=== PATIENT | male | born 1980 | race Caucasian/White ===

== ENCOUNTER 2016-12-21 06:32 | Emergency (ER) | payer OTHER ==
[~2016-12-21] VITALS: Ht 175.3 cm; Wt 110.0 kg
[2016-12-21 06:37] VITALS: BP 123/90; PULSE 91; RESP 18; TEMP 98.2; O2SAT 97
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
[2016-12-21] MEDS ORDERED: ACETAMINOPHEN/HYDROcodone 325 MG/5 MG TAB PO ONE (07:15)
[2016-12-21] MEDS ORDERED: ULTR50TA5 PO (08:00)
[2016-12-21] MEDS ORDERED: MOBI15TA PO (08:00)
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
[2016-12-21 08:09] VITALS: RESP 18
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
== END 2016-12-21 08:09 | disposition home or self-care (01) ==
LOC: PHED 06:32
DX: S40.011A Contusion of right shoulder, initial encounter (principal); S20.211A Contusion of right front wall of thorax, initial encounter; S70.01XA Contusion of right hip, initial encounter; S90.31XA Contusion of right foot, initial encounter; V18.9XXA Unspecified pedal cyclist injured in noncollision transport accident in traffic accident, initial encounter
CPT/HCPCS: 71101; 72100; 73030; 73502; 73610; 73630; 99284

== ENCOUNTER 2017-01-23 20:15 | Emergency (ER) | payer OTHER ==
[~2017-01-23] VITALS: Ht 175.3 cm; Wt 114.0 kg
[~2017-01-23 20:15] MED LIST: MOBI15TA PO; ULTR50TA5 PO
[2017-01-23 20:20] VITALS: BP 139/100; PULSE 99; RESP 18; TEMP 98.3; O2SAT 96
[2017-01-23] MEDS ORDERED: SODIUM CHLOR 0.9% 1000 ML INJ 1,000 ML IV SCH (20:45)
[2017-01-23] MEDS ORDERED: ONDANSETRON HCL 4 MG/2 ML VIAL IVP ONE (20:45)
[2017-01-23] MEDS ORDERED: SODIUM CHLORIDE 0.9% FLUSH 10 ML FLUSH IV FLUSH PRN (20:45)
[2017-01-23] MEDS ORDERED: MORPHINE SULFATE 4 MG/ML INJ IV PUSH ONE ×2 (20:45→22:00)
--- NOTE | 2017-01-23 20:49 | PD ---
HPI Chief Complaint: Abdominal Pain Time Seen by Provider: 20:40 Travel History International Travel<30 days: No Contact w/Intl Traveler<30days: No Traveled to known affect area: No History of Present Illness HPI 36-year-old male here for evaluation of abdominal pain. Patient reports right lower quadrant abdominal pain that has been going on for the last 2 days, constant, intermittently worse at times. Pain is currently 6 out of 10 and described as a pressure, nonradiating, worse with movement and palpation. Today pain is associated with nausea and vomiting which consists of recently of food. He had a normal bowel movement earlier today. He denies melena or hematochezia. No diarrhea. No history of abdominal surgeries. No urinary symptoms. PFSH Past Medical History Diminished Hearing: No Kidney Stones: Yes Immunizations Current: Yes Social History Alcohol Use: Yes Tobacco Use: No Substance Use: No Allergies-Medications (Allergen,Severity, Reaction): Coded Allergies: No Known Allergies (Unverified , 01/23/17) Reported Meds & Prescriptions Reported Meds & Active Scripts Active Review of Systems Except as stated in HPI: all other systems reviewed are Neg Physical Exam Narrative GENERAL: Well-developed, well-nourished, overweight, comfortable, no acute distress. SKIN: Focused skin assessment warm/dry. No rash. HEAD: Atraumatic. Normocephalic. EYES: Pupils equal and round. No scleral icterus. No injection or drainage. ENT: Mucous membranes pink and moist. NECK: Trachea midline. No JVD. CARDIOVASCULAR: Regular rate and rhythm. RESPIRATORY: No accessory muscle use. Clear to auscultation. Breath sounds equal bilaterally. GASTROINTESTINAL: Abdomen soft, nondistended. Moderate right lower quadrant and left lower quadrant tenderness without peritoneal signs. Mild right upper quadrant tenderness. Normal bowel sounds. No hernias. MUSCULOSKELETAL: No obvious deformities. No clubbing. No cyanosis. No edema. NEUROLOGICAL: Awake and alert. No obvious cranial nerve deficits. Motor grossly within normal limits. Normal speech. PSYCHIATRIC: Appropriate mood and affect; insight and judgment normal. Data Data Last Documented VS Vital Signs Date Time Temp Pulse Resp B/P Pulse Ox O2 Delivery O2 Flow Rate FiO2 01/23/17 20:20 98.3 99 18 139/100 96 Orders Complete Blood Count With Diff (01/23/17 20:45) Comprehensive Metabolic Panel (01/23/17 20:45) Lipase (01/23/17 20:45) Lactic Acid (01/23/17 20:45) Prothrombin Time / Inr (Pt) (01/23/17 20:45) Act Partial Throm Time (Ptt) (01/23/17 20:45) Urinalysis - C+S If Indicated (01/23/17 20:45) Ct Abd/Pel W Iv Contrast(Rout) (01/23/17 20:45) Iv Access Insert/Monitor (01/23/17 20:45) Ecg Monitoring (01/23/17 20:45) Oximetry (01/23/17 20:45) Ondansetron Inj (Zofran Inj) (01/23/17 20:45) Sodium Chlor 0.9% 1000 Ml Inj (Ns 1000 M (01/23/17 20:45) Sodium Chloride 0.9% Flush (Ns Flush) (01/23/17 20:45) Morphine Inj (Morphine Inj) (01/23/17 21:30) Iohexol 350 Inj (Omnipaque 350 Inj) (01/23/17 21:35) Morphine Inj (Morphine Inj) (01/23/17 22:00) Labs Laboratory Tests Test 01/23/17 01/23/17 20:55 21:00 Urine Color YELLOW Urine Turbidity CLEAR Urine pH 6.0 Urine Specific Burt 1.022 Urine Protein NEG mg/dL Urine Glucose (UA) NEG mg/dL Urine Ketones NEG mg/dL Urine Occult Blood NEG Urine Nitrite NEG Urine Bilirubin NEG Urine Leukocyte Esterase NEG Urine RBC 0-3 /hpf Urine WBC 0-2 /hpf Urine Transitional Epithelial 0-5 /hpf Cells Urine Mucus RARE /lpf Microscopic Urinalysis Comment CULT NOT INDICATED White Blood Count 12.4 TH/MM3 Red Blood Count 5.10 MIL/MM3 Hemoglobin 14.6 GM/DL Hematocrit 43.6 % Mean Corpuscular Volume 85.5 FL Mean Corpuscular Hemoglobin 28.6 PG Mean Corpuscular Hemoglobin 33.5 % Concent Red Cell Distribution Width 12.7 % Platelet Count 317 TH/MM3 Mean Platelet Volume 8.0 FL Neutrophils (%) (Auto) 59.9 % Lymphocytes (%) (Auto) 26.0 % Monocytes (%) (Auto) 7.7 % Eosinophils (%) (Auto) 3.3 % Basophils (%) (Auto) 3.1 % Neutrophils # (Auto) 7.4 TH/MM3 Lymphocytes # (Auto) 3.2 TH/MM3 Monocytes # (Auto) 1.0 TH/MM3 Eosinophils # (Auto) 0.4 TH/MM3 Basophils # (Auto) 0.4 TH/MM3 CBC Comment DIFF FINAL Differential Comment Prothrombin Time 10.7 SEC Prothromb Time International 1.0 RATIO Ratio Activated Partial 29.6 SEC Thromboplast Time Sodium Level 140 MEQ/L Potassium Level 3.4 MEQ/L Chloride Level 104 MEQ/L Carbon Dioxide Level 25.4 MEQ/L Anion Gap 11 MEQ/L Blood Urea Nitrogen 11 MG/DL Creatinine 0.83 MG/DL Estimat Glomerular Filtration 104 ML/MIN Rate Random Glucose 123 MG/DL Lactic Acid Level 1.9 mmol/L Calcium Level 9.2 MG/DL Total Bilirubin 0.2 MG/DL Aspartate Amino Transf 15 U/L (AST/SGOT) Alanine Aminotransferase 38 U/L (ALT/SGPT) Alkaline Phosphatase 90 U/L Total Protein 7.8 GM/DL Albumin 3.9 GM/DL Lipase 139 U/L [facility] Medical Decision Making Medical Screen Exam Complete: Yes Emergency Medical Condition: Yes Differential Diagnosis Appendicitis, colitis, cystitis, diverticulitis, UTI, nephrolithiasis, ureterolithiasis Narrative Course Vital signs reviewed. CBC shows WBC 12.4, hemoglobin 14.6, hematocrit 43.6, platelets 317. CMP is remarkable for potassium 3.4 otherwise unremarkable. UA is not suggestive of UTI. CT abdomen/pelvis: CONCLUSION: 1. Unremarkable bowel gas pattern and normal appendix. 2. 3 mm nonobstructing left renal calculus. 3. Mild hepatic steatosis. 4. Unremarkable gallbladder. Patient and the patient's significant other were made aware of all findings. Morphine helped with his pain, however he is requesting another dose. There are no peritoneal signs on exam. At this point patient is stable for discharge home with outpatient follow-up this week. He states he has an appointment with a primary care physician on Monday. I will also given the name of the price analyst supervisor display fabrication with whom to follow-up with this week. He was informed on when to return to the emergency department. He verbalizes understanding and agreement with plan. Diagnosis Primary Impression: Abdominal pain Qualified Code: R10.30 - Lower abdominal pain Referrals: Marcus Ocampo MD 3 days [facility] Primary Care Physician 3 days Additional Instructions: Follow-up with a primary care physician this week. Follow-up with price analyst Dr. Ocampo or a price analyst of your choice this week. Return to the emergency department for worsening symptoms or any other concerns. Scripts Dicyclomine (Bentyl)10 Mg Cap10 Mg PO TID PRN (Bowel Management) #15 CAP Ref 0 Prov:Jorge Clements MD 01/23/17 Oxycodone-Acetaminophen (Percocet)5-325 mg Tab1 Tab PO Q6H PRN (PAIN) #15 TAB Ref 0 Prov:Jorge Clements MD 01/23/17 Disposition: 01 DISCHARGE HOME Condition: Stable Jorge Clements MD Jan 23, 2017 20:49
[2017-01-23 21:08] LABS: BLOOD, URINE NEG (NEG); GLUCOSE,URINE NEG (NEG); KETONE, URINE NEG (NEG); NITRITE,URINE NEG (NEG)
[2017-01-23 21:09] LABS: AUTOMATED NEUTROPHIL # 7.4 TH/MM3 (1.8-7.7); BASOPHIL # 0.4 TH/MM3 (0-0.2); BASOPHIL % 3.1 % (0.0-2.0); EOSINOPHIL # 0.4 TH/MM3 (0-0.4); EOSINOPHIL % 3.3 % (0.0-4.0); HEMATOCRIT 43.6 % (39.0-51.0); LYMPHOCYTE # 3.2 TH/MM3 (1.0-4.8); MEAN CELL VOLUME 85.5 FL (80.0-100.0); MEAN CORPUSCULAR HEMOGLOBIN 28.6 PG (27.0-34.0); MEAN CORPUSCULAR HGB CONC 33.5 % (32.0-36.0); MONO % 7.7 % (0.0-8.0); NEUT % 59.9 % (16.0-70.0); PLATELET COUNT 317 TH/MM3 (150-450); RED CELL DISTRIBUTION WIDTH 12.7 % (11.6-17.2); WHITE BLOOD COUNT 12.4 TH/MM3 (4.0-11.0)
[2017-01-23 21:13] LABS: URINE COLOR YELLOW (YELLW/STRAW)
[2017-01-23 21:14] LABS: COMMENT (UR) CULT NOT INDICATED; CULTURE IF INDICATED CULT NOT INDICATED; MUCUS URINE RARE /lpf (OCC); RBC, URINE 0-3 /hpf (0-3); TRANSITIONAL EPI CELLS, URINE 0-5 /hpf; WBC, URINE 0-2 /hpf (0-5)
[2017-01-23 21:16] LABS: CHLORIDE 104 MEQ/L (98-107); POTASSIUM 3.4 MEQ/L (3.5-5.1); SODIUM (NA) 140 MEQ/L (136-145)
[2017-01-23 21:20] LABS: ANION GAP 11 MEQ/L (5-15); BICARBONATE 25.4 MEQ/L (21.0-32.0)
[2017-01-23 21:21] LABS: BLOOD UREA NITROGEN 11 MG/DL (7-18)
[2017-01-23 21:23] LABS: ALT (GPT) 38 U/L (12-78); APTT (PATIENT) 29.6 SEC (24.3-30.1); AST (GOT) 15 U/L (15-37); GLOMERULAR FILTRATION RATE 104 ML/MIN (>89); PROTHROMBIN TIME - PATIENT 10.7 SEC (9.8-11.6)
[2017-01-23 21:25] LABS: TOTAL BILIRUBIN ADULT 0.2 MG/DL (0.2-1.0)
[2017-01-23 21:26] LABS: ALKALINE PHOSPHATASE 90 U/L (45-117)
[2017-01-23] MEDS ORDERED: MORPHINE SULFATE 8 MG/ML INJ IV PUSH ONE (21:30)
[2017-01-23] MEDS ORDERED: IOHEXOL 350 MG/ML 10 ML VIAL (for RAD DIAG) IV ONE (21:35)
--- NOTE | 2017-01-23 21:47 | RADRPT ---
EXAM DATE/TIME: 01/23/2017 21:23 [facility] COMPARISON: No previous studies available for comparison. INDICATIONS : Right lower quadrant pain x 2 days. Nausea and vomiting. IV CONTRAST: 85 cc Omnipaque 350 (iohexol) IV ORAL CONTRAST: No oral contrast ingested. RADIATION DOSE: 21.02 CTDIvol (mGy) MEDICAL HISTORY : Renal calculi. SURGICAL HISTORY : None. ENCOUNTER: Initial ACUITY: 2 days PAIN SCALE: 6/10 LOCATION: Right lower quadrant TECHNIQUE: Volumetric scanning of the abdomen and pelvis was performed. Using automated exposure control and ad justment of the mA and/or kV according to patient size, radiation dose was kept as low as reasonably achievable to obtain optimal diagnostic quality images. DICOM format image data is available electro nically for review and comparison. FINDINGS: LOWER LUNGS: The visualized lower lungs are clear. LIVER: Homogeneous density without lesion. There is no dilation of the biliary tree. No calcified gallston es. There is mild hepatic steatosis. SPLEEN: Normal size without lesion. PANCREAS: Within normal limits. KIDNEYS: Normal in size and shape. There is no solid mass, stone or hydronephrosis. There is a 3 mm nonobstru cting left renal calculus. There are simple cysts in the central left kidney and right upper pole. ADRENAL GLANDS: Within normal limits. VASCULAR: There is no aortic aneurysm. BOWEL/MESENTERY: The stomach, small bowel, and colon demonstrate no acute abnormality. There is no free intraperitone al air or fluid. ABDOMINAL WALL: Within normal limits. RETROPERITONEUM: There is no lymphadenopathy. BLADDER: No wall thickening or mass. REPRODUCTIVE: Within normal limits. INGUINAL: There is no lymphadenopathy or hernia. MUSCULOSKELETAL: Within normal limits for patient age. CONCLUSION: 1. Unremarkable bowel gas pattern and normal appendix. 2. 3 mm nonobstructing left renal calculus. 3. Mild hepatic steatosis. 4. Unremarkable gallbladder. Jose Manuel Sanchez MD on January 23, 2017 at 21:42 Board Certified Radiologist. This report was verified electronically.
[2017-01-23 21:50] LABS: HEMO FLAGS DIFF FINAL
[2017-01-23] MEDS ORDERED: DICYCLOMINE HCL 10 MG CAP PO ONE (22:00)
[2017-01-23] MEDS ORDERED: DICY10 PO (22:03)
[2017-01-23] MEDS ORDERED: PERC5TAB12 PO (22:03)
[2017-01-23] MEDS ORDERED: MORPHINE SULFATE 8 MG/ML INJ IV PUSH SCH (22:30)
[2017-01-23 23:00] VITALS: RESP 18
[2017-01-23 23:13] VITALS: BP 138/98
== END 2017-01-23 23:15 | disposition home or self-care (01) ==
LOC: PHED 20:15
DX: R10.30 Lower abdominal pain, unspecified (principal)
CPT/HCPCS: 74177; 80053; 81001; 83605; 83690; 85025; 85610; 85730; 96361; 96374; 96375; 96376; 99285; J2270; J2405; J7030; Q9967

== ENCOUNTER 2017-01-25 07:27 | Observation (INO) | payer OTHER ==
[~2017-01-25] VITALS: Ht 175.3 cm; Wt 113.7 kg
[~2017-01-25 07:27] MED LIST changes: +DICY10 PO; -MOBI15TA PO; +PERC5TAB12 PO; -ULTR50TA5 PO
[2017-01-25 07:40] VITALS: BP 122/89; PULSE 91; RESP 16; TEMP 98.4; O2SAT 94
[2017-01-25 07:45] LABS: BLOOD, URINE NEG (NEG); GLUCOSE,URINE NEG (NEG); KETONE, URINE NEG (NEG); NITRITE,URINE NEG (NEG)
[2017-01-25 07:53] LABS: METHOD OF COLLECTION CLEAN CATCH; URINE COLOR YELLOW (YELLW/STRAW)
[2017-01-25 07:54] LABS: COMMENT (UR) CULT NOT INDICATED; CULTURE IF INDICATED CULT NOT INDICATED; RBC, URINE 0-3 /hpf (0-3); SQUAMOUS EPITHELIAL CELL URINE 0-5 /hpf (0-5)
[2017-01-25] MEDS ORDERED: MORPHINE SULFATE 4 MG/ML INJ IV PUSH ONE (08:00)
[2017-01-25] MEDS ORDERED: ONDANSETRON HCL 4 MG/2 ML VIAL IV PUSH ONE (08:00)
--- NOTE | 2017-01-25 08:07 | PD ---
HPI Chief Complaint: Abdominal Pain Time Seen by Provider: 07:34 Travel History International Travel<30 days: No Contact w/Intl Traveler<30days: No Traveled to known affect area: No History of Present Illness HPI This is a 36-year-old male patient who presents with a complaint of persistent abdominal pain. Patient states symptoms started approximately 1 week ago. Patient was seen in the ER on January 23 of this year when the abdomen was done and was read as negative. Patient RECURRENT episodes of vomiting. Patient notes increased pain this morning rated 10/10. Patient denies fever chills but notes a decrease in appetite and oral intake. Patient denies urinary symptoms. Patient states he had a history of kidney stones in the past but states the pain feels different this time . PFSH Past Medical History Medical History: Denies Significant Hx Diminished Hearing: No Kidney Stones: Yes Immunizations Current: Yes Past Surgical History Surgical History: No Previous Surgery Social History Alcohol Use: Yes Tobacco Use: No Substance Use: No Allergies-Medications (Allergen,Severity, Reaction): Coded Allergies: No Known Allergies (Unverified , 01/25/17) Reported Meds & Prescriptions Reported Meds & Active Scripts Active Bentyl (Dicyclomine HCl) 10 Mg Cap 10 Mg PO TID PRN Percocet (Oxycodone-Acetaminophen) 5-325 mg Tab 1 Tab PO Q6H PRN Review of Systems ROS Limitations: Clinical Condition General / Constitutional: No: Fever, Chills, Weight Gain, Weight Loss, Other Eyes: No: Diploplia, Blurred Vision, Photophobia, Drainage, Redness, Foreign Body Sensation, Pain, Tearing, Blind Spots, Visual changes, Blindness, Other HENT: No: Headaches, Vertigo, Lightheadedness, Sore Throat, Rhinitis, Rhinorrhea, Congestion, Nosebleed, Neck Stiffness, Neck Pain, Masses, Gingival Bleeding, Dental Difficulties, Ear Discharge, Earache, Other Cardiovascular: No: Chest Pain or Discomfort, Palpitations, Irregular Rhythm, Tachycardia, Diaphoresis, Syncope, Dyspnea on exertion, Varicosities, Edema, Cyanosis, Varicosities, Phlebitis, Claudication, Other Respiratory: No: Cough, Shortness of Breath, Wheezing, Sneezing, Orthopnea, Hemoptysis, Stridor, Night Sweats, Pleuritic Pain, Other Gastrointestinal: Positive: Nausea, Vomiting, Diarrhea, Abdominal Pain, Loss of Appetite, No: Hematemesis, Hematochezia, Constipation, Changes in Bowel Habits, Indigestion, Dysphagia, Other Genitourinary: No: Urgency, Frequency, Dysuria, Nocturia, Hematuria, Decreased Urinary Output, Oliguria, Hesitancy, Dribbling, Incontinence, Pelvic Pain, Flank Pain, Dyspareunia, Discharge, Dysmenorrhea, Menorrhagia, Metorrhagia, Vaginal Bleeding, Other Musculoskeletal: No: Myalgias, Arthralgias, Limited ROM, Weakness, Cramping, Edema, Pain, Atrophy, Other Skin: No Rash, No Itching, No Dryness, No Lumps, No Hives, No Change in Pigmentation, No Change in nails, No Alopecia, No Lesions, No Breast Lumps, No Breast Tenderness, No Breast Swelling, No Other Neurologic: No: Weakness, Dizziness, Syncope, Focal Abnormalities, Coordination Problem, Tremor, Ataxia, Headache, Change in Mentation, Slurred Speech, Paresthesia, Incontinence, Seizures, Sensory Disturbance, Other Psychiatric: No: Anxiety, Depression, Suicidal Ideations, Disorder of Thought, Mood Disorder, Substance Abuse, Homicidal Ideation, Other Endocrine: No: Heat Intolerance, Cold Intolerance, Polyuria, Polydipsia, Other Hematologic/Lymphatic: No: Easy Bruising, Lymph Node Enlargement, Other Physical Exam Exam Limitations: Clinical Condition Narrative GENERAL: [-]O male in moderate distress secondary to pain SKIN: Focused skin assessment warm/dry.no lesions no cyanosis no erythema HEAD: Atraumatic. Normocephalic. EYES: Pupils equal and round and reactive . No scleral icterus. No injection or drainage. ENT: No nasal bleeding or discharge. Oral mucosa appears dry NECK: Trachea midline. No JVD. CARDIOVASCULAR: S1-S2 appreciated. Regular rate and rhythm. No murmur appreciated. Pulses normal throughout. RESPIRATORY: No accessory muscle use. Clear to auscultation. Breath sounds equal bilaterally. GASTROINTESTINAL: Abdomen obese soft no peritoneal signs positive tenderness in the LLQ mild failure exquisite tenderness in the right lower quadrant no masses felt no organomegaly rectal exam deferred patient denies bloody stools or rectal pain MUSCULOSKELETAL: No obvious deformities. No clubbing. No cyanosis. No edema. NEUROLOGICAL: Awake and alert and oriented 3.. No obvious cranial nerve deficits. Motor and sensory exam grossly within normal limits. Normal speech. No meningeal signs. PSYCHIATRIC: Appropriate mood and affect; insight and judgment normal. No suicidal or homicidal ideation. Data Data Last Documented VS Vital Signs Date Time Temp Pulse Resp B/P Pulse Ox O2 Delivery O2 Flow Rate FiO2 01/25/17 08:56 87 16 154/74 94 Room Air 01/25/17 07:40 98.4 Orders Urinalysis - C+S If Indicated (01/25/17 07:30) Complete Blood Count With Diff (01/25/17 07:57) Lipase (01/25/17 07:57) Comprehensive Metabolic Panel (01/25/17 07:57) Direct Bilirubin (01/25/17 07:57) Sodium Chlor 0.9% 1000 Ml Inj (Ns 1000 M (01/25/17 08:00) Ondansetron Inj (Zofran Inj) (01/25/17 08:00) Morphine Inj (Morphine Inj) (01/25/17 08:15) Ct Abd/Pel W Iv Contrast(Rout) (01/25/17 ) Diatrizoate Liq ( Gastroview Liq) (01/25/17 08:43) Fentanyl Inj (Fentanyl Inj) (01/25/17 08:45) Diatrizoate Liq ( Gastroview Liq) (01/25/17 08:48) Oral Contrast - Adult (01/25/17 09:00) Iohexol 350 Inj (Omnipaque 350 Inj) (01/25/17 10:09) Morphine Inj (Morphine Inj) (01/25/17 10:45) Prochlorperazine Inj (Compazine Inj) (01/25/17 10:45) Place In Observation (01/25/17 ) Vital Signs (Adult) Q4H (01/25/17 11:13) Activity Oob Ad Kiana (01/25/17 11:13) Diet Clear Liquid (01/25/17 Lunch) Sodium Chlor 0.9% 1000 Ml Inj (Ns 1000 M (01/25/17 11:13) Sodium Chloride 0.9% Flush (Ns Flush) (01/25/17 11:15) Sodium Chloride 0.9% Flush (Ns Flush) (01/25/17 21:00) Acetaminophen (Tylenol) (01/25/17 12:00) Ondansetron Inj (Zofran Inj) (01/25/17 14:00) Basic Metabolic Panel (Bmp) (01/26/17 06:00) Complete Blood Count With Diff (01/26/17 06:00) Scd Bilateral/Knee High BLAIR.BID (01/25/17 11:13) Naloxone Inj (Narcan Inj) (01/25/17 11:15) Docusate Sodium-Senna (Marielena-Colace) (01/25/17 21:00) Magnesium Hydroxide Liq (Milk Of Magnesi (01/25/17 12:00) Sennosides (Senokot) (01/25/17 12:00) Bisacodyl Supp (Dulcolax Supp) (01/25/17 12:00) Lactulose Liq (Lactulose Liq) (01/25/17 12:00) Labs Laboratory Tests Test 01/25/17 01/25/17 07:30 08:00 Urine Collection Type CLEAN CATCH Urine Color YELLOW Urine Turbidity CLEAR Urine pH 6.0 Urine Specific [place] 1.018 Urine Protein NEG mg/dL Urine Glucose (UA) NEG mg/dL Urine Ketones NEG mg/dL Urine Occult Blood NEG Urine Nitrite NEG Urine Bilirubin NEG Urine Leukocyte Esterase NEG Urine RBC 0-3 /hpf Urine Squamous Epithelial 0-5 /hpf Cells Microscopic Urinalysis Comment CULT NOT INDICATED Urine Collection Time 07:30 White Blood Count 8.2 TH/MM3 Red Blood Count 5.09 MIL/MM3 Hemoglobin 14.5 GM/DL Hematocrit 43.7 % Mean Corpuscular Volume 85.7 FL Mean Corpuscular Hemoglobin 28.4 PG Mean Corpuscular Hemoglobin 33.1 % Concent Red Cell Distribution Width 12.6 % Platelet Count 295 TH/MM3 Mean Platelet Volume 8.0 FL Neutrophils (%) (Auto) 63.4 % Lymphocytes (%) (Auto) 22.3 % Monocytes (%) (Auto) 6.2 % Eosinophils (%) (Auto) 4.2 % Basophils (%) (Auto) 3.9 % Neutrophils # (Auto) 5.3 TH/MM3 Lymphocytes # (Auto) 1.8 TH/MM3 Monocytes # (Auto) 0.5 TH/MM3 Eosinophils # (Auto) 0.3 TH/MM3 Basophils # (Auto) 0.3 TH/MM3 CBC Comment DIFF FINAL Differential Comment Sodium Level 141 MEQ/L Potassium Level 4.0 MEQ/L Chloride Level 104 MEQ/L Carbon Dioxide Level 26.1 MEQ/L Anion Gap 11 MEQ/L Blood Urea Nitrogen 10 MG/DL Creatinine 0.80 MG/DL Estimat Glomerular Filtration 108 ML/MIN Rate Random Glucose 101 MG/DL Calcium Level 8.5 MG/DL Total Bilirubin 0.4 MG/DL Direct Bilirubin 0.1 MG/DL Aspartate Amino Transf 19 U/L (AST/SGOT) Alanine Aminotransferase 41 U/L (ALT/SGPT) Alkaline Phosphatase 77 U/L Total Protein 7.6 GM/DL Albumin 3.8 GM/DL Lipase 100 U/L [facility] Medical Decision Making Medical Screen Exam Complete: Yes Emergency Medical Condition: Yes Medical Record Reviewed: Yes Interpretation(s) ct scan shows a left sided non obstructing calculus - patient presents with right sided abd pain also scattered diverticulosis wbc normal ua normal Differential Diagnosis differential diagnosis: appendicitis right sided diverticulosis constipation obstruction colitis gallbladder disease with referred pain Narrative Course This is a 36-year-old male who presents to the emergency department for the second visit with a complaint of persistent pain in the right lower quadrant CT scan examination is only positive for left-sided 3 mm nonobstructing stone and scattered diverticulosis white cell count is improved despite taking Percocet and Reglan patient complains of persistent pain vomiting and loose stools. Patient denies fever and chills. Patient medicated for pain 3 doses 2 doses of morphine and 1 dose of fentanyl with associated doses of Zofran and Compazine respectively. Case discussed with admitting hospitalist Dr. Lafleur. Pain is not able to be controlled with IV narcotic medication and patient has presented to the ER twice within 1 week for the same problem. So patient will be admitted for observation ultrasound and further management. Physician Communication Physician Communication Stoney lafleur Diagnosis Primary Impression: Intractable abdominal pain Admitting Information Admitting Physician Requests: Observation Condition: Stable Emili Gay MD Jan 25, 2017 08:06
[2017-01-25 08:08] LABS: AUTOMATED NEUTROPHIL # 5.3 TH/MM3 (1.8-7.7); BASOPHIL # 0.3 TH/MM3 (0-0.2); BASOPHIL % 3.9 % (0.0-2.0); EOSINOPHIL # 0.3 TH/MM3 (0-0.4); EOSINOPHIL % 4.2 % (0.0-4.0); HEMATOCRIT 43.7 % (39.0-51.0); HEMO FLAGS DIFF FINAL; LYMPH % 22.3 % (9.0-44.0); LYMPHOCYTE # 1.8 TH/MM3 (1.0-4.8); MEAN CELL VOLUME 85.7 FL (80.0-100.0); MEAN CORPUSCULAR HEMOGLOBIN 28.4 PG (27.0-34.0); MEAN CORPUSCULAR HGB CONC 33.1 % (32.0-36.0); MONO % 6.2 % (0.0-8.0); NEUT % 63.4 % (16.0-70.0); PLATELET COUNT 295 TH/MM3 (150-450); RED BLOOD COUNT 5.09 MIL/MM3 (4.50-5.90); RED CELL DISTRIBUTION WIDTH 12.6 % (11.6-17.2); WHITE BLOOD COUNT 8.2 TH/MM3 (4.0-11.0)
[2017-01-25] MEDS ORDERED: MORPHINE SULFATE 8 MG/ML INJ IV PUSH ONE ×2 (08:15→10:45)
[2017-01-25] MEDS: SODIUM CHLOR 0.9% 1000 ML INJ 1,000 ML IV SCH ×4 (08:20→18:00)
[2017-01-25 08:29] LABS: CHLORIDE 104 MEQ/L (98-107); SODIUM (NA) 141 MEQ/L (136-145)
[2017-01-25 08:33] LABS: ANION GAP 11 MEQ/L (5-15); BICARBONATE 26.1 MEQ/L (21.0-32.0); BLOOD UREA NITROGEN 10 MG/DL (7-18)
[2017-01-25 08:36] LABS: ALT (GPT) 41 U/L (12-78); AST (GOT) 19 U/L (15-37); GLOMERULAR FILTRATION RATE 108 ML/MIN (>89)
[2017-01-25 08:37] LABS: TOTAL BILIRUBIN ADULT 0.4 MG/DL (0.2-1.0)
[2017-01-25 08:39] LABS: ALKALINE PHOSPHATASE 77 U/L (45-117)
[2017-01-25] MEDS ORDERED: DIATRIZOATE MEGLUM/DIATRIZOATE SOD 9 ML CUP ONE ×2 (08:43→08:48)
[2017-01-25 08:56] VITALS: BP 154/74; PULSE 87; RESP 16; O2SAT 94
[2017-01-25] MEDS ORDERED: IOHEXOL 350 MG/ML 10 ML VIAL (for RAD DIAG) IV ONE (10:09)
--- NOTE | 2017-01-25 10:31 | RADRPT ---
EXAM DATE/TIME: 01/25/2017 10:00 [facility] COMPARISON: CT ABDOMEN & PELVIS W CONTRAST, January 23, 2017, 21:23. INDICATIONS : Right lower quadrant pain for 1 week. Persistent vomiting. IV CONTRAST: 94 cc Omnipaque 350 (iohexol) IV ORAL CONTRAST: Prescribed oral contrast ingested. RADIATION DOSE: 21.76 CTDIvol (mGy) MEDICAL HISTORY : Renal calculi. SURGICAL HISTORY : None. ENCOUNTER: Subsequent ACUITY: 1 week PAIN SCALE: 7/10 LOCATION: Right lower quadrant abdomen TECHNIQUE: Volumetric scanning of the abdomen and pelvis was performed. Using automated exposure control and ad justment of the mA and/or kV according to patient size, radiation dose was kept as low as reasonably achievable to obtain optimal diagnostic quality images. DICOM format image data is available electro nically for review and comparison. FINDINGS: LOWER LUNGS: The visualized lower lungs are clear. LIVER: The liver demonstrates mild diffuse fatty infiltration. No focal mass is noted. There is no dilation of the biliary tree. No calcified gallstones. SPLEEN: Normal size without lesion. PANCREAS: Within normal limits. KIDNEYS: Normal in size and shape. There is no solid mass or hydronephrosis. There is a 3 mm calcified nonobs tructing lower pole left renal calculus. Scattered simple renal cysts are noted and are stable. ADRENAL GLANDS: Within normal limits. VASCULAR: There is no aortic aneurysm. BOWEL/MESENTERY: The appendix is normal. Few uncomplicated colonic diverticula are noted. The stomach, small bowel, an d colon demonstrate no acute abnormality. There is no free intraperitoneal air or fluid. ABDOMINAL WALL: Within normal limits. RETROPERITONEUM: There is no lymphadenopathy. BLADDER: No wall thickening or mass. REPRODUCTIVE: Within normal limits. INGUINAL: There is no lymphadenopathy or hernia. MUSCULOSKELETAL: Within normal limits for patient age. CONCLUSION: 1. 3 mm calcified nonobstructing lower pole left renal calculus. 2. Fatty liver. 3. Scattered uncomplicated colonic diverticulosis. 4. Multiple stable renal cysts. 5. No CT evidence of acute appendicitis. Wes Dick MD on January 25, 2017 at 10:21 Board Certified Radiologist. This report was verified electronically.
[2017-01-25] MEDS ORDERED: PROCHLORPERAZINE INJ 10 MG/2 ML VIAL IV ONE (10:45)
[2017-01-25] MEDS ORDERED: NALOXONE HCL 0.4 MG/ML AMP IV PRN (11:15)
[2017-01-25] MEDS ORDERED: SODIUM CHLORIDE 0.9% FLUSH 10 ML FLUSH IV FLUSH PRN (11:15)
[2017-01-25] MEDS ORDERED: MAGNESIUM HYDROXIDE SUSP 30 ML CUP PO PRN (12:00)
[2017-01-25] MEDS ORDERED: ACETAMINOPHEN 325 MG TAB PO PRN (12:00)
[2017-01-25] MEDS ORDERED: BISACODYL 10 MG SUPP RECTAL PRN (12:00)
[2017-01-25] MEDS ORDERED: LACTULOSE SYRUP 20 GM/30 ML CUP PO PRN (12:00)
[2017-01-25] MEDS ORDERED: SENNOSIDES 8.6 MG TAB PO PRN (12:00)
--- NOTE | 2017-01-25 12:43 | RADRPT ---
EXAM DATE/TIME: 01/25/2017 12:16 [facility] COMPARISON: CT ABDOMEN & PELVIS W CONTRAST, January 25, 2017, 10:00. INDICATIONS : Right upper quadrant pain. MEDICAL HISTORY : Renal calculi. Right upper quadrant pain. ETOH use. SURGICAL HISTORY : None. ENCOUNTER: Initial ACUITY: 1 week PAIN SCORE: 4/10 LOCATION: Right upper quadrant MEASUREMENTS: LIVER: 17.7 cm length COMMON DUCT: 7 mm RIGHT KIDNEY: 11.2 x 4.8 x 5.8 cm FINDINGS: LIVER: Normal echotexture without focal lesion or ductal dilatation. COMMON DUCT: No intraluminal mass or stone visualized. GALLBLADDER: Contains no stones, demonstrates no wall thickening or pericholecystic fluid. PANCREAS: Obscured RIGHT KIDNEY: No evidence of hydronephrosis, stone, or mass. CONCLUSION: Normal examination. Denilson Galindo MD on January 25, 2017 at 12:39 Board Certified Radiologist. This report was verified electronically.
[2017-01-25 12:50] VITALS: BP 134/93; PULSE 80; RESP 20; TEMP 97; O2SAT 95
--- NOTE | 2017-01-25 13:01 | HHI.HP ---
[facility] No Primary Care Physician Admission Diagnosis Intractable pain Diagnoses: Chief Complaint: Abdominal pain Travel History International Travel<30 Days: No Contact w/Intl Traveler <30 Da: No Traveled to Known Affected Are: No History of Present Illness Mr. Hdez is a 36-year-old male with no significant medical history who presents to the emergency department today due to persistent right lower quadrant abdominal pain. His pain started about 1 week ago but has been progressively getting worse. He reports sharp pain with radiation to the lower abdomen. Denies any fever or chills. He denies any constipation. Reports regular bowel movement, somewhat like diarrhea. Denies any hematochezia or melena. Denies any changes in bladder habits. No chest pain, shortness of breath. Review of Systems Except as stated in HPI: all other systems reviewed are Neg Past Family Social History Past Medical History Kidney stones. Past Surgical History No significant surgical history Reported Medications Patient was recently discharged from ED with the following medications. Bentyl (Dicyclomine HCl) 10 Mg Cap 10 Mg PO TID PRN Percocet (Oxycodone-Acetaminophen) 5-325 mg Tab 1 Tab PO Q6H PRN Allergies: Coded Allergies: No Known Allergies (Unverified , 01/25/17) Family History Patient does not know much about his family history. As far as he knows no family history of heart disease are diabetes. Social History Denies using tobacco or illicit substance. He drinks alcohol rarely. Physical Exam Vital Signs Vital Signs Date Time Temp Pulse Resp B/P Pulse Ox O2 Delivery O2 Flow Rate FiO2 01/25/17 12:50 97.0 80 20 134/93 95 01/25/17 12:02 84 16 95 01/25/17 08:56 87 16 154/74 94 Room Air 01/25/17 07:40 98.4 91 16 122/89 94 Physical Exam GENERAL: This is a well-nourished, well-developed patient, in no apparent distress. SKIN: No rashes, ecchymoses or lesions. Warm and dry. HEAD: Atraumatic. Normocephalic. No temporal or scalp tenderness. EYES: Pupils equal round and reactive. No injection or drainage. ENT: Nose without bleeding, purulent drainage or septal hematoma. Airway patent. NECK: Trachea midline. No lymphadenopathy. Supple, nontender, no meningeal signs. CARDIOVASCULAR: Regular rate and rhythm without murmurs, gallops, or rubs. No JVD. RESPIRATORY: Clear to auscultation. Breath sounds equal bilaterally. No wheezes , rales, or rhonchi. GASTROINTESTINAL: Abdomen soft, nondistended. No guarding. Right lower Quadrant is tender to palpation. MUSCULOSKELETAL: Extremities without clubbing, cyanosis, or edema. NEUROLOGICAL: Awake and alert. Cranial nerves II through XII intact. No focal neurological deficits. Normal speech. Laboratory Laboratory Tests Test 01/25/17 01/25/17 07:30 08:00 Urine Collection Type CLEAN CATCH Urine Color YELLOW Urine Turbidity CLEAR Urine pH 6.0 Urine Specific [place] 1.018 Urine Protein NEG Urine Glucose (UA) NEG Urine Ketones NEG Urine Occult Blood NEG Urine Nitrite NEG Urine Bilirubin NEG Urine Leukocyte Esterase NEG Urine RBC 0-3 Urine Squamous Epithelial 0-5 Cells Microscopic Urinalysis Comment CULT NOT INDICATED Urine Collection Time 07:30 White Blood Count 8.2 Red Blood Count 5.09 Hemoglobin 14.5 Hematocrit 43.7 Mean Corpuscular Volume 85.7 Mean Corpuscular Hemoglobin 28.4 Mean Corpuscular Hemoglobin 33.1 Concent Red Cell Distribution Width 12.6 Platelet Count 295 Mean Platelet Volume 8.0 Neutrophils (%) (Auto) 63.4 Lymphocytes (%) (Auto) 22.3 Monocytes (%) (Auto) 6.2 Eosinophils (%) (Auto) 4.2 Basophils (%) (Auto) 3.9 Neutrophils # (Auto) 5.3 Lymphocytes # (Auto) 1.8 Monocytes # (Auto) 0.5 Eosinophils # (Auto) 0.3 Basophils # (Auto) 0.3 CBC Comment DIFF FINAL Differential Comment Sodium Level 141 Potassium Level 4.0 Chloride Level 104 Carbon Dioxide Level 26.1 Anion Gap 11 Blood Urea Nitrogen 10 Creatinine 0.80 Estimat Glomerular Filtration 108 Rate Random Glucose 101 Calcium Level 8.5 Total Bilirubin 0.4 Direct Bilirubin 0.1 Aspartate Amino Transf 19 (AST/SGOT) Alanine Aminotransferase 41 (ALT/SGPT) Alkaline Phosphatase 77 Total Protein 7.6 Albumin 3.8 Lipase 100 Result Diagram: 01/25/17 0800 01/25/17 0800 Imaging Last Impressions Abdomen/Pelvis CT 01/25/17 0000 Signed Impressions: Service Date/Time: Wednesday, January 25, 2017 10:00 - CONCLUSION: 1. 3 mm calcified nonobstructing lower pole left renal calculus. 2. Fatty liver. 3. Scattered uncomplicated colonic diverticulosis. 4. Multiple stable renal cysts. 5. No CT evidence of acute appendicitis. Wes Dick MD Assessment and Plan Problem List: (1) Abdominal pain ICD Code: R10.9 Status: Acute Assessment and Plan Mr. Hdez is a 36 year old male with no significant medical history presents to the ED due to right lower quadrant abdominal pain. He denies any constipation. He has regular bowel movements, somewhat loose. No dysuria, hematuria. CT abdomen/pelvis shows non-obstructive renal stones. No appendicitis. Also shows colonic diverticulosis. - Right lower quadrant abdominal pain - continue IV fluid. - GB US negative. - Continue Percocet and Morphine PRN for pain. - This maybe a functional abdominal pain. Outpatient GI follow up maybe appropriate. Full code. SCDs. Discharge plan: Probable discharge in the AM. Dung Lafleur DO Jan 25, 2017 13:01
[2017-01-25] MEDS: MORPHINE SULFATE 4 MG/ML INJ IV PUSH PRN ×2 (13:42→20:49)
[2017-01-25 16:00] VITALS: BP 138/88; PULSE 88; RESP 20; TEMP 97.7; O2SAT 96
[2017-01-25] MEDS: oxyCODONE/ACETAMINOPHEN 7.5 MG/325 MG TAB PO PRN ×2 (16:38→22:24)
[2017-01-25] MEDS: ONDANSETRON HCL 4 MG/2 ML VIAL IVP PRN (16:39)
[2017-01-25 20:00] VITALS: BP 141/78; PULSE 74; RESP 16; TEMP 98.3; O2SAT 95
[2017-01-25] MEDS: DOCUSATE SODIUM 50 MG/SENNA 8.6 MG TAB PO SCH (20:50)
[2017-01-25] MEDS: SODIUM CHLORIDE 0.9% FLUSH 10 ML FLUSH IV FLUSH SCH (20:53)
[2017-01-26] VITALS: BP 133/84; PULSE 63; RESP 16; TEMP 98.4; O2SAT 98
[2017-01-26] MEDS: SODIUM CHLOR 0.9% 1000 ML INJ 1,000 ML IV SCH ×2 (02:52→09:11)
[2017-01-26 04:00] VITALS: TEMP 97.6
[2017-01-26 06:17] LABS: AUTOMATED NEUTROPHIL # 4.2 TH/MM3 (1.8-7.7); BASOPHIL # 0.1 TH/MM3 (0-0.2); BASOPHIL % 0.9 % (0.0-2.0); EOSINOPHIL # 0.3 TH/MM3 (0-0.4); EOSINOPHIL % 4.1 % (0.0-4.0); HEMATOCRIT 38.8 % (39.0-51.0); LYMPH % 27.6 % (9.0-44.0); LYMPHOCYTE # 1.9 TH/MM3 (1.0-4.8); MEAN CELL VOLUME 84.2 FL (80.0-100.0); MEAN CORPUSCULAR HEMOGLOBIN 29.6 PG (27.0-34.0); MEAN CORPUSCULAR HGB CONC 35.2 % (32.0-36.0); MONO % 6.1 % (0.0-8.0); NEUT % 61.3 % (16.0-70.0); PLATELET COUNT 271 TH/MM3 (150-450); RED BLOOD COUNT 4.61 MIL/MM3 (4.50-5.90); RED CELL DISTRIBUTION WIDTH 12.4 % (11.6-17.2); WHITE BLOOD COUNT 6.9 TH/MM3 (4.0-11.0)
[2017-01-26 06:19] LABS: HEMO FLAGS DIFF FINAL
[2017-01-26 06:25] LABS: POTASSIUM 3.9 MEQ/L (3.5-5.1)
[2017-01-26 06:31] LABS: BICARBONATE 27.4 MEQ/L (21.0-32.0)
[2017-01-26 08:00] VITALS: BP 108/68; PULSE 71; RESP 20; TEMP 98.2; O2SAT 97
[2017-01-26] MEDS: SODIUM CHLORIDE 0.9% FLUSH 10 ML FLUSH IV FLUSH SCH (09:00)
[2017-01-26] MEDS: ONDANSETRON HCL 4 MG/2 ML VIAL IVP PRN (09:14)
[2017-01-26] MEDS: oxyCODONE/ACETAMINOPHEN 7.5 MG/325 MG TAB PO PRN (09:14)
[2017-01-26] MEDS: DOCUSATE SODIUM 50 MG/SENNA 8.6 MG TAB PO SCH (09:15)
[2017-01-26] MEDS ORDERED: PNEUMOCOCCAL POLYVALENT INJ 25 MCG/0.5 ML SYR IM ONE (10:00)
[2017-01-26] MEDS: MORPHINE SULFATE 4 MG/ML INJ IV PUSH PRN (10:12)
[2017-01-26] MEDS ORDERED: DOCU100C PO (11:25)
[2017-01-26] MEDS ORDERED: OXYC1TAB35 PO (11:25)
--- NOTE | 2017-01-26 11:27 | HHI.PR ---
Subjective Remarks Follow-up for right lower quadrant abdominal pain. Patient is doing well. He reports mild pain over right lower quadrant. No fever or chills. Objective Vitals Vital Signs Date Time Temp Pulse Resp B/P Pulse Ox O2 Delivery O2 Flow Rate FiO2 01/26/17 08:00 98.2 71 20 108/68 97 01/26/17 04:00 97.6 01/26/17 00:00 98.4 63 16 133/84 98 01/25/17 20:00 98.3 74 16 141/78 95 01/25/17 16:00 97.7 88 20 138/88 96 01/25/17 12:50 97.0 80 20 134/93 95 01/25/17 12:02 84 16 95 I/O 01/25/17 01/25/17 01/25/17 01/26/17 01/26/17 01/26/17 07:00 15:00 23:00 07:00 15:00 23:00 Intake Total 660 ml 1080 ml Balance 660 ml 1080 ml Intake Oral 660 ml 1080 ml # Voids 4 4 # Bowel Movements 1 Result Diagram: 01/26/17 0510 01/26/17 0510 Imaging Last Impressions Gall Bladder Ultrasound 01/25/17 0000 Signed Impressions: Service Date/Time: Wednesday, January 25, 2017 12:16 - CONCLUSION: Normal examination. Denilson Galindo MD Abdomen/Pelvis CT 01/25/17 0000 Signed Impressions: Service Date/Time: Wednesday, January 25, 2017 10:00 - CONCLUSION: 1. 3 mm calcified nonobstructing lower pole left renal calculus. 2. Fatty liver. 3. Scattered uncomplicated colonic diverticulosis. 4. Multiple stable renal cysts. 5. No CT evidence of acute appendicitis. Wes Dick MD Objective Remarks GENERAL: Alert, oriented 3, NAD. SKIN: Warm and dry. HEAD: Normocephalic. EYES: No scleral icterus. No injection or drainage. NECK: Supple, trachea midline. No JVD or lymphadenopathy. CARDIOVASCULAR: Regular rate and rhythm without murmurs, gallops, or rubs. RESPIRATORY: Breath sounds equal bilaterally. No accessory muscle use. GASTROINTESTINAL: Abdomen soft, non-tender except mild tenderness over right lower quadrant, nondistended. MUSCULOSKELETAL: No cyanosis, or edema. BACK: Nontender without obvious deformity. No CVA tenderness. Procedures None A/P Problem List: (1) Abdominal pain ICD Code: R10.9 Status: Acute Assessment and Plan Mr. Hdez is a 36 year old male with no significant medical history presents to the ED due to right lower quadrant abdominal pain. He denies any constipation. He has regular bowel movements, somewhat loose. No dysuria, hematuria. CT abdomen/pelvis shows non-obstructive renal stones. No appendicitis. Also shows colonic diverticulosis. - Right lower quadrant abdominal pain - continued IV fluid. - GB US negative. - Continue Percocet and Morphine PRN for pain. - This maybe a functional abdominal pain. Outpatient GI follow up maybe appropriate. Full code. SCDs. Discharge patient to home Condition on discharge: Improved Regular Diet as tolerated Ad Kiana activity Rx written: - Percocet 7.5/325mg Q6hrs PRN #20 - Colace 100mg BID PRN. Follow-up with primary care physician within one week and GI within 7-10 days. Gave patient [facility] phone number. Dung Lafleur DO Jan 26, 2017 11:27 am
== END 2017-01-26 12:13 | disposition home or self-care (01) ==
LOC: PHED 07:27 → PHEDA 11:15 → PH3A 12:11
PROVIDERS: ADMIT Hospitalist; ATTEND Hospitalist
DX: R10.31 Right lower quadrant pain (principal); R10.11 Right upper quadrant pain; R11.10 Vomiting, unspecified; N20.0 Calculus of kidney; K76.0 Fatty (change of) liver, not elsewhere classified; K57.30 Diverticulosis of large intestine without perforation or abscess without bleeding; N28.1 Cyst of kidney, acquired; Z23 Encounter for immunization
CPT/HCPCS: 74177; 76705; 80048; 80053; 81001; 82248; 83690; 85025; 90732; 96361; 96374; 96375; 96376; 99285; G0378; J0780; J2270; J2405; J3010; J7030; Q9963; Q9967

== ENCOUNTER 2017-09-14 20:33 | Inpatient (IN) | payer MEDICAID, OTHER ==
[~2017-09-14] VITALS: Ht 177.8 cm; Wt 119.0 kg
[~2017-09-14 20:33] MED LIST changes: -DICY10 PO; +DOCU100C15 PO; +OXYC1TAB35 PO; -PERC5TAB12 PO
[2017-09-14] MEDS ORDERED: IOHEXOL 350 MG/ML 10 ML VIAL (for RAD DIAG) IVCONTRAST ONE (20:34)
[2017-09-14 20:37] VITALS: BP 159/99; PULSE 101; RESP 18; TEMP 98.3; O2SAT 97
[2017-09-14] MEDS ORDERED: SODIUM CHLOR 0.9% 1000 ML INJ 1,000 ML IV SCH (20:57)
[2017-09-14] MEDS ORDERED: ONDANSETRON HCL 4 MG/2 ML VIAL IVP ONE (21:00)
[2017-09-14] MEDS ORDERED: KETOROLAC TROMETHAMINE 30 MG/ML (IVP) VIAL IVP ONE (21:00)
[2017-09-14] MEDS ORDERED: MORPHINE SULFATE 4 MG/ML INJ IV PUSH ONE ×2 (21:00→23:30)
[2017-09-14] MEDS ORDERED: SODIUM CHLORIDE 0.9% FLUSH 10 ML FLUSH IV FLUSH PRN ×2 (21:00→23:45)
[2017-09-14 21:17] VITALS: PULSE 92; RESP 16; O2SAT 95
[2017-09-14 21:17] LABS: AUTOMATED NEUTROPHIL # 6.6 TH/MM3 (1.8-7.7); BASOPHIL # 0.1 TH/MM3 (0-0.2); BASOPHIL % 1.1 % (0.0-2.0); EOSINOPHIL # 0.3 TH/MM3 (0-0.4); EOSINOPHIL % 2.8 % (0.0-4.0); HEMATOCRIT 41.6 % (39.0-51.0); HEMOGLOBIN 13.8 GM/DL (13.0-17.0); LYMPH % 24.9 % (9.0-44.0); LYMPHOCYTE # 2.5 TH/MM3 (1.0-4.8); MEAN CELL VOLUME 85.5 FL (80.0-100.0); MEAN CORPUSCULAR HEMOGLOBIN 28.3 PG (27.0-34.0); MEAN CORPUSCULAR HGB CONC 33.1 % (32.0-36.0); MEAN PLATELET VOLUME 8.1 FL (7.0-11.0); MONO % 4.2 % (0.0-8.0); MONOCYTE # 0.4 TH/MM3 (0-0.9); PLATELET COUNT 295 TH/MM3 (150-450); RED BLOOD COUNT 4.86 MIL/MM3 (4.50-5.90); RED CELL DISTRIBUTION WIDTH 12.4 % (11.6-17.2); WHITE BLOOD COUNT 9.9 TH/MM3 (4.0-11.0)
[2017-09-14 21:26] LABS: BILIRUBIN, URINE NEG (NEG); BLOOD, URINE LARGE (NEG); GLUCOSE,URINE NEG (NEG); KETONE, URINE NEG (NEG); NITRITE,URINE NEG (NEG); URINE LEUKOCYTE ESTERASE NEG (NEG)
[2017-09-14 21:29] LABS: PROTHROMBIN TIME - PATIENT 10.4 SEC (9.8-11.6)
[2017-09-14 21:47] LABS: URINE COLOR BROWN (YELLW/STRAW)
[2017-09-14 21:49] LABS: CALCIUM OXALATE CRYSTALS,URINE FEW /hpf; SQUAMOUS EPITHELIAL CELL URINE 0-5 /hpf (0-5)
[2017-09-14 22:02] LABS: CHLORIDE 106 MEQ/L (98-107); SODIUM (NA) 138 MEQ/L (136-145)
[2017-09-14 22:05] LABS: CALCIUM 8.4 MG/DL (8.5-10.1)
[2017-09-14 22:06] LABS: ALBUMIN 3.5 GM/DL (3.4-5.0); BICARBONATE 27.6 MEQ/L (21.0-32.0); BLOOD UREA NITROGEN 12 MG/DL (7-18); GLUCOSE,RANDOM 119 MG/DL (74-106)
--- NOTE | 2017-09-14 22:07 | RADRPT ---
EXAM DATE/TIME: 09/14/2017 21:45 [facility] COMPARISON: No previous studies available for comparison. INDICATIONS : Low abdomen pain. IV CONTRAST: 95 cc Omnipaque 350 (iohexol) IV ORAL CONTRAST: No oral contrast ingested. RADIATION DOSE: 22.03 CTDIvol (mGy) MEDICAL HISTORY : Diverticulitis. Renal calculi. SURGICAL HISTORY : None. ENCOUNTER: Initial ACUITY: 1 day PAIN SCALE: 6/10 LOCATION: Bilateral ;low abdomen TECHNIQUE: Volumetric scanning of the abdomen and pelvis was performed. Using automated exposure control and ad justment of the mA and/or kV according to patient size, radiation dose was kept as low as reasonably achievable to obtain optimal diagnostic quality images. DICOM format image data is available electro nically for review and comparison. FINDINGS: Lung bases are clear. Mild fatty liver. Spleen, adrenals, right kidney and pancreas unremarkable. 9 m m x 5 mm calculus in the proximal left ureter with mild left hydronephrosis and obstructive uropathy. No bowel obstruction. No free air or free fluid. No adenopathy. CONCLUSION: There is a left-sided obstructive uropathy with a 9 mm x 5 mm calculus in the proximal left ureter an d mild left hydronephrosis. Oj Grace MD on September 14, 2017 at 22:00 Board Certified Radiologist. This report was verified electronically.
[2017-09-14 22:09] LABS: ALT (GPT) 30 U/L (12-78); AST (GOT) 14 U/L (15-37); CREATININE 0.76 MG/DL (0.60-1.30); GLOMERULAR FILTRATION RATE 115 ML/MIN (>89)
[2017-09-14 22:10] LABS: TOTAL BILIRUBIN ADULT 0.4 MG/DL (0.2-1.0); TOTAL PROTEIN 6.9 GM/DL (6.4-8.2)
[2017-09-14 22:13] LABS: ALKALINE PHOSPHATASE 72 U/L (45-117)
[2017-09-14 22:28] VITALS: BP 155/89; PULSE 89; RESP 16; O2SAT 96
[2017-09-14] MEDS ORDERED: ONDANSETRON HCL 4 MG/2 ML VIAL IV PUSH ONE (22:45)
[2017-09-14] MEDS ORDERED: oxyCODONE/ACETAMINOPHEN 5 MG/325 MG TAB PO ONE (22:45)
[2017-09-14] MEDS ORDERED: KETOROLAC TROMETHAMINE 30 MG/ML (IVP) VIAL IV PUSH ONE (22:45)
[2017-09-14] MEDS ORDERED: NALOXONE HCL 0.4 MG/ML AMP IV PUSH PRN (23:45)
--- NOTE | 2017-09-14 23:46 | PD ---
HPI Chief Complaint: GI Complaint Time Seen by Provider: 20:52 Travel History International Travel<30 days: No Contact w/Intl Traveler<30days: No Traveled to known affect area: No History of Present Illness HPI Patient is a 36 year old male who comes in complaining of severe lower abdominal pain and flank pain. He says it started this morning and has been getting worse. He did not take anything for the pain. He says it feels like when he was here last year for pain and was told he had diverticulosis. He says he has had some nausea, but no vomiting. He denies fever or chills. He says he feels like he has had decreased urinary output. Severity is moderate. PFSH Past Medical History Autoimmune Disease: No Depression: Yes (SITUATIONAL) Cancer: No Cardiovascular Problems: No Diminished Hearing: No Diverticulitis: Yes Endocrine: No Genitourinary: Yes Immune Disorder: No Kidney Stones: Yes Musculoskeletal: Yes Neurologic: No Psychiatric: No Reproductive: No Respiratory: Yes Immunizations Current: Yes Influenza Vaccination: Yes Past Surgical History Genitourinary Surgery: Yes (LITHOTRIPSY: RIGHT KIDNEY) Other Surgery: No Social History Alcohol Use: Yes ("RARELY") Tobacco Use: No (QUIT AGE 25) Substance Use: No Allergies-Medications (Allergen,Severity, Reaction): Coded Allergies: No Known Allergies (Unverified Allergy, Unknown, 09/14/17) Reported Meds & Prescriptions Reported Meds & Active Scripts Active No Active Prescriptions or Reported Medications Review of Systems Except as stated in HPI: all other systems reviewed are Neg General / Constitutional: No: Fever, Chills HENT: No: Headaches, Lightheadedness Cardiovascular: No: Chest Pain or Discomfort Respiratory: No: Shortness of Breath Gastrointestinal: Positive: Nausea, Abdominal Pain Genitourinary: Positive: Flank Pain Skin: No Rash, No Change in Pigmentation Neurologic: No: Weakness, Dizziness Physical Exam Narrative GENERAL: Awake and alert, no acute distress. SKIN: Focused skin assessment warm/dry. No wounds or signs of infection. HEAD: Atraumatic. Normocephalic. EYES: Pupils equal and round. No scleral icterus. ENT: Mucous membranes pink and moist. NECK: Trachea midline. No JVD. CARDIOVASCULAR: Regular rate and rhythm. No murmur appreciated. RESPIRATORY: No accessory muscle use. Clear to auscultation. Breath sounds equal bilaterally. GASTROINTESTINAL: Abdomen soft, nondistended. Mild tenderness to palpation across the lower abdomen. No rebound or guarding. MUSCULOSKELETAL: No obvious deformities. No clubbing. No cyanosis. No edema. NEUROLOGICAL: Awake and alert. No obvious cranial nerve deficits. Motor grossly within normal limits. Normal speech. PSYCHIATRIC: Appropriate mood and affect; insight and judgment normal. Data Data Last Documented VS Vital Signs Date Time Temp Pulse Resp B/P (MAP) Pulse Ox O2 Delivery O2 Flow Rate FiO2 09/14/17 22:28 89 16 155/89 (111) 96 Room Air 09/14/17 20:37 98.3 Orders Orders Complete Blood Count With Diff (09/14/17 20:57) Comprehensive Metabolic Panel (09/14/17 20:57) Lipase (09/14/17 20:57) Prothrombin Time / Inr (Pt) (09/14/17 20:57) Act Partial Throm Time (Ptt) (09/14/17 20:57) Urinalysis - C+S If Indicated (09/14/17 20:57) Ct Abd/Pel W Iv Contrast(Rout) (09/14/17 20:57) Iv Access Insert/Monitor (09/14/17 20:57) Ecg Monitoring (09/14/17 20:57) Oximetry (09/14/17 20:57) Morphine Inj (Morphine Inj) (09/14/17 21:00) Ondansetron Inj (Zofran Inj) (09/14/17 21:00) Sodium Chlor 0.9% 1000 Ml Inj (Ns 1000 M (09/14/17 20:57) Sodium Chloride 0.9% Flush (Ns Flush) (09/14/17 21:00) Ketorolac Inj (Toradol Inj) (09/14/17 21:00) Iohexol 350 Inj (Omnipaque 350 Inj) (09/14/17 20:34) Ketorolac Inj (Toradol Inj) (09/14/17 22:45) Ondansetron Inj (Zofran Inj) (09/14/17 22:45) Oxycodone-Acetamin 5-325 Mg (Percocet (09/14/17 22:45) Morphine Inj (Morphine Inj) (09/14/17 23:30) Admit To Inpatient (09/14/17 ) Vital Signs (Adult) Q4H (09/14/17 23:33) Activity Oob With Assistance (09/14/17 23:33) Manager Of Software Development / Telemetry .CONTINUOUS (09/14/17 23:33) Diet Npo (09/15/17 Breakfast) Sodium Chlor 0.9% 1000 Ml Inj (Ns 1000 M (09/14/17 23:33) Sodium Chloride 0.9% Flush (Ns Flush) (09/14/17 23:45) Sodium Chloride 0.9% Flush (Ns Flush) (09/15/17 09:00) Ondansetron Inj (Zofran Inj) (09/14/17 23:45) Basic Metabolic Panel (Bmp) (09/15/17 06:00) Complete Blood Count With Diff (09/15/17 06:00) Case Management Consult (09/14/17 23:33) Naloxone Inj (Narcan Inj) (09/14/17 23:45) Inpatient Certification (09/14/17 ) Morphine Inj (Morphine Inj) (09/14/17 23:45) Consult Urology (09/14/17 ) Admit Order (Ed Use Only) (09/14/17 ) Labs Laboratory Tests Test 09/14/17 21:00 09/14/17 21:15 09/14/17 21:43 White Blood Count 9.9 TH/MM3 Red Blood Count 4.86 MIL/MM3 Hemoglobin 13.8 GM/DL Hematocrit 41.6 % Mean Corpuscular Volume 85.5 FL Mean Corpuscular Hemoglobin 28.3 PG Mean Corpuscular Hemoglobin Concent 33.1 % Red Cell Distribution Width 12.4 % Platelet Count 295 TH/MM3 Mean Platelet Volume 8.1 FL Neutrophils (%) (Auto) 67.0 % Lymphocytes (%) (Auto) 24.9 % Monocytes (%) (Auto) 4.2 % Eosinophils (%) (Auto) 2.8 % Basophils (%) (Auto) 1.1 % Neutrophils # (Auto) 6.6 TH/MM3 Lymphocytes # (Auto) 2.5 TH/MM3 Monocytes # (Auto) 0.4 TH/MM3 Eosinophils # (Auto) 0.3 TH/MM3 Basophils # (Auto) 0.1 TH/MM3 CBC Comment DIFF FINAL Differential Comment Prothrombin Time 10.4 SEC Prothromb Time International Ratio 1.0 RATIO Activated Partial Thromboplast Time 28.1 SEC Urine Color BROWN Urine Turbidity CLOUDY Urine pH 6.0 Urine Specific [place] 1.032 Urine Protein TRACE mg/dL Urine Glucose (UA) NEG mg/dL Urine Ketones NEG mg/dL Urine Occult Blood LARGE Urine Nitrite NEG Urine Bilirubin NEG Urine Leukocyte Esterase NEG Urine RBC 50-99 /hpf Urine WBC 3-5 /hpf Urine Squamous Epithelial Cells 0-5 /hpf Urine Calcium Oxalate Crystals FEW /hpf Microscopic Urinalysis Comment CULT NOT INDICATED Blood Urea Nitrogen 12 MG/DL Creatinine 0.76 MG/DL Random Glucose 119 MG/DL Total Protein 6.9 GM/DL Albumin 3.5 GM/DL Calcium Level 8.4 MG/DL Alkaline Phosphatase 72 U/L Aspartate Amino Transf (AST/SGOT) 14 U/L Alanine Aminotransferase (ALT/SGPT) 30 U/L Total Bilirubin 0.4 MG/DL Sodium Level 138 MEQ/L Potassium Level 3.7 MEQ/L Chloride Level 106 MEQ/L Carbon Dioxide Level 27.6 MEQ/L Anion Gap 4 MEQ/L Estimat Glomerular Filtration Rate 115 ML/MIN Lipase 120 U/L [facility] Medical Decision Making Medical Screen Exam Complete: Yes Emergency Medical Condition: Yes Medical Record Reviewed: Yes Differential Diagnosis Renal stone versus UTI versus diverticulitis versus colitis Narrative Course Patient is a 36-year-old male comes in complaining of severe abdominal pain. Exam shows mild tenderness across the lower abdomen. IV established, labs sent. Labs show creatinine is within normal limits. Urinalysis is positive for blood, no signs of infection. Patient given IV fluids, Toradol, morphine, Zofran. CT abdomen pelvis shows a 9 x 5 mm obstructing renal stone on the left. Last 24 hours Impressions Abdomen/Pelvis CT 09/14/172056 Signed Impressions: Service Date/Time: August 21:45 - CONCLUSION: There is a left-sided obstructive uropathy with a 9 mm x 5 mm calculus in the proximal left ureter and mild left hydronephrosis. Oj Grace MD Patient continues to have pain despite 2 doses of morphine and Percocet as well as Toradol. I spoke with Dr. Fishman who would like the patient transferred to the main hospital for likely procedure. Patient admitted to medicine for further management. Diagnosis Primary Impression: Hydronephrosis with renal calculous obstruction Admitting Information Admitting Physician Requests: Admit Scripts No Active Prescriptions or Reported Meds Shayy Chang MD Sep 14, 2017 23:46
[2017-09-15] MEDS: SODIUM CHLOR 0.9% 1000 ML INJ 1,000 ML IV SCH ×4 (00:23→19:27)
[2017-09-15 02:56] VITALS: BP 118/80; PULSE 83; RESP 16; TEMP 97.7; O2SAT 97
[2017-09-15] MEDS: MORPHINE SULFATE 2 MG/ML INJ IV PUSH PRN ×2 (03:35→07:44)
[2017-09-15 05:45] LABS: AUTOMATED NEUTROPHIL # 4.3 TH/MM3 (1.8-7.7); BASOPHIL # 0.1 TH/MM3 (0-0.2); BASOPHIL % 1.8 % (0.0-2.0); EOSINOPHIL # 0.3 TH/MM3 (0-0.4); EOSINOPHIL % 3.7 % (0.0-4.0); HEMATOCRIT 38.1 % (39.0-51.0); HEMOGLOBIN 13.1 GM/DL (13.0-17.0); LYMPH % 30.3 % (9.0-44.0); LYMPHOCYTE # 2.2 TH/MM3 (1.0-4.8); MEAN CELL VOLUME 84.7 FL (80.0-100.0); MEAN CORPUSCULAR HEMOGLOBIN 29.1 PG (27.0-34.0); MEAN CORPUSCULAR HGB CONC 34.4 % (32.0-36.0); MEAN PLATELET VOLUME 8.1 FL (7.0-11.0); MONO % 5.7 % (0.0-8.0); MONOCYTE # 0.4 TH/MM3 (0-0.9); NEUT % 58.5 % (16.0-70.0); PLATELET COUNT 261 TH/MM3 (150-450); RED CELL DISTRIBUTION WIDTH 12.4 % (11.6-17.2); WHITE BLOOD COUNT 7.3 TH/MM3 (4.0-11.0)
[2017-09-15 05:56] LABS: BICARBONATE 25.6 MEQ/L (21.0-32.0); CALCIUM 8.2 MG/DL (8.5-10.1)
[2017-09-15 06:00] LABS: CREATININE 0.71 MG/DL (0.60-1.30)
[2017-09-15] MEDS: SODIUM CHLORIDE 0.9% FLUSH 10 ML FLUSH IV FLUSH SCH ×2 (07:44→19:27)
[2017-09-15] MEDS: ONDANSETRON HCL 4 MG/2 ML VIAL IVP PRN ×2 (07:52→20:24)
[2017-09-15 08:32] VITALS: BP 136/85; PULSE 77; RESP 20; TEMP 98.3; O2SAT 96
--- NOTE | 2017-09-15 09:20 | HHI.HP ---
[facility] Service [facility] Primary [facility]ician No Primary Care Physician Admission Diagnosis Obstructing ureteral stone Diagnoses: Chief Complaint: Severe lower abdominal pain, flank pain. Travel History International Travel<30 Days: No Contact w/Intl Traveler <30 Da: No Traveled to Known Affected Are: No History of Present Illness Mr. Hdez is a 36-year-old male with previous history of kidney stone who presented to the emergency department on 09/14/2017 due to lower abdominal pain, flank pain. Patient is started on the day of admission in the morning and continued to get worse. He initially thought that his pain was related to diverticulosis. He reported nausea but no vomiting. No fever or chills. On arrival CT abdomen pelvis shows obstructive uropathy with a 9 mm x 5 mm calculus in the proximal left ureter and also mild left hydronephrosis. Review of Systems Except as stated in HPI: all other systems reviewed are Neg Past Family Social History Past Medical History Kidney stone Depression Diverticulosis Past Surgical History Lithotripsy right kidney Reported Medications Does not take any medication on a regular basis Allergies: Coded Allergies: No Known Allergies (Unverified Allergy, Unknown, 09/14/17) Family History No Family history of Alzheimer's or Parkinson's. No family history of coronary artery disease. Social History He drinks rarely, quit smoking at the age of 25. Denies any illicit drug use. Physical Exam Vital Signs Vital Signs Date Time Temp Pulse Resp B/P (MAP) Pulse Ox O2 Delivery O2 Flow Rate FiO2 09/15/17 08:32 98.3 77 20 136/85 (102) 96 09/15/17 06:23 09/15/17 02:56 97.7 83 16 118/80 (93) 97 Room Air 09/14/17 22:28 89 16 155/89 (111) 96 Room Air 09/14/17 21:17 92 16 95 Room Air 09/14/17 20:37 98.3 101 18 159/99 (119) 97 Physical Exam GENERAL: This is a well-nourished, well-developed patient, in no apparent distress. SKIN: No rashes, ecchymoses or lesions. Warm and dry. HEAD: Atraumatic. Normocephalic. No temporal or scalp tenderness. EYES: Pupils equal round and reactive. No injection or drainage. ENT: Nose without bleeding, purulent drainage or septal hematoma. Airway patent. NECK: Trachea midline. No lymphadenopathy. Supple, nontender, no meningeal signs. CARDIOVASCULAR: Regular rate and rhythm without murmurs, gallops, or rubs. No JVD. RESPIRATORY: Clear to auscultation. Breath sounds equal bilaterally. No wheezes , rales, or rhonchi. GASTROINTESTINAL: Abdomen soft, non-tender, nondistended. No guarding. No CVA tenderness. MUSCULOSKELETAL: Extremities without clubbing, cyanosis, or edema. NEUROLOGICAL: Awake and alert. Cranial nerves II through XII intact. No focal neurological deficits. Normal speech. Laboratory Laboratory Tests Test 09/14/17 21:00 09/14/17 21:15 09/14/17 21:43 09/15/17 05:35 White Blood Count 9.9 7.3 Red Blood Count 4.86 4.50 Hemoglobin 13.8 13.1 Hematocrit 41.6 38.1 Mean Corpuscular Volume 85.5 84.7 Mean Corpuscular Hemoglobin 28.3 29.1 Mean Corpuscular Hemoglobin Concent 33.1 34.4 Red Cell Distribution Width 12.4 12.4 Platelet Count 295 261 Mean Platelet Volume 8.1 8.1 Neutrophils (%) (Auto) 67.0 58.5 Lymphocytes (%) (Auto) 24.9 30.3 Monocytes (%) (Auto) 4.2 5.7 Eosinophils (%) (Auto) 2.8 3.7 Basophils (%) (Auto) 1.1 1.8 Neutrophils # (Auto) 6.6 4.3 Lymphocytes # (Auto) 2.5 2.2 Monocytes # (Auto) 0.4 0.4 Eosinophils # (Auto) 0.3 0.3 Basophils # (Auto) 0.1 0.1 CBC Comment DIFF FINAL DIFF FINAL Differential Comment Prothrombin Time 10.4 Prothromb Time International Ratio 1.0 Activated Partial Thromboplast Time 28.1 Urine Color BROWN Urine Turbidity CLOUDY Urine pH 6.0 Urine Specific [place] 1.032 Urine Protein TRACE Urine Glucose (UA) NEG Urine Ketones NEG Urine Occult Blood LARGE Urine Nitrite NEG Urine Bilirubin NEG Urine Leukocyte Esterase NEG Urine RBC 50-99 Urine WBC 3-5 Urine Squamous Epithelial Cells 0-5 Urine Calcium Oxalate Crystals FEW Microscopic Urinalysis Comment CULT NOT INDICATED Blood Urea Nitrogen 12 11 Creatinine 0.76 0.71 Random Glucose 119 104 Total Protein 6.9 Albumin 3.5 Calcium Level 8.4 8.2 Alkaline Phosphatase 72 Aspartate Amino Transf (AST/SGOT) 14 Alanine Aminotransferase (ALT/SGPT) 30 Total Bilirubin 0.4 Sodium Level 138 138 Potassium Level 3.7 4.1 Chloride Level 106 106 Carbon Dioxide Level 27.6 25.6 Anion Gap 4 6 Estimat Glomerular Filtration Rate 115 124 Lipase 120 Result Diagram: 09/15/17 0535 09/15/17534 Imaging Last Impressions Abdomen/Pelvis CT 09/14/172056 Signed Impressions: Service Date/Time: August 21:45 - CONCLUSION: There is a left-sided obstructive uropathy with a 9 mm x 5 mm calculus in the proximal left ureter and mild left hydronephrosis. Oj Grace MD Caprini VTE Risk Assessment Caprini VTE Risk Assessment: No/Low Risk (score <= 1) Caprini Risk Assessment Model Point Value = 1 Point Value = 2 Point Value = 3 Point Value = 5 Age 41-60 Minor surgery BMI > 25 kg/m2 Swollen legs Varicose veins or History of unexplained or recurrent spontaneous Oral contraceptives or hormone replacement Sepsis (< 1 month) Serious lung disease, including pneumonia (< 1 month) Abnormal pulmonary function Acute myocardial infarction Congestive heart failure (< 1 month) History of inflammatory bowel disease Medical patient at bed rest Age 61-74 Arthroscopic surgery Major open surgery (> 45 min) Laparoscopic surgery (> 45 min) Malignancy Confined to bed (> 72 hours) Immobilizing plaster cast Central venous access Age >= 75 History of VTE Family history of VTE Factor V Leiden Prothrombin [id number] Lupus anticoagulant Anticardiolipin antibodies Elevated serum homocysteine Heparin-induced thrombocytopenia Other congenital or acquired thrombophilia Stroke (< 1 month) Elective arthroplasty Hip, pelvis, or leg fracture Acute spinal cord injury (< 1 month) Prophylaxis Regimen Total Risk Factor Score Risk Level Prophylaxis Regimen 0-1 Low Early ambulation 2 Moderate Order ONE of the following: *Sequential Compression Device (SCD) *Heparin 5000 units SQ BID 3-4 Higher Order ONE of the following medications: *Heparin 5000 units SQ TID *Enoxaparin/Lovenox 40 mg SQ daily (WT < 150 kg, CrCl > 30 mL/min) *Enoxaparin/Lovenox 30 mg SQ daily (WT < 150 kg, CrCl > 10-29 mL/min) *Enoxaparin/Lovenox 30 mg SQ BID (WT < 150 kg, CrCl > 30 mL/min) AND/OR *Sequential Compression Device (SCD) 5 or more Highest Order ONE of the following medications: *Heparin 5000 units SQ TID (Preferred with Epidurals) *Enoxaparin/Lovenox 40 mg SQ daily (WT < 150 kg, CrCl > 30 mL/min) *Enoxaparin/Lovenox 30 mg SQ daily (WT < 150 kg, CrCl > 10-29 mL/min) *Enoxaparin/Lovenox 30 mg SQ BID (WT < 150 kg, CrCl > 30 mL/min) AND *Sequential Compression Device (SCD) Assessment and Plan Problem List: (1) Left ureteral calculus ICD Code: N20.1 - Calculus of ureter (2) Hydronephrosis with renal calculous obstruction ICD Code: N13.2 - Hydronephrosis with renal and ureteral calculous obstruction Status: Acute Assessment and Plan Mr. Hdez is a 36 year old male with previous history of right kidney stone who presented to the emergency department on 09/14/2017 due to worsening abdominal pain, flank pain. Emergency department workup indicated left ureter stone with mild left hydronephrosis. Urology was consulted. - Left ureteral calculus - Left-sided hydronephrosis - Urology consulted. Patient will likely undergo urological intervention today. - Continue acetaminophen for headache, fever, pain 1-4 and Percocet 5/325 Q6hrs PRN for pain 5-10. - Morphine 4 mg every 3 hours when necessary for breakthrough. - Continue IV fluid with normal saline at 100 cc per hour. Full code. Ambulation. Discharge plan: Discharge upon Urology clearance. Physician Certification 2 Midnight Certification Type: Admission for Inpatient Services Order for Inpatient Services The services are ordered in accordance with Medicare regulations or non- Medicare payer requirements, as applicable. In the case of services not specified as inpatient-only, they are appropriately provided as inpatient services in accordance with the 2-midnight benchmark. Estimated LOS (days): 2 days is the estimated time the patient will need to remain in the hospital, assuming treatment plan goals are met and no additional complications. Post-Hospital Plan: Dung Stephens DO Sep 15, 2017 9:20 am
[2017-09-15] MEDS ORDERED: ACETAMINOPHEN 325 MG TAB PO PRN (10:45)
[2017-09-15] MEDS: MORPHINE SULFATE 4 MG/ML INJ IV PUSH PRN ×4 (11:13→21:17)
[2017-09-15] MEDS ORDERED: LIDOCAINE HCL 1% PF 5 ML SYRINGE OTHER ONE (12:00)
[2017-09-15] MEDS ORDERED: KETOROLAC TROMETHAMINE 30 MG/ML (IVP) VIAL IV PUSH ONE (12:00)
[2017-09-15] MEDS ORDERED: DEXAMETHASONE SOD PHOS 4 MG/ML VIAL IV ONE (12:00)
[2017-09-15] MEDS ORDERED: ONDANSETRON HCL 4 MG/2 ML VIAL IV ONE (12:00)
[2017-09-15] MEDS ORDERED: ceFAZolin INJ 1,000 MG VIAL IV ONE ×2 (12:00→13:30)
[2017-09-15] MEDS ORDERED: PROPOFOL 200 MG/20 ML AMP IV ONE (12:00)
--- NOTE | 2017-09-15 13:18 | PD.CONS ---
HPI Service Urology Consult Requested By Dr. Mendiola Reason for Consult Obstructing left ureteral calculus Primary Care Physician No Primary Care Physician Diagnosis: (1) Left ureteral calculus ICD Code: N20.1 - Calculus of ureter (2) Hydronephrosis with renal calculous obstruction ICD Code: N13.2 - Hydronephrosis with renal and ureteral calculous obstruction History of Present Illness 36-year-old gentleman with history nephrolithiasis who presented to emergency room with acute onset left flank and abdominal pain. Workup included a CT scan stone protocol that demonstrated a 9 mm left proximal ureteral calculus causing mild left hydronephrosis. Patient was admitted for pain management and a urology consult placed. Review of Systems Constitutional: DENIES: Fever, Night Sweats Cardiovascular: DENIES: Chest pain Gastrointestinal: COMPLAINS OF: Abdominal pain (Left abdomen), Nausea Genitourinary: DENIES: Hematuria Musculoskeletal: COMPLAINS OF: Back pain (Left flank) Except as stated in HPI: all other systems reviewed are Neg Past Family Social History Past Medical History Nephrolithiasis Depression Diverticulosis Past Surgical History Status post right renal extracorporeal shockwave lithotripsy Reported Medications Refer to EMR Allergies: Coded Allergies: No Known Allergies (Unverified Allergy, Unknown, 09/14/17) Active Ordered Medications Refer to EMR Family History Reviewed and noncontributory Social History Former smoker who quit at the age of 25 Drinks alcoholic beverages on occasion Denies history of illicit drug use Physical Exam Vital Signs Date Time Temp Pulse Resp B/P (MAP) Pulse Ox O2 Delivery O2 Flow Rate FiO2 09/15/17 08:32 98.3 77 20 136/85 (102) 96 09/15/17 06:23 09/15/17 02:56 97.7 83 16 118/80 (93) 97 Room Air 09/14/17 22:28 89 16 155/89 (111) 96 Room Air 09/14/17 21:17 92 16 95 Room Air 09/14/17 20:37 98.3 101 18 159/99 (119) 97 Physical Exam GENERAL: This is a well-nourished, well-developed patient, in no apparent distress. SKIN: No rashes, ecchymoses or lesions. Cool and dry. HEAD: Atraumatic. Normocephalic. No temporal or scalp tenderness. EYES: Pupils equal round and reactive. Extraocular motions intact. No scleral icterus. No injection or drainage. ENT: Nose without bleeding, purulent drainage or septal hematoma. Throat without erythema, tonsillar hypertrophy or exudate. Uvula midline. Airway patent. NECK: Trachea midline. No JVD or lymphadenopathy. Supple, nontender, no meningeal signs. CARDIOVASCULAR: Regular rate and rhythm without murmurs, gallops, or rubs. RESPIRATORY: Clear to auscultation. Breath sounds equal bilaterally. No wheezes , rales, or rhonchi. GASTROINTESTINAL: Abdomen soft, non-tender, nondistended. No hepato-splenomegaly , or palpable masses. No guarding. GENITOURINARY: No CVA tenderness MUSCULOSKELETAL: Extremities without clubbing, cyanosis, or edema. No joint tenderness, effusion, or edema noted. No calf tenderness. Negative Homans sign bilaterally. NEUROLOGICAL: Awake and alert. Cranial nerves II through XII intact. Motor and sensory grossly within normal limits. Five out of 5 muscle strength in all muscle groups. Normal speech. Lab results reviewed: Yes Laboratory Tests Test 09/14/17 21:00 09/14/17 21:15 09/14/17 21:43 09/15/17 05:35 White Blood Count 9.9 7.3 Red Blood Count 4.86 4.50 Hemoglobin 13.8 13.1 Hematocrit 41.6 38.1 Mean Corpuscular Volume 85.5 84.7 Mean Corpuscular Hemoglobin 28.3 29.1 Mean Corpuscular Hemoglobin Concent 33.1 34.4 Red Cell Distribution Width 12.4 12.4 Platelet Count 295 261 Mean Platelet Volume 8.1 8.1 Neutrophils (%) (Auto) 67.0 58.5 Lymphocytes (%) (Auto) 24.9 30.3 Monocytes (%) (Auto) 4.2 5.7 Eosinophils (%) (Auto) 2.8 3.7 Basophils (%) (Auto) 1.1 1.8 Neutrophils # (Auto) 6.6 4.3 Lymphocytes # (Auto) 2.5 2.2 Monocytes # (Auto) 0.4 0.4 Eosinophils # (Auto) 0.3 0.3 Basophils # (Auto) 0.1 0.1 CBC Comment DIFF FINAL DIFF FINAL Differential Comment Prothrombin Time 10.4 Prothromb Time International Ratio 1.0 Activated Partial Thromboplast Time 28.1 Urine Color BROWN Urine Turbidity CLOUDY Urine pH 6.0 Urine Specific [place] 1.032 Urine Protein TRACE Urine Glucose (UA) NEG Urine Ketones NEG Urine Occult Blood LARGE Urine Nitrite NEG Urine Bilirubin NEG Urine Leukocyte Esterase NEG Urine RBC 50-99 Urine WBC 3-5 Urine Squamous Epithelial Cells 0-5 Urine Calcium Oxalate Crystals FEW Microscopic Urinalysis Comment CULT NOT INDICATED Blood Urea Nitrogen 12 11 Creatinine 0.76 0.71 Random Glucose 119 104 Total Protein 6.9 Albumin 3.5 Calcium Level 8.4 8.2 Alkaline Phosphatase 72 Aspartate Amino Transf (AST/SGOT) 14 Alanine Aminotransferase (ALT/SGPT) 30 Total Bilirubin 0.4 Sodium Level 138 138 Potassium Level 3.7 4.1 Chloride Level 106 106 Carbon Dioxide Level 27.6 25.6 Anion Gap 4 6 Estimat Glomerular Filtration Rate 115 124 Lipase 120 Result Diagram: 09/15/17 0535 09/15/17 0535 Personally reviewed images: Yes Imaging Last Impressions Abdomen/Pelvis CT 09/14/172056 Signed Impressions: Service Date/Time: August 21:45 - CONCLUSION: There is a left-sided obstructive uropathy with a 9 mm x 5 mm calculus in the proximal left ureter and mild left hydronephrosis. Oj Grace MD Assessment and Plan Assessment and Plan Urologic impression: Obstructing 9 mm left proximal ureteral calculus. Plan: 1. Keep patient n.p.o. 2. Proceed with cystoscopy, left retrograde pyelogram a left ureteral stent placement today 3. Eventual outpatient shockwave lithotripsy of the calculus Jose Alberto Fishman MD Sep 15, 2017 13:18
--- NOTE | 2017-09-15 14:03 | PD.OP ---
Operative Report Date of Surgery: Sep 15, 2017 Preoperative Diagnosis: (1) Left ureteral calculus Postoperative Diagnosis: (1) Left ureteral calculus Procedure: Cystoscopy, left retrograde pyelogram, left ureteral stone manipulation and left ureteral stent placement Surgeon: Jose Alberto Fishman Clerical Specialist(s): General Operation and Findings: Indication for procedures: Case of a pleasant 36-year-old gentleman with an obstructing 9 mm left proximal ureteral stone who presents for cystoscopy and left stent placement. Operative procedure in detail: Patient was brought to the operating room suite placed supine on the OR table. He was then placed under general anesthesia. He was then repositioned in the dorsal lithotomy position and prepped and draped in normal sterile fashion. After appropriate timeout was undertaken to proceed with cystoscopic evaluation utilizing the rigid cystoscope with the 20 [place] sheath and 30 lens. The urethra was patent without stricture formation and the prostatic urethra was nonobstructing. For the past of the cystoscope within urinary bladder revealed both right and left ureteral orifices to be in correct anatomic position. There was clear drainage from the right side and no drainage noted on the left. I then proceeded with performing a left retrograde pyelogram study utilizing a 5 [place] open-ended catheter. Once the system was highlighted a sensor 0.035 wire was utilized and advanced up the left ureter. The wire was utilized to gently manipulate the stone in a cephalad direction. The open-ended catheter was then exchanged for a long-term 6 [place] 26 cm [place] stent. The stent was placed under both cystoscopic and fluoroscopic guidance without difficulty. Once the stent was in proper position the trailing string was removed. The bladder was drained of all irrigant fluid and the cystoscope withdrawn. The patient tolerated the procedures without complications and was transferred to the PACU in satisfactory condition. It is anticipated that the patient will be discharged home later today and arrangements made for outpatient shockwave lithotripsy. Jose Alberto Fismhan MD Sep 15, 2017 14:03
[2017-09-15] MEDS ORDERED: CEPH-459 PO (14:04)
[2017-09-15] MEDS ORDERED: PERC5TAB12 PO (14:04)
[2017-09-15] MEDS ORDERED: DO NOT ADM ANY ANTICOAGULANT DRUGS PRN (14:11)
[2017-09-15] MEDS ORDERED: BELLADONNA ALKALOIDS/OPIUM 60 MG SUPP RECTAL ONE (14:34)
[2017-09-15] MEDS ORDERED: CHLORHEXIDINE GLUCONATE 2 % 1 PACK (2 CLOTHS) TOPICAL PRN (15:00)
[2017-09-15] MEDS ORDERED: POVIDONE IODINE 5% (ANTISEPSIS KIT) 4 APPLICATIONS EACH NARE PRN (15:00)
[2017-09-15] MEDS ORDERED: METOPROLOL TARTRATE 25 MG TAB PO PRN (15:00)
[2017-09-15] MEDS ORDERED: SODIUM CHLORID 0.9% 500 ML IV PRN (15:00)
[2017-09-15] MEDS ORDERED: LACTATED RINGER'S 1000 ML IV PRN (15:00)
[2017-09-15] MEDS: oxyCODONE/ACETAMINOPHEN 5 MG/325 MG TAB PO PRN ×2 (15:46→20:24)
[2017-09-15 16:00] VITALS: BP 130/84; PULSE 92; RESP 18; TEMP 96.8; O2SAT 94
[2017-09-15 20:00] VITALS: BP 143/83; PULSE 104; RESP 18; TEMP 97.7; O2SAT 94
[2017-09-16] VITALS: BP 107/58; PULSE 108; RESP 20; TEMP 96.7; O2SAT 95
[2017-09-16] MEDS: MORPHINE SULFATE 4 MG/ML INJ IV PUSH PRN (01:53)
[2017-09-16] MEDS: oxyCODONE/ACETAMINOPHEN 5 MG/325 MG TAB PO PRN ×2 (04:11→09:17)
[2017-09-16 08:00] VITALS: BP 126/67; PULSE 84; RESP 18; TEMP 97.4; O2SAT 96
[2017-09-16] MEDS: SODIUM CHLORIDE 0.9% FLUSH 10 ML FLUSH IV FLUSH SCH (09:00)
--- NOTE | 2017-09-16 10:24 | HHI.PR ---
Subjective Remarks Patient reports is feeling well except for mild discomfort on his left flank upon urination. No hematuria. Objective Vitals Vital Signs Date Time Temp Pulse Resp B/P (MAP) Pulse Ox O2 Delivery O2 Flow Rate FiO2 09/16/17 08:00 97.4 84 18 126/67 (86) 96 09/16/17 00:00 96.7 108 20 107/58 (74) 95 09/15/17 20:00 97.7 104 18 143/83 (103) 94 09/15/17 16:00 96.8 92 18 130/84 (99) 94 09/15/17 15:03 91 19 137/73 (94) 94 Room Air 09/15/17 14:45 96 19 127/69 (88) 93 Room Air 09/15/17 14:30 96 19 129/61 (83) 92 Nasal Cannula 2 09/15/17 14:15 94 19 133/60 (84) 94 Nasal Cannula 2 09/15/17 14:11 97.9 96 19 131/56 (81) 92 Nasal Cannula 2 I/O 09/15/17 09/15/17 09/15/17 09/16/17 09/16/17 09/16/17 07:00 15:00 23:00 07:00 15:00 23:00 Intake Total 400 ml 580 ml 480 ml Output Total 0 ml Balance 400 ml 580 ml 480 ml Intake Oral 580 ml 480 ml Other 400 ml Estimated Blood Loss 0 ml # Voids 2 2 3 # Bowel Movements 0 0 Result Diagram: 09/15/17 0535 09/15/17 0535 Imaging Last Impressions Abdomen/Pelvis CT 09/14/172056 Signed Impressions: Service Date/Time: August 21:45 - CONCLUSION: There is a left-sided obstructive uropathy with a 9 mm x 5 mm calculus in the proximal left ureter and mild left hydronephrosis. Oj Grace MD Objective Remarks GENERAL: This is a well-nourished, well-developed patient, in no apparent distress. CARDIOVASCULAR: Normal rate and regular rhythm without murmurs, gallops, or rubs. RESPIRATORY: Good respiratory efforts. Breath sounds equal and clear to auscultation bilaterally. GASTROINTESTINAL: Abdomen soft, non-tender, non-distended. Normal active bowel sounds MUSCULOSKELETAL: Extremities without cyanosis, or edema. NEURO: Alert & Oriented x4 to person, place, time, situation. Moves all ext x4 PSYCH: Appropriate mood and affect. A/P Problem List: (1) Left ureteral calculus ICD Code: N20.1 - Calculus of ureter (2) Hydronephrosis with renal calculous obstruction ICD Code: N13.2 - Hydronephrosis with renal and ureteral calculous obstruction Status: Acute Assessment and Plan 36 year old male with previous history of right kidney stone who presented to the emergency department on 09/14/2017 due to worsening abdominal pain, flank pain. Emergency department workup indicated left ureter stone with mild left hydronephrosis. Urology was consulted. Patient underwent Cystoscopy, left retrograde pyelogram, left ureteral stone manipulation and left ureteral stent placement. He is discharged home in good condition to follow up outpatient with urology for possible lithotripsy. Discharge home in good condition Activity: Regular as tolerated Diet: Regular Meds: Per med rec Follow-up: With urology as instructed. Beth Sagastume MD Sep 16, 2017 10:23
--- NOTE | 2017-09-16 10:25 | HHI.DCPOC ---
Discharge Care Plan Diagnosis: (1) Left ureteral calculus (2) Hydronephrosis with renal calculous obstruction (3) Abdominal pain Goals to Promote Your Health * To prevent worsening of your condition and complications * To maintain your health at the optimal level Directions to Meet Your Goals Take your medications as prescribed Follow your dietary instruction Follow activity as directed Keep your appointments as scheduled Take your immunizations and boosters as scheduled If your symptoms worsen call your PCP, if no PCP go to Urgent Care Center or Emergency Room Smoking is Dangerous to Your Health. Avoid second hand smoke Call the 24-hour hour crisis hotline for domestic abuse at Beth Sagastume MD Sep 16, 2017 10:25
== END 2017-09-16 12:11 | disposition home or self-care (01) | DRG 694 ==
LOC: PHED 20:33 → PHEDA 23:39 → HSDI 09-15 12:40 → N06B 09-15 14:59
PROVIDERS: ADMIT Family Medicine; ATTEND Family Medicine
PROC: 0T778DZ Dilation of Left Ureter with Intraluminal Device, Via Natural or Artificial Opening Endoscopic (ICD-10-PCS; 2017-09-15)
PROC: BT1F1ZZ Fluoroscopy of Left Kidney, Ureter and Bladder using Low Osmolar Contrast (ICD-10-PCS; principal; 2017-09-15 13:17)
DX: N13.2 Hydronephrosis with renal and ureteral calculous obstruction (principal); Z87.442 Personal history of urinary calculi; Z87.891 Personal history of nicotine dependence
CPT/HCPCS: 74177; 80048; 80053; 81001; 83690; 85025; 85610; 85730; 96361; 96374; 96375; 96376; C1769; J0690; J1100; J1885; J2270; J2405; J3010; J7030; Q9967

== ENCOUNTER 2017-09-18 15:12 | Emergency (ER) | payer MEDICAID ==
[~2017-09-18 15:12] MED LIST changes: +CEPH-459 PO; -DOCU100C15 PO; -OXYC1TAB35 PO; +PERC5TAB12 PO
[2017-09-18 15:15] VITALS: BP 160/92; PULSE 106; RESP 16; TEMP 98.5; O2SAT 98
[2017-09-18] MEDS ORDERED: KETOROLAC TROMETHAMINE 30 MG/ML (IVP) VIAL IVP ONE (16:00)
[2017-09-18] MEDS ORDERED: ONDANSETRON HCL 4 MG/2 ML VIAL IVP ONE (16:00)
[2017-09-18] MEDS ORDERED: SODIUM CHLOR 0.9% 1000 ML INJ 1,000 ML IV ONE (16:00)
[2017-09-18] MEDS ORDERED: SODIUM CHLORIDE 0.9% FLUSH 10 ML FLUSH IVF PRN (16:00)
--- NOTE | 2017-09-18 16:02 | PD ---
HPI Chief Complaint: Complaint Time Seen by Provider: 15:50 Travel History International Travel<30 days: No Contact w/Intl Traveler<30days: No Traveled to known affect area: No History of Present Illness HPI 36-year-old male patient presents emergency department with worsening right flank pain. Patient was seen last Monday and underwent kidney stenting for a [address] Harding. Patient was discharged home, with Percocet 5/325 1- 2 pills every 6 hours with increasing pain, he is also noticed increased hematuria and clots in his urine. Patient denies specific fever, chills, mild nausea but no vomiting. Pain is currently 7 out of 10. Patient attempted to call Dr. Harding's office but that was not answered as its Presidents' Day. He has no known drug allergies. PFSH Past Medical History Autoimmune Disease: No Depression: Yes (SITUATIONAL) Cancer: No Cardiovascular Problems: No Diminished Hearing: No Diverticulitis: Yes Endocrine: No Gastrointestinal Disorders: No Genitourinary: Yes Immune Disorder: No Implanted Vascular Access Dvce: No Kidney Stones: Yes Musculoskeletal: Yes Neurologic: No Psychiatric: No Reproductive: No Respiratory: Yes Immunizations Current: Yes Past Surgical History Genitourinary Surgery: Yes (LITHOTRIPSY: RIGHT KIDNEY) Other Surgery: No Social History Alcohol Use: Yes ("RARELY") Tobacco Use: No (QUIT AGE 25) Substance Use: No Allergies-Medications (Allergen,Severity, Reaction): Coded Allergies: No Known Allergies (Unverified Allergy, Unknown, 09/14/17) Reported Meds & Prescriptions Reported Meds & Active Scripts Active Percocet (Oxycodone-Acetaminophen) 5-325 mg Tab 1-2 Tab PO Q6H PRN Keflex (Cephalexin) 250 Mg Cap 250 Mg PO TID Review of Systems Except as stated in HPI: all other systems reviewed are Neg General / Constitutional: No: Fever, Chills Eyes: No: Visual changes HENT: No: Headaches Cardiovascular: No: Chest Pain or Discomfort Respiratory: No: Shortness of Breath Gastrointestinal: Positive: Nausea, No: Vomiting, Diarrhea, Abdominal Pain Genitourinary: Positive: Hematuria, Flank Pain, No: Urgency, Frequency, Dysuria Musculoskeletal: No: Pain Skin: No Rash Neurologic: No: Weakness Psychiatric: No: Depression Endocrine: No: Polydipsia Hematologic/Lymphatic: No: Easy Bruising Physical Exam Narrative GENERAL: Patient appears in mild distress SKIN: Warm and dry. Normal color. Normal turgor. HEAD: Atraumatic. Normocephalic. EYES: Pupils equal and round. No scleral icterus. No injection or drainage. ENT: No nasal bleeding or discharge. Mucous membranes pink and moist. Lungs clear. Airway patent NECK: Trachea midline. Supple and nontender. CARDIOVASCULAR: Regular rate and rhythm. RESPIRATORY: No accessory muscle use. Clear to auscultation. Breath sounds equal bilaterally. GASTROINTESTINAL: Abdomen soft, non-tender, nondistended. Hepatic and splenic margins not palpable. Patient is mild to moderate left sided flank pain. MUSCULOSKELETAL: Extremities without clubbing, cyanosis, or edema. No obvious deformities. NEUROLOGICAL: Awake and alert. No obvious cranial nerve deficits. Motor grossly within normal limits. Five out of 5 muscle strength in the arms and legs. Normal speech. PSYCHIATRIC: Appropriate mood and affect; insight and judgment normal. Data Data Last Documented VS Vital Signs Date Time Temp Pulse Resp B/P (MAP) Pulse Ox O2 Delivery O2 Flow Rate FiO2 09/18/17 15:15 98.5 106 16 160/92 (114) 98 Orders Orders Complete Blood Count With Diff (09/18/17 15:19) Basic Metabolic Panel (Bmp) (09/18/17 15:19) Urinalysis - C+S If Indicated (09/18/17 15:19) Ct Abd/Pel W/O Iv Contrast (09/18/17 15:53) Iv Access Insert/Monitor (09/18/17 15:53) Ketorolac Inj (Toradol Inj) (09/18/17 16:00) Ondansetron Inj (Zofran Inj) (09/18/17 16:00) Sodium Chloride 0.9% Flush (Ns Flush) (09/18/17 16:00) Sodium Chlor 0.9% 1000 Ml Inj (Ns 1000 M (09/18/17 16:00) Morphine Inj (Morphine Inj) (09/18/17 17:00) Oxycodone-Acetamin 10-325 Mg (Percocet 1 (09/18/17 19:00) Labs Laboratory Tests Test 09/18/17 13:25 White Blood Count 11.7 TH/MM3 Red Blood Count 4.73 MIL/MM3 Hemoglobin 14.0 GM/DL Hematocrit 40.5 % Mean Corpuscular Volume 85.7 FL Mean Corpuscular Hemoglobin 29.6 PG Mean Corpuscular Hemoglobin Concent 34.5 % Red Cell Distribution Width 13.3 % Platelet Count 308 TH/MM3 Mean Platelet Volume 8.0 FL Neutrophils (%) (Auto) 60.6 % Lymphocytes (%) (Auto) 29.2 % Monocytes (%) (Auto) 8.0 % Eosinophils (%) (Auto) 1.6 % Basophils (%) (Auto) 0.6 % Neutrophils # (Auto) 7.1 TH/MM3 Lymphocytes # (Auto) 3.4 TH/MM3 Monocytes # (Auto) 0.9 TH/MM3 Eosinophils # (Auto) 0.2 TH/MM3 Basophils # (Auto) 0.1 TH/MM3 CBC Comment DIFF FINAL Differential Comment Urine Color LIGHT-RED Urine Turbidity HAZY Urine pH 6.0 Urine Specific [place] 1.023 Urine Protein 30 mg/dL Urine Glucose (UA) NEG mg/dL Urine Ketones NEG mg/dL Urine Occult Blood LARGE Urine Nitrite NEG Urine Bilirubin NEG Urine Urobilinogen LESS THAN 2.0 MG/DL Urine Leukocyte Esterase TRACE Urine RBC /hpf Urine WBC 3 /hpf Urine Squamous Epithelial Cells <1 /hpf Urine Amorphous Sediment RARE Urine Mucus FEW /lpf Microscopic Urinalysis Comment CULT NOT INDICATED Blood Urea Nitrogen 12 MG/DL Creatinine 0.91 MG/DL Random Glucose 125 MG/DL Calcium Level 9.2 MG/DL Sodium Level 138 MEQ/L Potassium Level 3.7 MEQ/L Chloride Level 102 MEQ/L Carbon Dioxide Level 26.4 MEQ/L Anion Gap 10 MEQ/L Estimat Glomerular Filtration Rate 93 ML/MIN [facility] Medical Decision Making Medical Screen Exam Complete: Yes Emergency Medical Condition: Yes Medical Record Reviewed: Yes Differential Diagnosis Urinary tract infection. Hydronephrosis. Obstructing kidney stone. Narrative Course Patient is medically stable at time of exam. Labs ordered including CBC, BMP, and urinalysis IV access is obtained and the patient is given 4 mg Zofran IV as well as 30 mg Toradol IV. Patient is also given 1000 mL of normal saline bolus. CT the abdomen and pelvis without contrast is ordered. Patient is given 2 mg morphine IV for pain. CBC is unremarkable. CMP is unremarkable Urinalysis shows blood but no signs of infection CT shows: CONCLUSION: 1. No evidence of hydronephrosis on either side. Left double-J stent in place. 2. Nonspecific mildly prominent left para-aortic lymph nodes stable from prior. I called auto adjudication specialist for Dr. Harding and the patient was discussed. Patient is felt stable for discharge, with close follow-up tomorrow with Dr. Harding's office if symptoms continue. Patient is to continue Percocet 10/325 every 6 hours as needed. #8 prescribed Patient given Zofran 4 mg every 6 hours as well. #12 Diagnosis Primary Impression: Left ureteral calculus Additional Impression: Renal colic Referrals: Jose Alberto Fishman MD 1 day Patient Instructions: General Instructions, Narcotic given in the ED Additional Instructions: CBC is unremarkable. CMP is unremarkable Urinalysis shows blood but no signs of infection CT shows: CONCLUSION: 1. No evidence of hydronephrosis on either side. Left double-J stent in place. 2. Nonspecific mildly prominent left para-aortic lymph nodes stable from prior. I called auto adjudication specialist for Dr. Harding and the patient was discussed. Patient is felt stable for discharge, with close follow-up tomorrow with Dr. Harding's office if symptoms continue. Patient is to continue Percocet 10/325 every 6 hours as needed. #8 prescribed Patient given Zofran 4 mg every 6 hours as well. #12 Disposition: 01 DISCHARGE HOME Condition: Stable Antonio Montesinos Sep 18, 2017 16:02
[2017-09-18 16:03] LABS: AMORPHOUS SEDIMENT, URINE RARE; BILIRUBIN, URINE NEG (NEG); BLOOD, URINE LARGE (NEG); GLUCOSE,URINE NEG (NEG); KETONE, URINE NEG (NEG); MUCUS URINE FEW /lpf (OCC); NITRITE,URINE NEG (NEG); SQUAMOUS EPITHELIAL CELL URINE <1 /hpf (0-5); URINE LEUKOCYTE ESTERASE TRACE (NEG)
[2017-09-18 16:04] LABS: URINE COLOR LIGHT-RED (YELLW/STRAW)
[2017-09-18 16:07] LABS: AUTOMATED NEUTROPHIL # 7.1 TH/MM3 (1.8-7.7); BASOPHIL # 0.1 TH/MM3 (0-0.2); BASOPHIL % 0.6 % (0.0-2.0); EOSINOPHIL # 0.2 TH/MM3 (0-0.4); EOSINOPHIL % 1.6 % (0.0-4.0); HEMATOCRIT 40.5 % (39.0-51.0); LYMPH % 29.2 % (9.0-44.0); LYMPHOCYTE # 3.4 TH/MM3 (1.0-4.8); MEAN CELL VOLUME 85.7 FL (80.0-100.0); MEAN CORPUSCULAR HEMOGLOBIN 29.6 PG (27.0-34.0); MEAN CORPUSCULAR HGB CONC 34.5 % (32.0-36.0); MONOCYTE # 0.9 TH/MM3 (0-0.9); NEUT % 60.6 % (16.0-70.0); PLATELET COUNT 308 TH/MM3 (150-450); RED BLOOD COUNT 4.73 MIL/MM3 (4.50-5.90); RED CELL DISTRIBUTION WIDTH 13.3 % (11.6-17.2); WHITE BLOOD COUNT 11.7 TH/MM3 (4.0-11.0)
[2017-09-18 16:20] LABS: BICARBONATE 26.4 MEQ/L (21.0-32.0); CALCIUM 9.2 MG/DL (8.5-10.1); CREATININE 0.91 MG/DL (0.60-1.30)
[2017-09-18] MEDS ORDERED: MORPHINE SULFATE 2 MG/ML INJ IV PUSH ONE (17:00)
--- NOTE | 2017-09-18 17:00 | RADRPT ---
EXAM DATE/TIME: 09/18/2017 16:35 [facility] COMPARISON: CT ABDOMEN & PELVIS W CONTRAST, January 25, 2017, 10:00. INDICATIONS : Left flank pain and hematuria for two days. ORAL CONTRAST: No oral contrast ingested. RADIATION DOSE: 11.95 CTDIvol (mGy) MEDICAL HISTORY : Diverticulitis. Renal calculi. SURGICAL HISTORY : Lithotripsy, ureter stent ENCOUNTER: Initial ACUITY: 2 days PAIN SCALE: 7/10 LOCATION: Left flank TECHNIQUE: Renal colic protocol. Volumetric scanning of the abdomen and pelvis was performed. Using automated exposure control and adjustment of the mA and/or kV according to patient size, radiation dose was kep t as low as reasonably achievable to obtain optimal diagnostic quality images. DICOM format image da ta is available electronically for review and comparison. FINDINGS: Right side: No evidence of hydronephrosis or calcified stones. Normal dimension right ureter. Left side: Double-J stent extends from the left renal pelvis into the urinary bladder. No evidence hydronephros is. No calcifications seen along the course of the ureter or the collecting system. Bladder: No calcifications within the lumen. Smooth margins. Other: No calcified gallstones. No dilated loops of small or large bowel. Minimal amount of stool in the r ight and transverse colon. Several mildly prominent nonspecific periaortic lymph nodes measuring up to 1.4 cm. Visualized lower lungs are clear. CONCLUSION: 1. No evidence of hydronephrosis on either side. Left double-J stent in place. 2. Nonspecific mildly prominent left para-aortic lymph nodes stable from prior. Saturnino Asencio MD on September 18, 2017 at 16:53 Board Certified Radiologist. This report was verified electronically.
[2017-09-18] MEDS ORDERED: ZOFR4TAB PO (18:54)
[2017-09-18] MEDS ORDERED: OXYC1TAB36 PO (18:54)
[2017-09-18] MEDS ORDERED: oxyCODONE/ACETAMINOPHEN 10 MG/325 MG TAB PO ONE (19:00)
== END 2017-09-18 21:00 | disposition home or self-care (01) ==
LOC: NEPD 15:12
DX: N20.1 Calculus of ureter (principal); N23 Unspecified renal colic; Z87.442 Personal history of urinary calculi
CPT/HCPCS: 74176; 80048; 81001; 85025; 96361; 96374; 96375; 99284; J1885; J2270; J2405; J7030

== ENCOUNTER 2017-09-22 11:02 | Emergency (ER) | payer MEDICAID ==
[~2017-09-22] VITALS: Ht 175.3 cm; Wt 118.0 kg
[~2017-09-22 11:02] MED LIST changes: +OXYC1TAB36 PO; +ZOFR4TAB PO
[2017-09-22 11:07] VITALS: BP 148/90; PULSE 110; RESP 18; TEMP 98; O2SAT 96
[2017-09-22] MEDS ORDERED: SODIUM CHLOR 0.9% 1000 ML INJ 1,000 ML IV SCH (11:21)
--- NOTE | 2017-09-22 11:24 | PD ---
HPI Chief Complaint: Flank/Kidney Pain Time Seen by Provider: 11:21 Travel History International Travel<30 days: No Contact w/Intl Traveler<30days: No Traveled to known affect area: No History of Present Illness HPI 36-year-old male patient with history of 9 mm kidney stone on the left side status post stenting a week ago by Dr. Fishman, here because he states that he is having increase in bilateral flank pains, worsening hematuria as of today. His pain is currently a 6 out of 10 but he states it goes up with urinating. He states that he is starting to have some urinary frequency, feels like he has to go every hour. He denies any fevers, vomiting, or other issues. Modifying Factors: None Associated Signs & Symptoms: Hematuria, worsening flank pain Risk Factors: large kidney stone status post stenting a week ago PFSH Past Medical History Autoimmune Disease: No Depression: Yes (SITUATIONAL) Cancer: No Cardiovascular Problems: No Diminished Hearing: No Diverticulitis: Yes Endocrine: No Gastrointestinal Disorders: No Genitourinary: Yes Immune Disorder: No Implanted Vascular Access Dvce: No Kidney Stones: Yes Musculoskeletal: Yes Neurologic: No Psychiatric: No Reproductive: No Respiratory: Yes Immunizations Current: Yes Past Surgical History Genitourinary Surgery: Yes (LITHOTRIPSY: RIGHT KIDNEY) Other Surgery: No Social History Alcohol Use: Yes ("RARELY") Tobacco Use: No (QUIT AGE 25) Substance Use: No Allergies-Medications (Allergen,Severity, Reaction): Coded Allergies: No Known Allergies (Unverified Allergy, Unknown, 09/22/17) Reported Meds & Prescriptions Reported Meds & Active Scripts Active Zofran (Ondansetron HCl) 4 Mg Tab 4 Mg PO Q6HR PRN Oxycodone-Acetaminophen 10-325 mg Tab 1 Tab PO Q6H PRN Percocet (Oxycodone-Acetaminophen) 5-325 mg Tab 1-2 Tab PO Q6H PRN Keflex (Cephalexin) 250 Mg Cap 250 Mg PO TID Review of Systems Except as stated in HPI: all other systems reviewed are Neg Physical Exam Narrative GENERAL: Well-developed middle-age male patient currently and mild distress. Awake and oriented 3. SKIN: Focused skin assessment warm/dry. HEAD: Atraumatic. Normocephalic. EYES: Pupils equal and round. No scleral icterus. No injection or drainage. ENT: No nasal bleeding or discharge. Mucous membranes pink and moist. NECK: Trachea midline. No JVD. Supple. CARDIOVASCULAR: Regular rate and rhythm. No murmur appreciated. RESPIRATORY: No accessory muscle use. Clear to auscultation. Breath sounds equal bilaterally. GASTROINTESTINAL: Abdomen soft, non-tender, nondistended. Hepatic and splenic margins not palpable. BACK: No CVA tenderness. No rash. No point tenderness on palpation of the spine. MUSCULOSKELETAL: No obvious deformities. No clubbing. No cyanosis. No edema. NEUROLOGICAL: Awake and alert. No obvious cranial nerve deficits. Motor grossly within normal limits. Normal speech. PSYCHIATRIC: Appropriate mood and affect; insight and judgment normal. Data Data Last Documented VS Vital Signs Date Time Temp Pulse Resp B/P (MAP) Pulse Ox O2 Delivery O2 Flow Rate FiO2 09/22/17 12:33 16 09/22/17 12:00 97 Room Air 09/22/17 11:57 88 09/22/17 11:07 98.0 148/90 (109) Orders Orders Complete Blood Count With Diff (09/22/17 11:21) Comprehensive Metabolic Panel (09/22/17 11:21) Prothrombin Time / Inr (Pt) (09/22/17 11:21) Act Partial Throm Time (Ptt) (09/22/17 11:21) Urinalysis - C+S If Indicated (09/22/17 11:21) Iv Access Insert/Monitor (09/22/17 11:21) Ecg Monitoring (09/22/17 11:21) Oximetry (09/22/17 11:21) Morphine Inj (Morphine Inj) (09/22/17 11:30) Ondansetron Inj (Zofran Inj) (09/22/17 11:30) Sodium Chlor 0.9% 1000 Ml Inj (Ns 1000 M (09/22/17 11:21) Sodium Chloride 0.9% Flush (Ns Flush) (09/22/17 11:30) Urine Culture (09/22/17 11:42) Abdomen, Kub Only (09/22/17 12:17) Ed Discharge Order (09/22/17 12:59) Labs Laboratory Tests Test 09/22/17 11:42 White Blood Count 7.7 TH/MM3 Red Blood Count 4.80 MIL/MM3 Hemoglobin 13.9 GM/DL Hematocrit 40.7 % Mean Corpuscular Volume 84.8 FL Mean Corpuscular Hemoglobin 29.0 PG Mean Corpuscular Hemoglobin Concent 34.2 % Red Cell Distribution Width 12.6 % Platelet Count 315 TH/MM3 Mean Platelet Volume 7.5 FL Neutrophils (%) (Auto) 55.8 % Lymphocytes (%) (Auto) 28.2 % Monocytes (%) (Auto) 9.0 % Eosinophils (%) (Auto) 4.4 % Basophils (%) (Auto) 2.6 % Neutrophils # (Auto) 4.3 TH/MM3 Lymphocytes # (Auto) 2.2 TH/MM3 Monocytes # (Auto) 0.7 TH/MM3 Eosinophils # (Auto) 0.3 TH/MM3 Basophils # (Auto) 0.2 TH/MM3 CBC Comment DIFF FINAL Differential Comment Prothrombin Time 10.2 SEC Prothromb Time International Ratio 1.0 RATIO Activated Partial Thromboplast Time 28.2 SEC Urine Collection Type CLEAN CATCH Urine Color RED Urine Turbidity MARKED Urine pH 6.5 Urine Specific [place] 1.020 Urine Protein 100 mg/dL Urine Glucose (UA) NEG mg/dL Urine Ketones NEG mg/dL Urine Occult Blood LARGE Urine Nitrite NEG Urine Bilirubin NEG Urine Leukocyte Esterase TRACE Urine RBC INNUM /hpf Urine WBC 20-24 /hpf Urine Squamous Epithelial Cells 0-5 /hpf Microscopic Urinalysis Comment CULTURE INDICATED Urine Collection Time 11:42 Blood Urea Nitrogen 11 MG/DL Creatinine 0.79 MG/DL Random Glucose 100 MG/DL Total Protein 7.7 GM/DL Albumin 3.8 GM/DL Calcium Level 8.8 MG/DL Alkaline Phosphatase 73 U/L Aspartate Amino Transf (AST/SGOT) 23 U/L Alanine Aminotransferase (ALT/SGPT) 42 U/L Total Bilirubin 0.3 MG/DL Sodium Level 136 MEQ/L Potassium Level 3.7 MEQ/L Chloride Level 101 MEQ/L Carbon Dioxide Level 26.0 MEQ/L Anion Gap 9 MEQ/L Estimat Glomerular Filtration Rate 110 ML/MIN [facility] Medical Decision Making Medical Screen Exam Complete: Yes Emergency Medical Condition: Yes Medical Record Reviewed: Yes Interpretation(s) Laboratory Tests Test 09/22/17 11:42 Monocytes (%) (Auto) 9.0 % (0.0-8.0) Eosinophils (%) (Auto) 4.4 % (0.0-4.0) Basophils (%) (Auto) 2.6 % (0.0-2.0) Urine Color RED (YELLW/STRAW) Urine Turbidity MARKED (CLEAR) Urine Protein 100 mg/dL (NEG-TRACE) Urine Occult Blood LARGE (NEG) Urine Leukocyte Esterase TRACE (NEG) Urine RBC INNUM /hpf (0-3) Urine WBC 20-24 /hpf (0-5) Last 24 hours Impressions Abdomen X-Ray 09/22/17 1217 Signed Impressions: Service Date/Time: Friday, September 22, 2017 12:25 - CONCLUSION: Left ureteral stent in place. Left ureteral stone is unchanged in position Denilson Galindo MD Differential Diagnosis Renal colic versus pyelonephritis versus musculoskeletal Narrative Course Lab work did not indicate any significant anemia, UA shows lots of blood and some WBCs which is to be expected with a stent in. Renal function is unremarkable. Case was discussed with Dr. Raza who had recommended x-ray which shows that the stent is in place. He would like the patient to follow up for lithotripsy, drink plenty of fluids, continue pain medications. Hematuria is clearing in the ER. The plan was discussed with the patient extensively and he states understanding. Diagnosis Primary Impression: Left ureteral calculus Additional Impression: Hematuria Med/Other Pt SpecificInfo: Prescription(s) given Scripts Oxycodone-Acetaminophen (Oxycodone-Acetaminophen) 10-325 mg Tab 1 TAB PO Q6H Y for PAIN, #10 TAB 0 Refills Prov: Adonay Carlos MD 09/22/17 Disposition: 01 DISCHARGE HOME Condition: Stable Adonay Carlos MD Sep 22, 2017 11:24
[2017-09-22] MEDS ORDERED: ONDANSETRON HCL 4 MG/2 ML VIAL IVP ONE (11:30)
[2017-09-22] MEDS ORDERED: MORPHINE SULFATE 4 MG/ML INJ IV PUSH ONE (11:30)
[2017-09-22] MEDS ORDERED: SODIUM CHLORIDE 0.9% FLUSH 10 ML FLUSH IV FLUSH PRN (11:30)
[2017-09-22 11:47] LABS: AUTOMATED NEUTROPHIL # 4.3 TH/MM3 (1.8-7.7); BASOPHIL # 0.2 TH/MM3 (0-0.2); BASOPHIL % 2.6 % (0.0-2.0); EOSINOPHIL # 0.3 TH/MM3 (0-0.4); EOSINOPHIL % 4.4 % (0.0-4.0); HEMATOCRIT 40.7 % (39.0-51.0); HEMOGLOBIN 13.9 GM/DL (13.0-17.0); LYMPH % 28.2 % (9.0-44.0); LYMPHOCYTE # 2.2 TH/MM3 (1.0-4.8); MEAN CELL VOLUME 84.8 FL (80.0-100.0); MEAN CORPUSCULAR HGB CONC 34.2 % (32.0-36.0); MEAN PLATELET VOLUME 7.5 FL (7.0-11.0); MONOCYTE # 0.7 TH/MM3 (0-0.9); NEUT % 55.8 % (16.0-70.0); PLATELET COUNT 315 TH/MM3 (150-450); RED CELL DISTRIBUTION WIDTH 12.6 % (11.6-17.2); WHITE BLOOD COUNT 7.7 TH/MM3 (4.0-11.0)
[2017-09-22 11:53] LABS: BILIRUBIN, URINE NEG (NEG); BLOOD, URINE LARGE (NEG); GLUCOSE,URINE NEG (NEG); KETONE, URINE NEG (NEG); NITRITE,URINE NEG (NEG); PH, URINE 6.5 (5.0-8.5); URINE LEUKOCYTE ESTERASE TRACE (NEG)
[2017-09-22 11:54] LABS: CHLORIDE 101 MEQ/L (98-107); SODIUM (NA) 136 MEQ/L (136-145)
[2017-09-22 11:57] LABS: CALCIUM 8.8 MG/DL (8.5-10.1)
[2017-09-22 11:58] LABS: ALBUMIN 3.8 GM/DL (3.4-5.0); BLOOD UREA NITROGEN 11 MG/DL (7-18); GLUCOSE,RANDOM 100 MG/DL (74-106)
[2017-09-22 12:00] VITALS: RESP 16; O2SAT 97
[2017-09-22 12:00] LABS: PROTHROMBIN TIME - PATIENT 10.2 SEC (9.8-11.6)
[2017-09-22 12:01] LABS: ALT (GPT) 42 U/L (12-78); AST (GOT) 23 U/L (15-37); CREATININE 0.79 MG/DL (0.60-1.30); GLOMERULAR FILTRATION RATE 110 ML/MIN (>89)
[2017-09-22 12:02] LABS: TOTAL BILIRUBIN ADULT 0.3 MG/DL (0.2-1.0); TOTAL PROTEIN 7.7 GM/DL (6.4-8.2)
[2017-09-22 12:03] LABS: ALKALINE PHOSPHATASE 73 U/L (45-117)
[2017-09-22 12:09] LABS: URINE COLOR RED (YELLW/STRAW)
[2017-09-22 12:10] LABS: RBC, URINE INNUM /hpf (0-3); SQUAMOUS EPITHELIAL CELL URINE 0-5 /hpf (0-5)
[2017-09-22 12:33] VITALS: RESP 16
--- NOTE | 2017-09-22 12:58 | RADRPT ---
EXAM DATE/TIME: 09/22/2017 12:25 [facility] COMPARISON: CT ABDOMEN & PELVIS W CONTRAST, September 14, 2017, 21:45. CT ABDOMEN & PELVIS W/O CONTRAST, September 18, 2017, 16:35. INDICATIONS : Left ureteral stent placed 6 days ago. Hematuria & left flank pain (worse during urination) since kameron nt placement. MEDICAL HISTORY : Renal calculi. Diverticulitis. SURGICAL HISTORY : Left ureteral stent. Lithotripsy. ENCOUNTER: Initial ACUITY: 4 - 6 days PAIN SCORE: 9/10 LOCATION: Left flank abdomen FINDINGS: A double-J ureteral stent is present on the left. The stent appears to be in good position. An 8-9 mm calcific focus overlies the proximal left ureter adjacent to the stent at the level of the left hernandez sverse process of L3 which is grossly unchanged in position. No other suspicious calcifications are i dentified. The regional skeleton is intact. The intestinal gas pattern is nonspecific and benign. CONCLUSION: Left ureteral stent in place. Left ureteral stone is unchanged in position Denilson Galindo MD on September 22, 2017 at 12:54 Board Certified Radiologist. This report was verified electronically.
[2017-09-22] MEDS ORDERED: OXYC1TAB36 PO (13:11)
[2017-09-22 13:16] VITALS: BP 143/81
== END 2017-09-22 13:29 | disposition home or self-care (01) ==
LOC: PHED 11:02
DX: N20.1 Calculus of ureter (principal); R31.9 Hematuria, unspecified; F32.9 Major depressive disorder, single episode, unspecified; Z96.0 Presence of urogenital implants; Z87.891 Personal history of nicotine dependence
CPT/HCPCS: 74018; 80053; 81001; 85025; 85610; 85730; 87086; 96361; 96374; 96375; 99284; J2270; J2405; J7030

== ENCOUNTER 2017-10-02 14:41 | Emergency (ER) | payer MEDICAID, OTHER ==
[~2017-10-02] VITALS: Ht 175.3 cm; Wt 118.0 kg
[~2017-10-02 14:41] MED LIST changes: +MULT-65 PO
[2017-10-02 14:52] VITALS: BP 139/85; PULSE 100; RESP 18; TEMP 98.4; O2SAT 95
[2017-10-02 15:24] LABS: BILIRUBIN, URINE NEG (NEG); BLOOD, URINE LARGE (NEG); GLUCOSE,URINE NEG (NEG); KETONE, URINE NEG (NEG); NITRITE,URINE NEG (NEG); PH, URINE 5.5 (5.0-8.5); URINE LEUKOCYTE ESTERASE TRACE (NEG)
[2017-10-02 15:29] LABS: URINE COLOR RED (YELLW/STRAW)
[2017-10-02 15:35] LABS: BACTERIA, URINE MOD /hpf; RBC, URINE INNUM /hpf (0-3)
[2017-10-02] MEDS ORDERED: ONDANSETRON HCL 4 MG/2 ML VIAL IVP ONE (16:15)
[2017-10-02] MEDS ORDERED: ONDANSETRON HCL 4 MG/2 ML VIAL IM ONE (16:15)
[2017-10-02] MEDS ORDERED: HYDROmorphone HCL PF 2 MG/ML VIAL IM ONE (16:15)
--- NOTE | 2017-10-02 16:15 | PD ---
HPI Chief Complaint: Complaint Time Seen by Provider: 16:01 Travel History International Travel<30 days: No Contact w/Intl Traveler<30days: No Traveled to known affect area: No History of Present Illness HPI This patient complains of left flank pain. It radiates toward his left groin. He has known kidney stone and has left-sided stent in place. He is scheduled for lithotripsy in 2 days. He says the pain got significantly worse and he was passing blood and decided to come to the emergency room. He denies fever or presyncopal symptoms. Duration 2 days. Severity is moderate to severe at times. No alleviating factors. No exacerbating factors. PFSH Past Medical History Autoimmune Disease: No Depression: Yes (SITUATIONAL) Cancer: No Cardiovascular Problems: No Diabetes: No Diminished Hearing: No Diverticulitis: Yes Endocrine: No Gastrointestinal Disorders: Yes (DIVERTICULITIS) Genitourinary: No Hepatitis: No Hiatal Hernia: No Immune Disorder: No Implanted Vascular Access Dvce: No Kidney Stones: Yes Musculoskeletal: No Neurologic: No Psychiatric: No Reproductive: No Respiratory: No Immunizations Current: Yes Thyroid Disease: No Influenza Vaccination: Yes ?: Not Past Surgical History Abdominal Surgery: No AICD: No Body Medical Devices: LEFT URETERAL STENT Cardiac Surgery: No Ear Surgery: No Endocrine Surgery: No Eye Surgery: No Genitourinary Surgery: Yes (LITHOTRIPSY: RIGHT KIDNEY, LEFT URETERAL STENT) Joint Replacement: No Oral Surgery: No Pacemaker: No Thoracic Surgery: No Other Surgery: Yes Social History Alcohol Use: Yes ("RARELY") Tobacco Use: No (QUIT AGE 25, 1/2 ppd) Substance Use: No Allergies-Medications (Allergen,Severity, Reaction): Coded Allergies: No Known Allergies (Unverified Allergy, Unknown, 10/02/17) Reported Meds & Prescriptions Reported Meds & Active Scripts Active Oxycodone-Acetaminophen 10-325 mg Tab 1 Tab PO Q6H PRN Zofran (Ondansetron HCl) 4 Mg Tab 4 Mg PO Q6HR PRN Reported Multi-Vitamin Daily (Multiple Vitamin) 1 Tab Tab 1 Tab PO DAILY Review of Systems General / Constitutional: No: Fever Eyes: No: Visual changes HENT: No: Headaches Cardiovascular: No: Chest Pain or Discomfort Respiratory: No: Shortness of Breath Gastrointestinal: Positive: Nausea, No: Abdominal Pain Genitourinary: Positive: Hematuria, Flank Pain, No: Dysuria Musculoskeletal: No: Pain Skin: No Rash Neurologic: No: Weakness Psychiatric: No: Depression Endocrine: No: Polydipsia Hematologic/Lymphatic: No: Easy Bruising Physical Exam Narrative GENERAL: Well-nourished, well-developed patient with left flank pain . SKIN: Focused skin assessment reveals no rash and nodules. Skin is Warm and dry. HEAD: Atraumatic. Normocephalic. EYES: Pupils equal and round. No scleral icterus. No injection or drainage. ENT: No nasal bleeding or discharge. Mucous membranes pink and moist. NECK: Trachea midline. No JVD. CARDIOVASCULAR: Regular rate and rhythm. No murmur appreciated. RESPIRATORY: No accessory muscle use. Clear to auscultation. Breath sounds equal bilaterally. GASTROINTESTINAL: Abdomen soft, non-tender, nondistended. Hepatic and splenic margins not palpable. MUSCULOSKELETAL: No obvious deformities. No clubbing. No cyanosis. No edema. NEUROLOGICAL: Awake and alert. No obvious cranial nerve deficits. Motor grossly within normal limits. Normal speech. PSYCHIATRIC: Appropriate mood and affect; insight and judgment normal. Data Data Last Documented VS Vital Signs Date Time Temp Pulse Resp B/P (MAP) Pulse Ox O2 Delivery O2 Flow Rate FiO2 10/02/17 17:46 97 18 140/97 (111) 97 Room Air 10/02/17 14:52 98.4 Orders Orders Urinalysis - C+S If Indicated (10/02/17 14:55) Urine Culture (10/02/17 14:55) Abdomen, Kub Only (10/02/17 ) Ondansetron Inj (Zofran Inj) (10/02/17 16:15) Hydromorphone Pf Inj (Dilaudid Pf Inj) (10/02/17 16:15) Ondansetron Inj (Zofran Inj) (10/02/17 16:15) Complete Blood Count With Diff (10/02/17 16:10) Basic Metabolic Panel (Bmp) (10/02/17 16:10) Hydromorphone Pf Inj (Dilaudid Pf Inj) (10/02/17 17:00) Labs Laboratory Tests Test 10/02/17 14:55 10/02/17 16:30 Urine Collection Type CLEAN CATCH Urine Color RED Urine Turbidity TURBID Urine pH 5.5 Urine Specific [place] GREATER/EQUAL 1.030 Urine Protein 100 mg/dL Urine Glucose (UA) NEG mg/dL Urine Ketones NEG mg/dL Urine Occult Blood LARGE Urine Nitrite NEG Urine Bilirubin NEG Urine Urobilinogen 0.2 MG/DL Urine Leukocyte Esterase TRACE Urine RBC INNUM /hpf Urine WBC 3-5 /hpf Urine Bacteria MOD /hpf Microscopic Urinalysis Comment CULTURE INDICATED White Blood Count 8.6 TH/MM3 Red Blood Count 4.73 MIL/MM3 Hemoglobin 13.6 GM/DL Hematocrit 40.4 % Mean Corpuscular Volume 85.4 FL Mean Corpuscular Hemoglobin 28.8 PG Mean Corpuscular Hemoglobin Concent 33.8 % Red Cell Distribution Width 12.8 % Platelet Count 368 TH/MM3 Mean Platelet Volume 7.5 FL Neutrophils (%) (Auto) 53.8 % Lymphocytes (%) (Auto) 31.5 % Monocytes (%) (Auto) 7.3 % Eosinophils (%) (Auto) 4.0 % Basophils (%) (Auto) 3.4 % Neutrophils # (Auto) 4.7 TH/MM3 Lymphocytes # (Auto) 2.7 TH/MM3 Monocytes # (Auto) 0.6 TH/MM3 Eosinophils # (Auto) 0.3 TH/MM3 Basophils # (Auto) 0.3 TH/MM3 CBC Comment DIFF FINAL Differential Comment Blood Urea Nitrogen 8 MG/DL Creatinine 0.79 MG/DL Random Glucose 98 MG/DL Calcium Level 8.3 MG/DL Sodium Level 136 MEQ/L Potassium Level 3.7 MEQ/L Chloride Level 102 MEQ/L Carbon Dioxide Level 26.0 MEQ/L Anion Gap 8 MEQ/L Estimat Glomerular Filtration Rate 110 ML/MIN [facility] Medical Decision Making Medical Screen Exam Complete: Yes Emergency Medical Condition: Yes Medical Record Reviewed: Yes Differential Diagnosis Kidney stone, stent migration, UTI Narrative Course I have reviewed the patient's electronic medical record. Reviewed his ER visit from a week ago. By CT scan shows a 9 mm left-sided stone IV placed and labs sent Gave him a dose of pain and nausea medication KUB ordered to check stent placement CBC metabolic studies are normal Urine shows hematuria without infection KUB shows good stent placement On recheck he is feeling improved Stable for outpatient follow-up with his lithotripsy appointment in 2 days Diagnosis Primary Impression: Left ureteral calculus Additional Impression: Acute left flank pain Additional Instructions: The patient was advised to follow up with their physician and return if they worsen. Med/Other Pt SpecificInfo: Other Disposition: 01 DISCHARGE HOME Condition: Stable Azar Mcdaniel MD Oct 02, 2017 16:15
[2017-10-02 16:35] LABS: AUTOMATED NEUTROPHIL # 4.7 TH/MM3 (1.8-7.7); BASOPHIL # 0.3 TH/MM3 (0-0.2); BASOPHIL % 3.4 % (0.0-2.0); EOSINOPHIL # 0.3 TH/MM3 (0-0.4); HEMATOCRIT 40.4 % (39.0-51.0); HEMOGLOBIN 13.6 GM/DL (13.0-17.0); LYMPH % 31.5 % (9.0-44.0); LYMPHOCYTE # 2.7 TH/MM3 (1.0-4.8); MEAN CELL VOLUME 85.4 FL (80.0-100.0); MEAN CORPUSCULAR HEMOGLOBIN 28.8 PG (27.0-34.0); MEAN CORPUSCULAR HGB CONC 33.8 % (32.0-36.0); MEAN PLATELET VOLUME 7.5 FL (7.0-11.0); MONO % 7.3 % (0.0-8.0); MONOCYTE # 0.6 TH/MM3 (0-0.9); NEUT % 53.8 % (16.0-70.0); PLATELET COUNT 368 TH/MM3 (150-450); RED BLOOD COUNT 4.73 MIL/MM3 (4.50-5.90); RED CELL DISTRIBUTION WIDTH 12.8 % (11.6-17.2); WHITE BLOOD COUNT 8.6 TH/MM3 (4.0-11.0)
[2017-10-02] MEDS ORDERED: HYDROmorphone HCL PF 1 MG/ML VIAL IVS ONE (16:45)
[2017-10-02 16:50] LABS: CALCIUM 8.3 MG/DL (8.5-10.1)
[2017-10-02 16:54] LABS: CREATININE 0.79 MG/DL (0.60-1.30)
[2017-10-02] MEDS ORDERED: HYDROmorphone HCL PF 2 MG/ML VIAL IV PUSH ONE (17:00)
--- NOTE | 2017-10-02 17:43 | RADRPT ---
EXAM DATE/TIME: 10/02/2017 17:21 [facility] COMPARISON: ABDOMEN KUB ONLY, September 22, 2017, 12:25. INDICATIONS : Left flank pain, check stent placement. MEDICAL HISTORY : Renal calculi. Diverticulitis SURGICAL HISTORY : Left ureteral stent. Lithotripsy ENCOUNTER: Initial ACUITY: 1 day PAIN SCORE: 5/10 LOCATION: Left flank. FINDINGS: Supine view of the abdomen was performed. The abdominal bowel gas pattern is normal. No abnormal ma sses or organomegaly is seen. There is a double-J stent on the left in good position. A 7 mm stone is directly adjacent to the proximal portion of the stent projecting at the L3-L4 disc space level. Thi s is unchanged in position from the prior study. The osseous structures are unremarkable. CONCLUSION: 1. Left double J stent with left proximal ureteral stone. Appearance is stable. Saturnino Lovelace Jr., MD on October 02, 2017 at 17:40 Board Certified Radiologist. This report was verified electronically.
[2017-10-02 17:46] VITALS: BP 140/97; PULSE 97; RESP 18; O2SAT 97
== END 2017-10-02 17:54 | disposition home or self-care (01) ==
LOC: PHEFT 14:41
DX: N20.1 Calculus of ureter (principal); R10.9 Unspecified abdominal pain; R31.9 Hematuria, unspecified; Z79.899 Other long term (current) drug therapy; Z87.891 Personal history of nicotine dependence; Z87.19 Personal history of other diseases of the digestive system; Z87.442 Personal history of urinary calculi
CPT/HCPCS: 74018; 80048; 81001; 85025; 87086; 96374; 96375; 99284; J1170; J2405

== ENCOUNTER → 2017-10-04 | Day surgery (SDC) | payer MEDICAID ==
[~2017-10-04] VITALS: Ht 172.7 cm; Wt 116.8 kg
[~2017-10-04] MED LIST changes: +*morphine SULFATE 10 MG/ML PERIprocedure ONLY ONE; -CEPH-459 PO; +CHLORHEXIDINE GLUCONATE 2 % 1 PACK (2 CLOTHS) TOPICAL PRN; +DEXAMETHASONE SOD PHOS 4 MG/ML VIAL IV ONE; +DO NOT ADM ANY ANTICOAGULANT DRUGS PRN; +LACTATED RINGER'S 1000 ML IV PRN; +LIDOCAINE HCL 1% PF 5 ML SYRINGE OTHER ONE; +METOPROLOL TARTRATE 25 MG TAB PO PRN; +MIDAZOLAM HCL 2 MG/2 ML VIAL ONE; +MORPHINE SULFATE 2 MG/ML INJ IV PRN; +ONDANSETRON HCL 4 MG/2 ML VIAL IV ONE; +ONDANSETRON HCL 4 MG/2 ML VIAL IV PRN; -PERC5TAB12 PO; +POVIDONE IODINE 5% (ANTISEPSIS KIT) 4 APPLICATIONS EACH NARE PRN; +PROPOFOL 200 MG/20 ML AMP IV ONE; +SODIUM CHLORID 0.9% 500 ML IV PRN; +ceFAZolin 1,000 MG/NS 100 ML IV SCH; +oxyCODONE/ACETAMINOPHEN 5 MG/325 MG TAB PO PRN
[2017-10-04 07:25] LABS: AUTOMATED NEUTROPHIL # 4.6 TH/MM3 (1.8-7.7); BASOPHIL % 0.5 % (0.0-2.0); EOSINOPHIL # 0.4 TH/MM3 (0-0.4); EOSINOPHIL % 5.5 % (0.0-4.0); HEMATOCRIT 39.7 % (39.0-51.0); HEMOGLOBIN 13.8 GM/DL (13.0-17.0); LYMPH % 29.9 % (9.0-44.0); LYMPHOCYTE # 2.4 TH/MM3 (1.0-4.8); MEAN CELL VOLUME 85.7 FL (80.0-100.0); MEAN CORPUSCULAR HEMOGLOBIN 29.8 PG (27.0-34.0); MEAN CORPUSCULAR HGB CONC 34.7 % (32.0-36.0); MEAN PLATELET VOLUME 7.4 FL (7.0-11.0); MONO % 6.3 % (0.0-8.0); MONOCYTE # 0.5 TH/MM3 (0-0.9); NEUT % 57.8 % (16.0-70.0); PLATELET COUNT 331 TH/MM3 (150-450); RED BLOOD COUNT 4.63 MIL/MM3 (4.50-5.90); WHITE BLOOD COUNT 7.9 TH/MM3 (4.0-11.0)
--- NOTE | 2017-10-04 07:26 | RADRPT ---
EXAM DATE/TIME: 10/04/2017 07:05 [facility] COMPARISON: No previous studies available for comparison. INDICATIONS : Pre op left side eswl. Left side kidney stone. MEDICAL HISTORY : Diverticulitis. Renal calculi. SURGICAL HISTORY : Lithotripsy, Left ureter stent ENCOUNTER: Initial ACUITY: 1 day PAIN SCORE: 7/10 LOCATION: Left Abdomen FINDINGS: Supine view of the abdomen was performed. Left-sided double-J ureteral catheter in excellent position . I do not clearly see the calcification seen on the 10/02/17 exam overlying the left ureter. The abdom inal bowel gas pattern is normal. No abnormal masses, calcifications, or organomegaly is seen. The osseous structures are unremarkable. CONCLUSION: Normal examination with a double-J ureteral catheter in good position. Tommy Lawson MD on October 04, 2017 at 7:24 Board Certified Radiologist. This report was verified electronically.
--- NOTE | 2017-10-04 09:19 | PD.OP ---
Operative Report Date of Surgery: Oct 04, 2017 Preoperative Diagnosis: Left ureteral calculus Postoperative Diagnosis: Same Procedure: Left extracorporeal shockwave lithotripsy Anesthesia: Gen.LMA Surgeon: Butch Matamoros History Department Chair(s): None Resident Surgeon: None Operation and Findings: 36-year-old male with left proximal ureteral calculus status post cystoscopy with left double-J stent insertion in the past elected to undergo left extracorporeal shockwave lithotripsy. Risk and benefits were discussed preoperatively and he was willing to proceed. Patient was brought to the operating room and identified by myself as Kristan Hdez. He received preprocedure antibiotics and general LMA anesthesia was administered. He was placed on the operating table in the supine position. Under fluoroscopic imaging guidance the stone was visualized in the left proximal ureter along the stent. ESWL therapy commenced. Patient received a total of 3000 shocks up to a power level of 6. Some fragmentation the stone was visualized under fluoroscopy. He tolerated the procedure well and was awoken and transferred her restabilization. He'll follow-up in the office in a few weeks and obtain a KUB x-ray prior. Butch Matamoros DO Oct 04, 2017 09:19
[2017-10-04 10:50] VITALS: BP 143/92; PULSE 89; RESP 16; TEMP 98; O2SAT 96
== END | disposition home or self-care (01) ==
LOC: HSDC 06:28
PROVIDERS: ATTEND Urology
DX: N20.1 Calculus of ureter (principal)
CPT/HCPCS: 00873; 50590; 74018; 85025; J0690; J1100; J2250; J2270; J2405; J3010

== ENCOUNTER 2017-10-23 13:01 | Emergency (ER) | payer SELFPAY ==
[~2017-10-23] VITALS: Ht 172.7 cm; Wt 120.0 kg
[~2017-10-23 13:01] MED LIST changes: -*morphine SULFATE 10 MG/ML PERIprocedure ONLY ONE; -CHLORHEXIDINE GLUCONATE 2 % 1 PACK (2 CLOTHS) TOPICAL PRN; -DEXAMETHASONE SOD PHOS 4 MG/ML VIAL IV ONE; -DO NOT ADM ANY ANTICOAGULANT DRUGS PRN; -LACTATED RINGER'S 1000 ML IV PRN; -LIDOCAINE HCL 1% PF 5 ML SYRINGE OTHER ONE; -METOPROLOL TARTRATE 25 MG TAB PO PRN; -MIDAZOLAM HCL 2 MG/2 ML VIAL ONE; -MORPHINE SULFATE 2 MG/ML INJ IV PRN; -ONDANSETRON HCL 4 MG/2 ML VIAL IV ONE; -ONDANSETRON HCL 4 MG/2 ML VIAL IV PRN; -POVIDONE IODINE 5% (ANTISEPSIS KIT) 4 APPLICATIONS EACH NARE PRN; -PROPOFOL 200 MG/20 ML AMP IV ONE; -SODIUM CHLORID 0.9% 500 ML IV PRN; -ceFAZolin 1,000 MG/NS 100 ML IV SCH; -oxyCODONE/ACETAMINOPHEN 5 MG/325 MG TAB PO PRN
[2017-10-23 13:05] VITALS: BP 164/95; PULSE 100; RESP 18; TEMP 99; O2SAT 96
--- NOTE | 2017-10-23 14:20 | PD ---
HPI Chief Complaint: Flank/Kidney Pain Time Seen by Provider: 14:15 Travel History International Travel<30 days: No Contact w/Intl Traveler<30days: No Traveled to known affect area: No History of Present Illness HPI 36-year-old male came to the emergency room with history of significant left flank pain. Patient was diagnosed with the kidney stone about one month ago. He had a stent put in with lithotripsy done couple weeks ago. Patient says that he has had waxing and waning pain in his flank area since then. However the pain that he is coming in for today started yesterday and has been unbearable. He also has been having on and off hematuria. Today gross blood in his urine. His procedure was done by Dr. Fishman at the [facility]. Patient still has the ureteral stenting. No history of fever or chills. He has been nauseous. Vital signs were within acceptable limits. PFSH Past Medical History Narrative Medical List of his past medical, surgical, social and family history is reviewed from the nursing note. Autoimmune Disease: No Depression: Yes (SITUATIONAL) Cancer: No Cardiovascular Problems: No Diabetes: No Diminished Hearing: No Diverticulitis: Yes Endocrine: No Gastrointestinal Disorders: Yes (DIVERTICULITIS) Genitourinary: No Hepatitis: No Hiatal Hernia: No Immune Disorder: No Implanted Vascular Access Dvce: No Kidney Stones: Yes Musculoskeletal: No Neurologic: No Psychiatric: No Reproductive: No Respiratory: No Immunizations Current: Yes Thyroid Disease: No ?: Not Past Surgical History Abdominal Surgery: No AICD: No Body Medical Devices: LEFT URETERAL STENT Cardiac Surgery: No Ear Surgery: No Endocrine Surgery: No Eye Surgery: No Genitourinary Surgery: Yes (LITHOTRIPSY: RIGHT KIDNEY, LEFT URETERAL STENT) Joint Replacement: No Oral Surgery: No Pacemaker: No Thoracic Surgery: No Other Surgery: Yes Social History Alcohol Use: Yes ("RARELY") Tobacco Use: No (QUIT AGE 25, 1/2 ppd) Substance Use: No Allergies-Medications (Allergen,Severity, Reaction): Coded Allergies: No Known Allergies (Verified Allergy, Unknown, 10/23/17) Comments No known drug allergies. Reported Meds & Prescriptions Reported Meds & Active Scripts Active Flomax (Tamsulosin HCl) 0.4 Mg Cap 0.4 Mg PO HS Hydrocodone-Acetaminophen 7.5 Mg-325 Mg Tab 1 Tab PO Q6H PRN Oxycodone-Acetaminophen 10-325 mg Tab 1 Tab PO Q6H PRN Zofran (Ondansetron HCl) 4 Mg Tab 4 Mg PO Q6HR PRN Reported Multi-Vitamin Daily (Multiple Vitamin) 1 Tab Tab 1 Tab PO DAILY Narrative Medication List of his home medications reviewed from the nursing note. Review of Systems Except as stated in HPI: all other systems reviewed are Neg Genitourinary: Positive: Hematuria, Flank Pain Physical Exam Narrative GENERAL: Awake, alert, moderate distress SKIN: Focused skin assessment warm/dry. HEAD: Atraumatic. Normocephalic. EYES: Pupils equal and round. No scleral icterus. No injection or drainage. ENT: No nasal bleeding or discharge. Mucous membranes pink and moist. NECK: Trachea midline. No JVD. CARDIOVASCULAR: Regular rate and rhythm. No murmur appreciated. RESPIRATORY: No accessory muscle use. Clear to auscultation. Breath sounds equal bilaterally. GASTROINTESTINAL: Abdomen soft, non-tender, nondistended. Hepatic and splenic margins not palpable. MUSCULOSKELETAL: No obvious deformities. No clubbing. No cyanosis. No edema. NEUROLOGICAL: Awake and alert. No obvious cranial nerve deficits. Motor grossly within normal limits. Normal speech. PSYCHIATRIC: Appropriate mood and affect; insight and judgment normal. Data Data Last Documented VS Orders Orders Complete Blood Count With Diff (10/23/17 14:24) Basic Metabolic Panel (Bmp) (10/23/17 14:24) Urinalysis - C+S If Indicated (10/23/17 14:24) Ct Abd/Pel W/O Iv Contrast (10/23/17 14:24) Ecg Monitoring (10/23/17 14:24) Iv Access Insert/Monitor (10/23/17 14:24) Ondansetron Inj (Zofran Inj) (10/23/17 14:30) Sodium Chloride 0.9% Flush (Ns Flush) (10/23/17 14:30) Sodium Chlor 0.9% 1000 Ml Inj (Ns 1000 M (10/23/17 14:24) Hydromorphone Pf Inj (Dilaudid Pf Inj) (10/23/17 14:30) Hydromorphone Pf Inj (Dilaudid Pf Inj) (10/23/17 15:00) Urine Culture (10/23/17 14:40) Blood Culture (10/23/17 16:14) Ceftriaxone Inj (Rocephin Inj) (10/23/17 16:15) Morphine Inj (Morphine Inj) (10/23/17 16:30) Ed Discharge Order (10/23/17 16:27) Labs Laboratory Tests Test 10/23/17 14:40 White Blood Count 9.9 TH/MM3 Red Blood Count 4.55 MIL/MM3 Hemoglobin 13.1 GM/DL Hematocrit 38.7 % Mean Corpuscular Volume 85.0 FL Mean Corpuscular Hemoglobin 28.7 PG Mean Corpuscular Hemoglobin Concent 33.7 % Red Cell Distribution Width 12.4 % Platelet Count 299 TH/MM3 Mean Platelet Volume 7.5 FL Neutrophils (%) (Auto) 64.9 % Lymphocytes (%) (Auto) 22.0 % Monocytes (%) (Auto) 7.2 % Eosinophils (%) (Auto) 2.5 % Basophils (%) (Auto) 3.4 % Neutrophils # (Auto) 6.5 TH/MM3 Lymphocytes # (Auto) 2.2 TH/MM3 Monocytes # (Auto) 0.7 TH/MM3 Eosinophils # (Auto) 0.2 TH/MM3 Basophils # (Auto) 0.3 TH/MM3 CBC Comment DIFF FINAL Differential Comment Urine Color BROWN Urine Turbidity CLOUDY Urine pH 6.0 Urine Specific [place] GREATER/EQUAL 1.030 Urine Protein 300 OR GREATER mg/dL Urine Glucose (UA) NEG mg/dL Urine Ketones NEG mg/dL Urine Occult Blood LARGE Urine Nitrite NEG Urine Bilirubin NEG Urine Urobilinogen 0.2 MG/DL Urine Leukocyte Esterase TRACE Urine RBC INNUM /hpf Urine WBC 9-14 /hpf Urine Squamous Epithelial Cells 0-5 /hpf Urine Amorphous Sediment FEW Urine Bacteria OCC /hpf Microscopic Urinalysis Comment CULTURE INDICATED Blood Urea Nitrogen 11 MG/DL Creatinine 0.94 MG/DL Random Glucose 88 MG/DL Calcium Level 8.7 MG/DL Sodium Level 138 MEQ/L Potassium Level 4.0 MEQ/L Chloride Level 105 MEQ/L Carbon Dioxide Level 26.3 MEQ/L Anion Gap 7 MEQ/L Estimat Glomerular Filtration Rate 90 ML/MIN [facility] Medical Decision Making Medical Screen Exam Complete: Yes Emergency Medical Condition: Yes Medical Record Reviewed: Yes Differential Diagnosis Urinary obstruction, recurrent stone, UTI, pyelonephritis Narrative Course 4:13 PM blood test results of back and within acceptable limits. UA shows gross hematuria along with some pyuria. CT scan shows a 3 mm stone in the left ureter with the stent still in place. His moderate hydronephrosis. I put a call out for Dr. Fishman to discuss the case with him. I'll give him a dose of IV Rocephin here. 4:24 PM I discussed the case with Dr. Fishman and as per him patient probably out of the pain medication and should get another prescription. He wants the patient to be on antibiotic. As per him patient could go home and he will see him in his office. His next appointment. I let the patient know about the findings and the discussion with the urologist. Patient says his appointment is to words the end of the week. I'm comfortable discharging the patient home at this point. Procedures EKG Prior to Arrival: No Diagnosis Primary Impression: Left ureteral calculus Additional Impressions: Flank pain UTI (urinary tract infection) Qualified Codes: N39.0 - Urinary tract infection, site not specified; R31.9 - Hematuria, unspecified Referrals: Jose Alberto Fishman MD Additional Instructions: Keep the appointment with the urologist. Take the medication as per the prescription direction. Return to the ER if condition worsens or any other new concerns. Med/Other Pt SpecificInfo: Prescription(s) given Scripts Tamsulosin (Flomax) 0.4 Mg Cap 0.4 MG PO HS for Manage Prostate Problems, #10 CAP 0 Refills Prov: Lori Wolfe MD 10/23/17 Hydrocodone-Acetaminophen (Hydrocodone-Acetaminophen) 7.5 Mg-325 Mg Tab 1 TAB PO Q6H Y for PAIN, #15 TAB 0 Refills Prov: Lori Wolfe MD 10/23/17 Disposition: 01 DISCHARGE HOME Condition: Stable Lori Wolfe MD Oct 23, 2017 14:20
[2017-10-23] MEDS ORDERED: SODIUM CHLOR 0.9% 1000 ML INJ 1,000 ML IV ONE (14:24)
[2017-10-23] MEDS ORDERED: ONDANSETRON HCL 4 MG/2 ML VIAL IV PUSH ONE (14:30)
[2017-10-23] MEDS ORDERED: HYDROmorphone HCL PF 1 MG/ML VIAL IV PUSH ONE (14:30)
[2017-10-23] MEDS ORDERED: SODIUM CHLORIDE 0.9% FLUSH 10 ML FLUSH IVF PRN (14:30)
[2017-10-23 14:58] LABS: AUTOMATED NEUTROPHIL # 6.5 TH/MM3 (1.8-7.7); BASOPHIL # 0.3 TH/MM3 (0-0.2); BASOPHIL % 3.4 % (0.0-2.0); EOSINOPHIL # 0.2 TH/MM3 (0-0.4); EOSINOPHIL % 2.5 % (0.0-4.0); HEMATOCRIT 38.7 % (39.0-51.0); HEMOGLOBIN 13.1 GM/DL (13.0-17.0); LYMPHOCYTE # 2.2 TH/MM3 (1.0-4.8); MEAN CORPUSCULAR HEMOGLOBIN 28.7 PG (27.0-34.0); MEAN CORPUSCULAR HGB CONC 33.7 % (32.0-36.0); MEAN PLATELET VOLUME 7.5 FL (7.0-11.0); MONO % 7.2 % (0.0-8.0); MONOCYTE # 0.7 TH/MM3 (0-0.9); NEUT % 64.9 % (16.0-70.0); PLATELET COUNT 299 TH/MM3 (150-450); RED BLOOD COUNT 4.55 MIL/MM3 (4.50-5.90); RED CELL DISTRIBUTION WIDTH 12.4 % (11.6-17.2); WHITE BLOOD COUNT 9.9 TH/MM3 (4.0-11.0)
[2017-10-23] MEDS ORDERED: HYDROmorphone HCL PF 2 MG/ML VIAL IV PUSH ONE (15:00)
[2017-10-23 15:10] LABS: BICARBONATE 26.3 MEQ/L (21.0-32.0); CALCIUM 8.7 MG/DL (8.5-10.1)
[2017-10-23 15:14] LABS: CREATININE 0.94 MG/DL (0.60-1.30)
[2017-10-23 15:25] LABS: BLOOD, URINE LARGE (NEG); GLUCOSE,URINE NEG (NEG); KETONE, URINE NEG (NEG); NITRITE,URINE NEG (NEG); URINE LEUKOCYTE ESTERASE TRACE (NEG)
[2017-10-23 15:37] LABS: BILIRUBIN, URINE NEG (NEG); URINE COLOR BROWN (YELLW/STRAW)
[2017-10-23 15:53] LABS: AMORPHOUS SEDIMENT, URINE FEW; BACTERIA, URINE OCC /hpf; RBC, URINE INNUM /hpf (0-3); SQUAMOUS EPITHELIAL CELL URINE 0-5 /hpf (0-5)
--- NOTE | 2017-10-23 16:07 | RADRPT ---
EXAM DATE/TIME: 10/23/2017 15:47 [facility] COMPARISON: CT ABDOMEN & PELVIS W/O CONTRAST, September 18, 2017, 16:35. INDICATIONS : Left flank pain. Recent lithotripsy and left ureteral stent placement. ORAL CONTRAST: No oral contrast ingested. RADIATION DOSE: 23.55 CTDIvol (mGy) MEDICAL HISTORY : Diverticulitis. Renal calculi. SURGICAL HISTORY : Lithotripsy. Ureteral stent. ENCOUNTER: Initial ACUITY: 1 week PAIN SCALE: 6/10 LOCATION: Left flank TECHNIQUE: Volumetric scanning of the abdomen and pelvis was performed. Using automated exposure control and ad justment of the mA and/or kV according to patient size, radiation dose was kept as low as reasonably achievable to obtain optimal diagnostic quality images. DICOM format image data is available electro nically for review and comparison. FINDINGS: LOWER LUNGS: The visualized lower lungs are clear. LIVER: Homogeneous density without lesion. There is no dilation of the biliary tree. No calcified gallston es. There is mild hepatic steatosis. SPLEEN: Normal size without lesion. PANCREAS: Within normal limits. KIDNEYS: The right kidney remains normal in size, shape and attenuation with no focal lesion or hydronephrosis . The left kidney is now enlarged. There are no left renal calculi. The left sided double pigtail ure teral stent catheter remains in place however there is new moderate left hydronephrosis and dilatatio n of the proximal ureter. There is a small 3 mm renal calculus along the lateral stent at the level o f the upper left pelvis best seen on axial image #105. ADRENAL GLANDS: Within normal limits. VASCULAR: There is no aortic aneurysm. BOWEL/MESENTERY: The stomach, small bowel, and colon demonstrate no acute abnormality. There is no free intraperitone al air or fluid. ABDOMINAL WALL: Within normal limits. RETROPERITONEUM: There is no lymphadenopathy. BLADDER: No wall thickening or mass. REPRODUCTIVE: Within normal limits. INGUINAL: There is no lymphadenopathy or hernia. MUSCULOSKELETAL: Within normal limits for patient age. CONCLUSION: 1. New moderate left hydronephrosis. The left ureteral stent catheter remains in place. There is a small 3 mm calculus along the mid to distal ureter. 2. The right kidney remains unremarkable. Jose Manuel Sanchez MD on October 23, 2017 at 15:58 Board Certified Radiologist. This report was verified electronically.
[2017-10-23] MEDS ORDERED: cefTRIAXone INJ 1,000 MG in SODIUM CHLORIDE 0.9% INJ 100 ML IV ONE (16:15)
[2017-10-23] MEDS ORDERED: HYDR-3580 PO (16:27)
[2017-10-23] MEDS ORDERED: TAMS5CAP PO (16:27)
[2017-10-23 16:30] VITALS: BP 144/100; PULSE 96; RESP 16; O2SAT 94
[2017-10-23] MEDS ORDERED: MORPHINE SULFATE 8 MG/ML INJ IV PUSH ONE (16:30)
[2017-10-23 17:00] VITALS: BP 154/86; PULSE 100; RESP 16; O2SAT 94
[2017-10-23 17:45] VITALS: BP 162/72; PULSE 95; RESP 20; O2SAT 98
== END 2017-10-23 17:50 | disposition home or self-care (01) ==
LOC: PHED 13:01
DX: N13.2 Hydronephrosis with renal and ureteral calculous obstruction (principal); N39.0 Urinary tract infection, site not specified; F32.9 Major depressive disorder, single episode, unspecified; Z96.0 Presence of urogenital implants; Z87.891 Personal history of nicotine dependence
CPT/HCPCS: 74176; 80048; 81001; 85025; 87040; 87086; 96365; 96375; 99285; J0696; J1170; J2270; J2405; J7030

== ENCOUNTER 2017-11-07 15:58 | Emergency (ER) | payer SELFPAY ==
[~2017-11-07] VITALS: Ht 172.7 cm; Wt 118.0 kg
[~2017-11-07 15:58] MED LIST changes: +HYDR-3580 PO; +TAMS5CAP PO
[2017-11-07 16:00] VITALS: BP 185/103; PULSE 102; RESP 18; TEMP 98.1; O2SAT 96
[2017-11-07 17:14] LABS: BLOOD, URINE LARGE (NEG); GLUCOSE,URINE NEG (NEG); KETONE, URINE TRACE mg/dL (NEG); NITRITE,URINE NEG (NEG); PH, URINE 5.5 (5.0-8.5); URINE LEUKOCYTE ESTERASE NEG (NEG)
--- NOTE | 2017-11-07 17:20 | PD ---
HPI Chief Complaint: Flank/Kidney Pain Time Seen by Provider: 17:20 Travel History International Travel<30 days: No Contact w/Intl Traveler<30days: No Traveled to known affect area: No History of Present Illness HPI The patient is 36 years old and arrives with left flank pain. Pain radiates to the left groin into the penis. He reports hematuria. He has a history of renal stones multiple times over and reports presence of a left double-J ureteral stent. He reports recent lithotripsy. He follows with Dr. Raza. No vomiting. Pain is severe. It's continuous. PFSH Past Medical History Autoimmune Disease: No Depression: Yes (SITUATIONAL) Cancer: No Cardiovascular Problems: No Diabetes: No Diminished Hearing: No Diverticulitis: Yes Endocrine: No Gastrointestinal Disorders: Yes (DIVERTICULITIS) Genitourinary: No Hepatitis: No Hiatal Hernia: No Hypertension: No Immune Disorder: No Implanted Vascular Access Dvce: No Kidney Stones: Yes Musculoskeletal: No Neurologic: No Psychiatric: No Reproductive: No Respiratory: No Immunizations Current: Yes Thyroid Disease: No Past Surgical History Abdominal Surgery: No AICD: No Body Medical Devices: LEFT URETERAL STENT Cardiac Surgery: No Ear Surgery: No Endocrine Surgery: No Eye Surgery: No Genitourinary Surgery: Yes (LITHOTRIPSY: RIGHT KIDNEY, LEFT URETERAL STENT) Joint Replacement: No Neurologic Surgery: No Oral Surgery: No Pacemaker: No Thoracic Surgery: No Other Surgery: Yes Social History Alcohol Use: Yes ("RARELY") Tobacco Use: No (QUIT AGE 25, 1/2 ppd) Substance Use: No Allergies-Medications (Allergen,Severity, Reaction): Coded Allergies: No Known Allergies (Verified Allergy, Unknown, 11/07/17) Reported Meds & Prescriptions Reported Meds & Active Scripts Active Hydrocodone-Acetaminophen 7.5 Mg-325 Mg Tab 1 Tab PO Q6H PRN Reported Multi-Vitamin Daily (Multiple Vitamin) 1 Tab Tab 1 Tab PO DAILY Review of Systems Except as stated in HPI: all other systems reviewed are Neg General / Constitutional: No: Fever Eyes: No: Diploplia Physical Exam Narrative GENERAL: 36-year-old male pleasant well-nourished well-developed Vital Signs Date Time Temp Pulse Resp B/P (MAP) Pulse Ox O2 Delivery O2 Flow Rate FiO2 11/07/17 16:00 98.1 102 18 185/103 (130) 96 SKIN: Warm and dry. HEAD: Atraumatic. Normocephalic. EYES: Pupils equal and round. No scleral icterus. No injection or drainage. ENT: No nasal bleeding or discharge. Mucous membranes pink and moist. NECK: Trachea midline. No JVD. CARDIOVASCULAR: Regular rate and rhythm. RESPIRATORY: No accessory muscle use. Clear to auscultation. Breath sounds equal bilaterally. GASTROINTESTINAL: Abdomen soft, non-tender, nondistended. Hepatic and splenic margins not palpable. MUSCULOSKELETAL: Extremities without clubbing, cyanosis, or edema. No obvious deformities. NEUROLOGICAL: Awake and alert. No obvious cranial nerve deficits. Motor grossly within normal limits. Five out of 5 muscle strength in the arms and legs. Normal speech. PSYCHIATRIC: Appropriate mood and affect; insight and judgment normal. Data Data Last Documented VS Vital Signs Date Time Temp Pulse Resp B/P (MAP) Pulse Ox O2 Delivery O2 Flow Rate FiO2 11/07/17 16:00 98.1 102 18 185/103 (130) 96 Orders Orders Urinalysis - C+S If Indicated (11/07/17 16:17) Complete Blood Count With Diff (11/07/17 17:23) Comprehensive Metabolic Panel (11/07/17 17:23) Lipase (11/07/17 17:23) Iv Access Insert/Monitor (11/07/17 17:23) Ecg Monitoring (11/07/17 17:23) Oximetry (11/07/17 17:23) Ondansetron Inj (Zofran Inj) (11/07/17 17:30) Sodium Chloride 0.9% Flush (Ns Flush) (11/07/17 17:30) Ketorolac Inj (Toradol Inj) (11/07/17 17:30) Morphine Inj (Morphine Inj) (11/07/17 17:30) Urine Culture (11/07/17 16:50) Ed Discharge Order (11/07/17 18:14) Ed Discharge Order (11/07/17 18:16) Hydromorphone Pf Inj (Dilaudid Pf Inj) (11/07/17 18:30) Labs Laboratory Tests Test 11/07/17 16:50 11/07/17 17:20 Urine Collection Type VOIDED Urine Color YELLOW Urine Turbidity SL CLOUDY Urine pH 5.5 Urine Specific [place] GREATER/EQUAL 1.030 Urine Protein 100 mg/dL Urine Glucose (UA) NEG mg/dL Urine Ketones TRACE mg/dL Urine Occult Blood LARGE Urine Nitrite NEG Urine Bilirubin NEG Urine Urobilinogen 0.2 MG/DL Urine Leukocyte Esterase NEG Urine RBC INNUM /hpf Urine WBC 9-14 /hpf Urine Squamous Epithelial Cells 0-2 /hpf Urine Mucus FEW /lpf Microscopic Urinalysis Comment CULTURE INDICATED White Blood Count 9.9 TH/MM3 Red Blood Count 4.67 MIL/MM3 Hemoglobin 13.2 GM/DL Hematocrit 40.7 % Mean Corpuscular Volume 87.1 FL Mean Corpuscular Hemoglobin 28.3 PG Mean Corpuscular Hemoglobin Concent 32.5 % Red Cell Distribution Width 11.9 % Platelet Count 316 TH/MM3 Mean Platelet Volume 8.3 FL Neutrophils (%) (Auto) 63.8 % Lymphocytes (%) (Auto) 27.6 % Monocytes (%) (Auto) 5.6 % Eosinophils (%) (Auto) 2.1 % Basophils (%) (Auto) 0.9 % Neutrophils # (Auto) 6.3 TH/MM3 Lymphocytes # (Auto) 2.7 TH/MM3 Monocytes # (Auto) 0.6 TH/MM3 Eosinophils # (Auto) 0.2 TH/MM3 Basophils # (Auto) 0.1 TH/MM3 CBC Comment DIFF FINAL Differential Comment Blood Urea Nitrogen 8 MG/DL Creatinine 0.90 MG/DL Random Glucose 95 MG/DL Total Protein 8.2 GM/DL Albumin 4.0 GM/DL Calcium Level 9.1 MG/DL Alkaline Phosphatase 82 U/L Aspartate Amino Transf (AST/SGOT) 28 U/L Alanine Aminotransferase (ALT/SGPT) 45 U/L Total Bilirubin 0.3 MG/DL Sodium Level 137 MEQ/L Potassium Level 3.7 MEQ/L Chloride Level 102 MEQ/L Carbon Dioxide Level 26.3 MEQ/L Anion Gap 9 MEQ/L Estimat Glomerular Filtration Rate 94 ML/MIN Lipase 85 U/L MDM Medical Decision Making Medical Screen Exam Complete: Yes Emergency Medical Condition: Yes Medical Record Reviewed: Yes Differential Diagnosis Constipation, Gastritis, Acute Cholecystitis, Biliary Colic, Pancreatitis, ABBOTT , Hepatitis, Bowel Obstruction, Cystitis, Mesenteric Ischemia, AAA, Appendicitis , Renal Stone/Hydronephrosis, GERD, perforated viscous Narrative Course CBC & BMP Diagram 11/07/17 17:20 Total Protein 8.2, Albumin 4.0, Calcium Level 9.1, Alkaline Phosphatase 82, Aspartate Amino Transf (AST/SGOT) 28, Alanine Aminotransferase (ALT/SGPT) 45, Total Bilirubin 0.3 Urinalysis shows hematuria with no WBCs Diagnosis Primary Impression: Left flank pain, chronic Additional Impression: Hematuria Qualified Codes: R31.9 - Hematuria, unspecified Referrals: Jose Alberto Fishman MD call for appointment Med/Other Pt SpecificInfo: Prescription(s) given Scripts Ondansetron (Zofran) 4 Mg Tab 4 MG PO Q6HR Y for NAUSEA OR VOMITING, #10 TAB 0 Refills Prov: Percy Carpio MD 11/07/17 Oxycodone-Acetaminophen (Oxycodone-Acetaminophen) 10-325 mg Tab 1 TAB PO Q6H Y for PAIN, #10 TAB 0 Refills Prov: Percy Carpio MD 11/07/17 Disposition: 01 DISCHARGE HOME Condition: Stable Percy Carpio MD Nov 07, 2017 17:20
[2017-11-07 17:21] LABS: BILIRUBIN, URINE NEG (NEG)
[2017-11-07 17:22] LABS: RBC, URINE INNUM /hpf (0-3); URINE COLOR YELLOW (YELLW/STRAW)
[2017-11-07 17:23] LABS: MUCUS URINE FEW /lpf (OCC); SQUAMOUS EPITHELIAL CELL URINE 0-2 /hpf (0-5)
[2017-11-07] MEDS ORDERED: ONDANSETRON HCL 4 MG/2 ML VIAL IVP ONE (17:30)
[2017-11-07] MEDS ORDERED: KETOROLAC TROMETHAMINE 30 MG/ML (IVP) VIAL IVP ONE (17:30)
[2017-11-07] MEDS ORDERED: SODIUM CHLORIDE 0.9% FLUSH 10 ML FLUSH IV FLUSH PRN (17:30)
[2017-11-07] MEDS ORDERED: MORPHINE SULFATE 8 MG/ML INJ IV PUSH ONE (17:30)
[2017-11-07 17:44] LABS: AUTOMATED NEUTROPHIL # 6.3 TH/MM3 (1.8-7.7); BASOPHIL # 0.1 TH/MM3 (0-0.2); BASOPHIL % 0.9 % (0.0-2.0); EOSINOPHIL # 0.2 TH/MM3 (0-0.4); EOSINOPHIL % 2.1 % (0.0-4.0); HEMATOCRIT 40.7 % (39.0-51.0); HEMOGLOBIN 13.2 GM/DL (13.0-17.0); LYMPH % 27.6 % (9.0-44.0); LYMPHOCYTE # 2.7 TH/MM3 (1.0-4.8); MEAN CELL VOLUME 87.1 FL (80.0-100.0); MEAN CORPUSCULAR HEMOGLOBIN 28.3 PG (27.0-34.0); MEAN CORPUSCULAR HGB CONC 32.5 % (32.0-36.0); MEAN PLATELET VOLUME 8.3 FL (7.0-11.0); MONO % 5.6 % (0.0-8.0); MONOCYTE # 0.6 TH/MM3 (0-0.9); NEUT % 63.8 % (16.0-70.0); PLATELET COUNT 316 TH/MM3 (150-450); RED BLOOD COUNT 4.67 MIL/MM3 (4.50-5.90); RED CELL DISTRIBUTION WIDTH 11.9 % (11.6-17.2); WHITE BLOOD COUNT 9.9 TH/MM3 (4.0-11.0)
[2017-11-07 17:51] LABS: CHLORIDE 102 MEQ/L (98-107); SODIUM (NA) 137 MEQ/L (136-145)
[2017-11-07 17:54] LABS: CALCIUM 9.1 MG/DL (8.5-10.1)
[2017-11-07 17:55] LABS: BICARBONATE 26.3 MEQ/L (21.0-32.0); BLOOD UREA NITROGEN 8 MG/DL (7-18); GLUCOSE,RANDOM 95 MG/DL (74-106)
[2017-11-07 17:58] LABS: ALT (GPT) 45 U/L (12-78); AST (GOT) 28 U/L (15-37); GLOMERULAR FILTRATION RATE 94 ML/MIN (>89)
[2017-11-07 17:59] LABS: TOTAL BILIRUBIN ADULT 0.3 MG/DL (0.2-1.0); TOTAL PROTEIN 8.2 GM/DL (6.4-8.2)
[2017-11-07 18:00] LABS: ALKALINE PHOSPHATASE 82 U/L (45-117)
[2017-11-07] MEDS ORDERED: ZOFR4TAB PO (18:24)
[2017-11-07] MEDS ORDERED: OXYC1TAB36 PO (18:24)
[2017-11-07] MEDS ORDERED: HYDROmorphone HCL PF 2 MG/ML VIAL IV PUSH ONE (18:30)
[2017-11-07] MEDS ORDERED: PHEN0.4T PO (18:59)
[2017-11-07 19:15] VITALS: BP 147/84
== END 2017-11-07 19:17 | disposition home or self-care (01) ==
LOC: PHED 15:58
DX: R10.9 Unspecified abdominal pain (principal); R31.9 Hematuria, unspecified; R11.2 Nausea with vomiting, unspecified; Z87.442 Personal history of urinary calculi; Z87.891 Personal history of nicotine dependence
CPT/HCPCS: 80053; 81001; 83690; 85025; 87086; 96374; 96375; 99284; J1170; J1885; J2270; J2405

== ENCOUNTER 2017-11-28 17:43 | Emergency (ER) | payer SELFPAY ==
[~2017-11-28] VITALS: Ht 172.7 cm; Wt 118.1 kg
[~2017-11-28 17:43] MED LIST changes: +PHEN0.4T PO; -TAMS5CAP PO
[2017-11-28 17:48] VITALS: BP 172/99; PULSE 100; RESP 20; TEMP 97.6; O2SAT 95
--- NOTE | 2017-11-28 17:58 | PD ---
HPI Chief Complaint: Pain: Acute or Chronic Time Seen by Provider: 17:57 Travel History International Travel<30 days: No Contact w/Intl Traveler<30days: No Traveled to known affect area: No History of Present Illness HPI 37-year-old male came to the emergency room with his and 2 children for severe headache associated with lower abdominal pain. Patient says the lower abdominal pain has been there for many weeks since he had a stent put in for kidney stone. However the headache is new. The headache started today. It is associated with seeing flashes of light. Patient says that every time he opens his eyes the flashes of lights could be seen so he prefers to keep his eyes shut. It was difficult to have the patient focus and answer my questions since he was constantly grimacing from pain and moaning. The pain in the lower abdomen he pointed mostly to the suprapubic area. Patient says that he had a stent put in in August and lithotripsy done by urologist Dr. Fishman. He has been in the main hospital for flank pain since the stent placement and incidentally I had seen him last month. Patient has been in the emergency room multiple times for abdominal pain and flank pain. He said he usually does not get headaches. No history of associated fever or chills or any neck pain. [facility] Past Medical History Narrative Medical List of his past medical, surgical, social and family history list reviewed from the nursing note. Autoimmune Disease: No Depression: Yes (SITUATIONAL) Cancer: No Cardiovascular Problems: No Diabetes: No Diminished Hearing: No Diverticulitis: Yes Endocrine: No Gastrointestinal Disorders: Yes (DIVERTICULITIS) Genitourinary: No Hepatitis: No Hiatal Hernia: No Hypertension: No Immune Disorder: No Implanted Vascular Access Dvce: No Kidney Stones: Yes Musculoskeletal: No Neurologic: No Psychiatric: No Reproductive: No Respiratory: No Immunizations Current: Yes Thyroid Disease: No Past Surgical History Abdominal Surgery: No AICD: No Body Medical Devices: LEFT URETERAL STENT Cardiac Surgery: No Ear Surgery: No Endocrine Surgery: No Eye Surgery: No Genitourinary Surgery: Yes (LITHOTRIPSY: RIGHT KIDNEY, LEFT URETERAL STENT) Joint Replacement: No Neurologic Surgery: No Oral Surgery: No Pacemaker: No Thoracic Surgery: No Other Surgery: Yes Social History Alcohol Use: Yes ("RARELY") Tobacco Use: No (QUIT AGE 25, 1/2 ppd) Substance Use: No Allergies-Medications (Allergen,Severity, Reaction): Coded Allergies: No Known Allergies (Verified Allergy, Unknown, 11/28/17) Comments No known drug allergies. Reported Meds & Prescriptions Reported Meds & Active Scripts Active Fioricet (Kmnufondzc-Qjiwljgrvegkn-Rbkjofpb) 50-300-40 Mg Cap 1-2 Cap PO Q6H PRN Macrobid (Nitrofurantoin Monoh/Nitrofur Macro) 100 Mg Cap 100 Mg PO BID 10 Days Reported Multi-Vitamin Daily (Multiple Vitamin) 1 Tab Tab 1 Tab PO DAILY Narrative Medication List of his home medications reviewed from the nursing note. Review of Systems Except as stated in HPI: all other systems reviewed are Neg Gastrointestinal: Positive: Abdominal Pain Neurologic: Positive: Headache Physical Exam Narrative GENERAL: Awake, alert, obese, very anxious, moderate distress SKIN: Focused skin assessment warm/dry. HEAD: Atraumatic. Normocephalic. EYES: Pupils equal and round. No scleral icterus. No injection or drainage. ENT: No nasal bleeding or discharge. Mucous membranes pink and moist. NECK: Trachea midline. No JVD. Neck is supple, no signs of meningismus CARDIOVASCULAR: Regular rate and rhythm. No murmur appreciated. RESPIRATORY: No accessory muscle use. Clear to auscultation. Breath sounds equal bilaterally. GASTROINTESTINAL: Abdomen soft, non-tender, nondistended. Hepatic and splenic margins not palpable. MUSCULOSKELETAL: No obvious deformities. No clubbing. No cyanosis. No edema. NEUROLOGICAL: Awake and alert. No obvious cranial nerve deficits. Motor grossly within normal limits. Normal speech. PSYCHIATRIC: Appropriate mood and affect; insight and judgment normal. Data Data Last Documented VS Vital Signs Date Time Temp Pulse Resp B/P (MAP) Pulse Ox O2 Delivery O2 Flow Rate FiO2 11/28/17 20:36 11/28/17 20:07 96 18 11/28/17 18:33 96 Room Air 11/28/17 17:48 97.6 Orders Orders Complete Blood Count With Diff (11/28/17 18:05) Basic Metabolic Panel (Bmp) (11/28/17 18:05) C-Reactive Protein (Crp) (11/28/17 18:05) Ct Brain W/O Iv Contrast(Rout) (11/28/17 18:05) Ecg Monitoring (11/28/17 18:05) Iv Access Insert/Monitor (11/28/17 18:05) Oximetry (11/28/17 18:05) Sodium Chloride 0.9% Flush (Ns Flush) (11/28/17 18:15) Prochlorperazine Inj (Compazine Inj) (11/28/17 18:15) Sodium Chlor 0.9% 1000 Ml Inj (Ns 1000 M (11/28/17 18:05) Urinalysis - C+S If Indicated (11/28/17 18:05) Drug Screen, Random Urine (11/28/17 18:05) Ct Abd/Pel W/O Iv Contrast (11/28/17 ) Urine Culture (11/28/17 18:55) Ceftriaxone Inj (Rocephin Inj) (11/28/17 19:15) Blood Culture (11/28/17 19:09) Ed Discharge Order (11/28/17 19:29) Ketorolac Inj (Toradol Inj) (11/28/17 19:45) Phenazopyridine (Pyridium) (11/28/17 19:45) Labs Laboratory Tests Test 11/28/17 18:20 11/28/17 18:55 White Blood Count 10.8 TH/MM3 Red Blood Count 4.81 MIL/MM3 Hemoglobin 13.7 GM/DL Hematocrit 40.7 % Mean Corpuscular Volume 84.6 FL Mean Corpuscular Hemoglobin 28.4 PG Mean Corpuscular Hemoglobin Concent 33.6 % Red Cell Distribution Width 12.1 % Platelet Count 310 TH/MM3 Mean Platelet Volume 7.6 FL Neutrophils (%) (Auto) 64.0 % Lymphocytes (%) (Auto) 24.1 % Monocytes (%) (Auto) 6.2 % Eosinophils (%) (Auto) 3.8 % Basophils (%) (Auto) 1.9 % Neutrophils # (Auto) 6.9 TH/MM3 Lymphocytes # (Auto) 2.6 TH/MM3 Monocytes # (Auto) 0.7 TH/MM3 Eosinophils # (Auto) 0.4 TH/MM3 Basophils # (Auto) 0.2 TH/MM3 CBC Comment DIFF FINAL Differential Comment Blood Urea Nitrogen 11 MG/DL Creatinine 0.72 MG/DL Random Glucose 100 MG/DL Calcium Level 9.7 MG/DL Sodium Level 138 MEQ/L Potassium Level 3.7 MEQ/L Chloride Level 104 MEQ/L Carbon Dioxide Level 25.3 MEQ/L Anion Gap 9 MEQ/L Estimat Glomerular Filtration Rate 122 ML/MIN C-Reactive Protein 0.40 MG/DL Urine Color YELLOW Urine Turbidity SL CLOUDY Urine pH 5.5 Urine Specific [place] GREATER/EQUAL 1.030 Urine Protein 30 mg/dL Urine Glucose (UA) NEG mg/dL Urine Ketones NEG mg/dL Urine Occult Blood LARGE Urine Nitrite NEG Urine Bilirubin NEG Urine Urobilinogen 0.2 MG/DL Urine Leukocyte Esterase SMALL Urine RBC 100-200 /hpf Urine WBC 25-49 /hpf Urine Squamous Epithelial Cells 0-5 /hpf Microscopic Urinalysis Comment CULTURE INDICATED Urine Opiates Screen NEG Urine Barbiturates Screen NEG Urine Amphetamines Screen NEG Urine Benzodiazepines Screen NEG Urine Cocaine Screen NEG Urine Cannabinoids Screen NEG MDM Medical Decision Making Medical Screen Exam Complete: Yes Emergency Medical Condition: Yes Medical Record Reviewed: Yes Differential Diagnosis Subarachnoid hemorrhage, intracranial hemorrhage, migraine headache with aura, renal colic, UTI Narrative Course 7:25 PM patient was given IV fluid bolus and IV Compazine for the headache. CT scan of the head and abdomen and pelvis was ordered. CT scan of the head is negative. Abdomen and pelvis CT does not show any change from the last CT. Blood test results are back and within acceptable limits. UA suggestive of UTI. I have given him a dose of IV Rocephin. Patient will be discharged home on Macrobid prescription and to follow-up with Dr. Raza. Procedures EKG Prior to Arrival: No Diagnosis Primary Impression: Migraine headache with aura Qualified Codes: G43.111 - Migraine with aura, intractable, with status migrainosus Additional Impressions: UTI (urinary tract infection) Qualified Codes: N39.0 - Urinary tract infection, site not specified; R31.9 - Hematuria, unspecified Retained ureteral stent Referrals: Jose Alberto Fishman MD 2 days Additional Instructions: Please follow-up with your urologist. Take the medication as per the prescription direction. Drink lots of fluid and caffeinated beverages since it will help with the headache. Do not drink alcohol or smoke cigarettes. Do not watch television, computer screen or smart phone screens and give rest to your eyes and brain. Med/Other Pt SpecificInfo: Prescription(s) given Scripts Tmegnzmikt-Zgulqxduehhfq-Wkgwmtfr (Fioricet) 50-300-40 Mg Cap 1-2 CAP PO Q6H Y for HEADACHE, #15 CAP 0 Refills Prov: Lori Wolfe MD 11/28/17 Nitrofurantoin Monohydrate Macrocrystals (Macrobid) 100 Mg Cap 100 MG PO BID for Infection for 10 Days, #20 CAP 0 Refills Prov: Lori Wolfe MD 11/28/17 Disposition: 01 DISCHARGE HOME Condition: Stable Lori Wolfe MD November 28, 2017 17:58
[2017-11-28] MEDS ORDERED: SODIUM CHLOR 0.9% 1000 ML INJ 1,000 ML IV ONE (18:05)
[2017-11-28] MEDS ORDERED: PROCHLORPERAZINE INJ 10 MG/2 ML VIAL IVP ONE (18:15)
[2017-11-28] MEDS ORDERED: SODIUM CHLORIDE 0.9% FLUSH 10 ML FLUSH IVF PRN (18:15)
[2017-11-28 18:25] LABS: AUTOMATED NEUTROPHIL # 6.9 TH/MM3 (1.8-7.7); BASOPHIL # 0.2 TH/MM3 (0-0.2); BASOPHIL % 1.9 % (0.0-2.0); EOSINOPHIL # 0.4 TH/MM3 (0-0.4); EOSINOPHIL % 3.8 % (0.0-4.0); HEMATOCRIT 40.7 % (39.0-51.0); HEMOGLOBIN 13.7 GM/DL (13.0-17.0); LYMPH % 24.1 % (9.0-44.0); LYMPHOCYTE # 2.6 TH/MM3 (1.0-4.8); MEAN CELL VOLUME 84.6 FL (80.0-100.0); MEAN CORPUSCULAR HEMOGLOBIN 28.4 PG (27.0-34.0); MEAN CORPUSCULAR HGB CONC 33.6 % (32.0-36.0); MEAN PLATELET VOLUME 7.6 FL (7.0-11.0); MONO % 6.2 % (0.0-8.0); MONOCYTE # 0.7 TH/MM3 (0-0.9); PLATELET COUNT 310 TH/MM3 (150-450); RED BLOOD COUNT 4.81 MIL/MM3 (4.50-5.90); RED CELL DISTRIBUTION WIDTH 12.1 % (11.6-17.2); WHITE BLOOD COUNT 10.8 TH/MM3 (4.0-11.0)
[2017-11-28 18:33] VITALS: RESP 17; O2SAT 96
[2017-11-28 18:35] LABS: BICARBONATE 25.3 MEQ/L (21.0-32.0); CALCIUM 9.7 MG/DL (8.5-10.1)
[2017-11-28 18:39] LABS: CREATININE 0.72 MG/DL (0.60-1.30)
[2017-11-28 18:46] LABS: C-REACTIVE PROTEIN 0.4 MG/DL (0.00-0.30)
--- NOTE | 2017-11-28 18:53 | RADRPT ---
EXAM DATE/TIME: 11/28/2017 18:32 [facility] COMPARISON: No previous studies available for comparison. INDICATIONS : Headache and hallucinations today. RADIATION DOSE: 57.23 CTDIvol (mGy) MEDICAL HISTORY : Diverticulitis. Renal calculi. SURGICAL HISTORY : Left renal stent. Lithotripsy. ENCOUNTER: Initial ACUITY: 1 day PAIN SCALE: 4/10 LOCATION: cranial TECHNIQUE: Multiple contiguous axial images were obtained of the head. Using automated exposure control and adj ustment of the mA and/or kV according to patient size, radiation dose was kept as low as reasonably a chievable to obtain optimal diagnostic quality images. DICOM format image data is available electro nically for review and comparison. FINDINGS: CEREBRUM: The ventricles are normal for age. No evidence of midline shift, mass lesion, hemorrhage or acute in farction. No extra-axial fluid collections are seen. POSTERIOR FOSSA: The cerebellum and brainstem are intact. The 4th ventricle is midline. The cerebellopontine angle i s unremarkable. EXTRACRANIAL: The visualized portion of the orbits is intact. SKULL: The calvaria is intact. No evidence of skull fracture. CONCLUSION: Normal examination. Oj Grace MD on November 28, 2017 at 18:50 Board Certified Radiologist. This report was verified electronically.
[2017-11-28 19:02] LABS: BILIRUBIN, URINE NEG (NEG); BLOOD, URINE LARGE (NEG); GLUCOSE,URINE NEG (NEG); KETONE, URINE NEG (NEG); NITRITE,URINE NEG (NEG); PH, URINE 5.5 (5.0-8.5); URINE COLOR YELLOW (YELLW/STRAW); URINE LEUKOCYTE ESTERASE SMALL (NEG)
[2017-11-28 19:08] LABS: RBC, URINE 100-200 /hpf (0-3); SQUAMOUS EPITHELIAL CELL URINE 0-5 /hpf (0-5)
[2017-11-28] MEDS ORDERED: cefTRIAXone INJ 1,000 MG in SODIUM CHLORIDE 0.9% INJ 100 ML IV ONE (19:15)
--- NOTE | 2017-11-28 19:19 | RADRPT ---
EXAM DATE/TIME: 11/28/2017 18:36 [facility] COMPARISON: No previous studies available for comparison. INDICATIONS : Left lower quadrant pain. ORAL CONTRAST: No oral contrast ingested. RADIATION DOSE: 24.88 CTDIvol (mGy) MEDICAL HISTORY : Diverticulitis. Renal calculi. SURGICAL HISTORY : Left renal stent. Lithotripsy. ENCOUNTER: Initial ACUITY: 1 day PAIN SCALE: 5/10 LOCATION: Left lower quadrant TECHNIQUE: Volumetric scanning of the abdomen and pelvis was performed. Using automated exposure control and ad justment of the mA and/or kV according to patient size, radiation dose was kept as low as reasonably achievable to obtain optimal diagnostic quality images. DICOM format image data is available electro nically for review and comparison. FINDINGS: Lung bases are clear. Mild fatty liver. Spleen, adrenals, right kidney and pancreas unremarkable. The left kidney demonstrates moderate hydronephrosis with a left ureteral stent present. This is coil ed proximally in the left renal pelvis and distally in the bladder. Again seen is a small 3 mm calcul us adjacent to the distal stent similar to September. Minimal left perinephric stranding. No other pelvic mass or adenopathy. No free fluid. CONCLUSION: 1. Moderate left hydronephrosis similar to September 26. 3 mm calcification adjacent to distal stent as i t crosses iliac arteries. No new findings compared with prior exam. Oj Grace MD on November 28, 2017 at 19:10 Board Certified Radiologist. This report was verified electronically.
[2017-11-28] MEDS ORDERED: MACR100C2 PO (19:29)
[2017-11-28] MEDS ORDERED: BUTA1CAP PO (19:29)
[2017-11-28] MEDS ORDERED: PHENAZOPYRIDINE HCL 200 MG TAB PO ONE (19:45)
[2017-11-28] MEDS ORDERED: KETOROLAC TROMETHAMINE 30 MG/ML (IVP) VIAL IV PUSH ONE (19:45)
[2017-11-28 20:07] VITALS: BP 168/89; PULSE 96; RESP 18
== END 2017-11-28 20:55 | disposition home or self-care (01) ==
LOC: PHED 17:43
DX: G43.109 Migraine with aura, not intractable, without status migrainosus (principal); N39.0 Urinary tract infection, site not specified; N13.30 Unspecified hydronephrosis; F32.9 Major depressive disorder, single episode, unspecified; Z87.19 Personal history of other diseases of the digestive system; Z87.442 Personal history of urinary calculi; Z87.891 Personal history of nicotine dependence; Z79.899 Other long term (current) drug therapy
CPT/HCPCS: 70450; 74176; 80048; 80307; 81001; 85025; 86140; 87040; 87086; 96361; 96374; 96375; 99284; J0696; J0780; J1885; J7030

== ENCOUNTER 2018-05-03 12:59 | Observation (INO) ==
[2018-05-03 13:50] LABS: Baso # (Auto) 0.1 th/mm3 (0.0-0.2); Baso % (Auto) 1.1 % (0.0-2.0); Eos # (Auto) 0.3 th/mm3 (0.0-0.4); Eos % (Auto) 3.2 % (0.0-4.0); Hematocrit 43.6 % (39.0-51.0); Hemoglobin 14.8 gm/dL (13.0-17.0); Lymph # (Auto) 2.3 th/mm3 (1.0-4.8); Lymph % (Auto) 22.5 % (9.0-44.0); Mean Corpuscular Hemoglobin 28.8 pg (27.0-34.0); Mean Corpuscular Volume 84.7 fL (80.0-100.0); Mono # (Auto) 0.4 th/mm3 (0.0-0.9); Mono % (Auto) 4.2 % (0.0-8.0); Neut # (Auto) 7.2 th/mm3 (1.8-7.7); Platelet Count 309 th/mm3 (150-450); Red Blood Count 5.15 mil/mm3 (4.50-5.90); Red Cell Distribution Width 13.1 % (11.6-17.2); White Blood Count 10.3 th/mm3 (4.0-11.0)
[2018-05-03 14:13] LABS: Chloride 103 meq/L (98-107); Potassium 3.7 meq/L (3.5-5.1); Sodium 139 meq/L (136-145)
[2018-05-03 14:16] LABS: Calcium 9.1 mg/dL (8.5-10.1)
[2018-05-03 14:17] LABS: Albumin 3.9 g/dL (3.4-5.0); Anion Gap 12 meq/L (5-15); Blood Urea Nitrogen 11 mg/dL (7-18); Carbon Dioxide 23.7 meq/L (21.0-32.0); Glucose,Random 123 mg/dL (74-106)
--- NOTE | 2018-05-03 14:19 | XR ---
EXAM DATE: 05/03/2018 1:39 PM EDT AGE/SEX: 37 years / Male INDICATIONS: Chest pain. CLINICAL DATA: This is the patient's initial encounter. Patient reports that signs and symptoms have been present for 1 day and indicates a pain score of 8/10. MEDICAL/SURGICAL HISTORY: . Patient complaint of shortness of breath and chest pain. No prior history of heart or lung trouble. Non smoker. None. COMPARISON: [facility], RIBS RIGHT(W PA CXR MIN 3VWS), 12/21/2016. . FINDINGS: A single AP view of the chest demonstrates the lungs to be symmetrically aerated without evidence of mass, infiltrate or effusion. The cardiomediastinal contours are unremarkable. Osseous structures a re intact. CONCLUSION: Negative examination. Electronically signed by: Wes Dick MD 05/03/2018 2:18 PM EDT
[2018-05-03 14:20] LABS: Alanine Aminotransferase 33 U/L (12-78); Aspartate Aminotransferase 17 U/L (15-37); Glomerular Filtration Rate 89 mL/min (>89)
[2018-05-03 14:21] LABS: Total Protein 7.9 g/dL (6.4-8.2)
[2018-05-03 14:23] LABS: Alkaline Phosphatase 89 U/L (45-117)
[2018-05-03] MEDS ORDERED: Acetaminophen 500 MG Tablet PO PRN (14:42)
--- NOTE | 2018-05-03 14:57 | ED ---
HPI General Chief Complaint: Chest Pain Stated Complaint: Chest Pain/SOB [id number] Time Seen by Provider: 05/03/18 14:25 History of Present Illness HPI narrative: Since patient complains of chest pain. Duration 2 hours. Severity is moderate. Location is center sternum. Feels like an aching and a pressure. No injury or fever or cough. He denies history of cardiac disease. He has been having some elevated blood pressures recently. No alleviating factors. No exacerbating factors. Related Data Home Medications Medication Instructions Recorded Confirmed No Known Home Medications 05/03/18 05/03/18 Allergies Allergy/AdvReac Type Severity Reaction Status Date / Time No Known Allergies Allergy Verified 05/03/18 13:14 Review of Systems ROS: all other systems reviewed are negative [facility] Medical History Medical History Headache (Acute) Surgical History Surgical History History of renal stent (Acute) Social History Social History Substance History: No History of Abuse Second Hand Smoke Exposure: No Smoking Status: Former smoker How Often Do You Have a Drink Containing Alcohol: Monthly or less Immunization History Tetanus Immunization: <5 Years Hx Influenza Vaccine This Season: No Exam Narrative Exam Narrative: GENERAL: Well-nourished, well-developed patient in no apparent distress. SKIN: Focused skin assessment reveals no rash and nodules. Skin is Warm and dry. HEAD: Atraumatic. Normocephalic. EYES: Pupils equal and round. No scleral icterus. No injection or drainage. ENT: No nasal bleeding or discharge. Mucous membranes pink and moist. NECK: Trachea midline. No JVD. CARDIOVASCULAR: Regular rate and rhythm. No murmur appreciated. RESPIRATORY: No accessory muscle use. Clear to auscultation. Breath sounds equal bilaterally. GASTROINTESTINAL: Abdomen soft, non-tender, nondistended. Hepatic and splenic margins not palpable. MUSCULOSKELETAL: No obvious deformities. No clubbing. No cyanosis. No edema. NEUROLOGICAL: Awake and alert. No obvious cranial nerve deficits. Motor grossly within normal limits. Normal speech. PSYCHIATRIC: Appropriate mood and affect; insight and judgment normal. Course Initial Documented Vital Signs Temperature 98.5 F 05/03/18 13:00 Pulse Rate 114 H 05/03/18 13:00 Respiratory Rate 20 05/03/18 13:00 Blood Pressure 169/94 H 05/03/18 13:00 Pulse Oximetry 95 05/03/18 13:00 Last Documented Vital Signs Temperature 98.5 F 05/03/18 13:00 Pulse Rate 109 H 05/03/18 13:39 Respiratory Rate 20 05/03/18 13:30 Blood Pressure 152/88 H 05/03/18 13:30 Pulse Oximetry 97 05/03/18 13:39 Medical Decision Making MDM Narrative Medical decision making narrative: Workup done and does not show anything specific. He will be a 23-hour observation in the chest pain center to rule out cardiac cause of his symptoms. He is agreeable. I have reviewed it with the hospitalist team who will perform the observation. EKG shows sinus tachycardia and chest x-ray negative and labs normal I gave him an aspirin Medical Screen Exam Complete: Yes Emergency Medical Condition: Yes Differential Diagnosis Differential Diagnosis: Differential diagnosis includes [place], angina, pericarditis , pleurisy, GERD, anxiety. Medical Records Medical records reviewed: Yes I reviewed the patient's medical records. Lab Data Lab results narrative: Normal CBC and metabolic study and troponin Result diagrams: 05/03/18 13:05 05/03/18 13:05 Lab Results 05/03/18 05/03/18 Range/Units 13:05 13:05 CBC w Diff Auto diff final WBC 10.3 (4.0-11.0) th/mm3 RBC 5.15 (4.50-5.90) mil/mm3 Hgb 14.8 (13.0-17.0) gm/dL Hct 43.6 (39.0-51.0) % MCV 84.7 (80.0-100.0) fL MCH 28.8 (27.0-34.0) pg MCHC 34.0 (32.0-36.0) % RDW 13.1 (11.6-17.2) % Plt Count 309 (150-450) th/mm3 MPV 9.0 (7.0-11.0) fL Neut % (Auto) 69.0 (16.0-70.0) % Lymph % (Auto) 22.5 (9.0-44.0) % [place] % (Auto) 4.2 (0.0-8.0) % Eos % (Auto) 3.2 (0.0-4.0) % Baso % (Auto) 1.1 (0.0-2.0) % Neut # (Auto) 7.2 (1.8-7.7) th/mm3 Lymph # (Auto) 2.3 (1.0-4.8) th/mm3 [place] # (Auto) 0.4 (0.0-0.9) th/mm3 Eos # (Auto) 0.3 (0.0-0.4) th/mm3 Baso # (Auto) 0.1 (0.0-0.2) th/mm3 WBC Differential . Differential Comment . Sodium 139 (136-145) meq/L Potassium 3.7 (3.5-5.1) meq/L Chloride 103 (98-107) meq/L Carbon Dioxide 23.7 (21.0-32.0) meq/L Anion Gap 12 (5-15) meq/L BUN 11 (7-18) mg/dL Creatinine 0.94 (0.60-1.30) mg/dL Estimated GFR 89 (>89) mL/min Random Glucose 123 H (74-106) mg/dL Calcium 9.1 (8.5-10.1) mg/dL Total Bilirubin 0.2 (0.2-1.0) mg/dL AST 17 (15-37) U/L ALT 33 (12-78) U/L Alkaline Phosphatase 89 (45-117) U/L Troponin I Less than 0.02 L (0.02-0.05) ng/mL Total Protein 7.9 (6.4-8.2) g/dL Albumin 3.9 (3.4-5.0) g/dL Imaging Data Attestation: I personally reviewed and interpreted this imaging study as follows : My impression: Chest x-ray is normal Radiologist's impression: Chest X-Ray 05/03/18 13:39 CONCLUSION: Negative examination. ECG Data EKG Prior to Arrival: No Attestation: I personally reviewed and interpreted this ECG as follows: Prior ECG tracings: not available for review Interpretation: Patient has a sinus rhythm. No acute ST elevation. Rate is 114 , tachycardic. [place] and ID interval are normal Discharge Plan Discharge Disposition Patient Disposition: 30 Still Patient Discharge Details Diagnosis: Chest pain in adult Physicians Team ED Provider: Azar Mcdaniel Primary Care Provider: Primary Care Venecia Badillo Attending Provider: Alex Gillette Discharge Interventions Interventions: Vital Signs Last Done: 05/03/18 13:30 Status ED Status: Admitted Observation Patient
--- NOTE | 2018-05-03 15:16 | P.HP ---
History of Present Illness Primary Care Physician: No Primary Care Physician Chief Complaint: Chest pain History of Present Illness: This is a 30-year-old male patient with a known medical history of urethral stents and kidney stones who presented to the ED with complaints of chest pain. Patient states that while in the phone with his he was rather stressed and developed a midsternal chest pressure this morning. He states that the pain was located in his midsternal chest and radiated across, was characteristically pressure-like and stabbing in nature, was associated with nausea, vomiting, shortness of breath and sweating, the pain lasted roughly 2 hours and then went away when he presented to the ED with the use of nitroglycerin. Patient rates the pain a 6 out of 10 at its worst on pain scale. At the time of assessment patient's pain has improved and now states roughly a 3 out of 10 pain scale. Patient denies ever having this type of pain or sensation before. He does state that he has recently been told he has had elevated blood pressure, for the past couple months he has been attempting lifestyle changes including increasing his activity and losing weight. Patient does admit to history of tobacco abuse although has quit roughly 10 years ago. He did smoke half pack a day cigarettes for 5 years. Denies any illicit drug use including marijuana cocaine. Denies any drug allergies. Does admit to history of urethral stents and kidney stones with history of lithotripsy. Does not follow with the urologist. He does not have a memory care physician at this time. Denies ever having a previous stress test in the past. - Diagnosis (1) Chest pain in adult Review of Systems All other systems reviewed negative except as stated in [facility] - History History Provided By: Patient - Medical History Medical History: Medical History (Last Reviewed 05/03/18 @ 15:09 by Shayy Bush) Headache - Surgical History Surgical History: Surgical History (Last Reviewed 05/03/18 @ 15:09 by Shayy Bush) History of renal stent - Family History Family History: Family History (Last Updated 05/03/18 @ 16:22 by Shayy Bush) Other Family history in first degree relatives is unremarkable - Tobacco History Second Hand Smoke Exposure: No Tobacco Use In Past 30 Days: No Smoking Status: Former smoker - Alcohol History How Often Do You Have a Drink Containing Alcohol: Monthly or less - Substance Use History Substance History: No History of Abuse - Immunization History Tetanus Immunization: <5 Years Hx Influenza Vaccine This Season: No Medications and Allergies Active Medications: Active Medications Acetaminophen (Tylenol) 500 mg PO Q4H PRN PRN Reason: HEADACHE Nitroglycerin (Nitrostat Sl) 0.4 mg SL Q5M PRN PRN Reason: CHEST PAIN Ondansetron HCl (Zofran Inj) 4 mg IV.PUSH Q6H PRN PRN Reason: NAUSEA Sodium Chloride (Ns Flush) 2 ml IV.FLUSH BID MEDINA Sodium Chloride (Ns Flush) 2 ml IV.FLUSH PRN PRN PRN Reason: FLUSH AFTER USING IV ACCESS Allergies Allergy/AdvReac Type Severity Reaction Status Date / Time No Known Allergies Allergy Verified 05/03/18 13:14 Home Medications Medication Instructions Recorded Confirmed Type No Known Home Medications 05/03/18 05/03/18 History Exam Vital signs: Vital Signs 05/03/18 13:00 05/03/18 13:30 05/03/18 13:39 Temperature 98.5 F Pulse Rate 114 H 111 H 109 H Respiratory Rate 20 20 Blood Pressure 169/94 H 152/88 H Pulse Oximetry 95 93 L 97 Intake & Output 05/02/18 05/03/18 05/03/18 18:59 06:59 18:59 Weight 121 kg Narrative: GENERAL: Well-developed, well-nourished patient in [facility]. SKIN: Warm and dry. No rash. HEAD: Normocephalic. Atraumatic. EYES: Pupils equal and round. No scleral icterus. No injection or drainage. ENT: No nasal bleeding or discharge. Mucous membranes pink and moist. NECK: Supple. Trachea midline. CARDIOVASCULAR: Regular rate and rhythm. S1, S2 noted. No murmur appreciated. Chest pain to palpation. RESPIRATORY: No accessory muscle use. Clear to auscultation. Breath sounds equal bilaterally. GASTROINTESTINAL: Abdomen soft, non-tender, nondistended. Normoactive bowel sounds x4. MUSCULOSKELETAL: No obvious deformities. Extremities without clubbing, cyanosis , or edema. NEUROLOGICAL: Awake and alert. No obvious cranial nerve deficits. Motor grossly within normal limits. 5/5 muscle strength in bilateral upper and lower extremities. Normal speech. PSYCHIATRIC: Appropriate mood and affect; insight and judgment normal. Results - Labs CBC & Chem 7: 05/03/18 13:05 05/03/18 13:05 Labs: Laboratory Results - last 24 hr 05/03/18 05/03/18 13:05 13:05 CBC w Diff Auto diff final WBC 10.3 RBC 5.15 Hgb 14.8 Hct 43.6 MCV 84.7 MCH 28.8 MCHC 34.0 RDW 13.1 Plt Count 309 MPV 9.0 Neut % (Auto) 69.0 Lymph % (Auto) 22.5 [place] % (Auto) 4.2 Eos % (Auto) 3.2 Baso % (Auto) 1.1 Neut # (Auto) 7.2 Lymph # (Auto) 2.3 [place] # (Auto) 0.4 Eos # (Auto) 0.3 Baso # (Auto) 0.1 WBC Differential . Differential Comment . Sodium 139 Potassium 3.7 Chloride 103 Carbon Dioxide 23.7 Anion Gap 12 BUN 11 Creatinine 0.94 Estimated GFR 89 Random Glucose 123 H Calcium 9.1 Total Bilirubin 0.2 AST 17 ALT 33 Alkaline Phosphatase 89 Troponin I Less than 0.02 L Total Protein 7.9 Albumin 3.9 - Imaging Impressions Chest X-Ray 05/03/18 13:39 CONCLUSION: Negative examination. Caprini VTE Risk Assessment Caprini VTE Risk Assessment: No/Low Risk (score <= 1) Caprini Risk Assessment Model: Point Value = 1 Point Value = 2 Point Value = 3 Point Value = 5 Age 41-60 Minor surgery BMI > 25 kg/m2 Swollen legs Varicose veins or History of unexplained or recurrent spontaneous Oral contraceptives or hormone replacement Sepsis (< 1 month) Serious lung disease, including pneumonia (< 1 month) Abnormal pulmonary function Acute myocardial infarction Congestive heart failure (< 1 month) History of inflammatory bowel disease Medical patient at bed rest Age 61-74 Arthroscopic surgery Major open surgery (> 45 min) Laparoscopic surgery (> 45 min) Malignancy Confined to bed (> 72 hours) Immobilizing plaster cast Central venous access Age >= 75 History of VTE Family history of VTE Factor V Leiden Prothrombin [id number] Lupus anticoagulant Anticardiolipin antibodies Elevated serum homocysteine Heparin-induced thrombocytopenia Other congenital or acquired thrombophilia Stroke (< 1 month) Elective arthroplasty Hip, pelvis, or leg fracture Acute spinal cord injury (< 1 month) Prophylaxis Regimen: Total Risk Factor Score Risk Level Prophylaxis Regimen 0-1 Low Early ambulation 2 Moderate Order ONE of the following: *Sequential Compression Device (SCD) *Heparin 5000 units SQ BID 3-4 Higher Order ONE of the following medications: *Heparin 5000 units SQ TID *Enoxaparin/Lovenox 40 mg SQ daily (WT < 150 kg, CrCl > 30 mL/min) *Enoxaparin/Lovenox 30 mg SQ daily (WT < 150 kg, CrCl > 10-29 mL/min) *Enoxaparin/Lovenox 30 mg SQ BID (WT < 150 kg, CrCl > 30 mL/min) AND/OR *Sequential Compression Device (SCD) 5 or more Highest Order ONE of the following medications: *Heparin 5000 units SQ TID (Preferred with Epidurals) *Enoxaparin/Lovenox 40 mg SQ daily (WT < 150 kg, CrCl > 30 mL/min) *Enoxaparin/Lovenox 30 mg SQ daily (WT < 150 kg, CrCl > 10-29 mL/min) *Enoxaparin/Lovenox 30 mg SQ BID (WT < 150 kg, CrCl > 30 mL/min) AND *Sequential Compression Device (SCD) Assessment and Plan - Assessment (1) Chest pain in adult Code(s): R07.9 - Chest pain, unspecified Status: Acute - Plan This is a 37-year-old patient with: Chest pain -Patient presented with chest pain x 2 hours. -Has been admitted to the chest pain center for observation. -Serial EKGs and serial troponins have been ordered for ruling out ACS purposes. -Initial troponin flat. EKG reviewed and showing controlled heart rate with no ST changes to indicated ischemia. Will continue on cardiac telemetry, monitor for any arrhythmias. -Aspirin was given in ED. Nitroglycerin available as needed for chest pain. -Chest x-ray reviewed by me and showing no presence of acute disease. -CBC and BMP reviewed and essentially unremarkable. Will check lipid panel. Denies any history of upper lipidemia. -Patients risk factors for cardiac disease include previous tobacco abuse, obesity. -Further hospitalization and treatment plan will depend on ACS rule out. May undergo possible stress test in a.m. -Patient is stable at this time agreeable to the plan. Hypertension -Recently has been told he has hypertension although this has been controlled with lifestyle changes. Denies taking any medications at home. -Will trend while here in the hospital. May need to be placed on antihypertensive prior to DC. -Will continue to monitor. Anxiety Tachycardia suspect secondary to above -Xanax as needed. Reassurance. DVT prophylaxis: SCDs. Ambulation.
[2018-05-03] MEDS ORDERED: ALPRAZolam 0.25 MG Tablet PO ONE (16:12)
[2018-05-03 16:31] LABS: Creatine Kinase 97 U/L (39-308)
[2018-05-03 18:11] LABS: Bilirubin,Urine Negative (Negative); Clarity,Urine Clear (Clear); Color,Urine Yellow (Yellw/Straw); Glucose,Urine (UA) Negative (Negative); Leukocyte Esterase,Urine Negative (Negative); Nitrite,Urine Negative (Negative); Specific Gravity,Urine Greater/Equal 1.030 (1.002-1.035); Urobilinogen,Urine 0.2 mg/dL (Less than 2)
[2018-05-03 18:15] LABS: RBC,Urine 0-3 /hpf (0-3)
[2018-05-03 18:16] LABS: Squamous Epithelial Cell,Urine 0-5 /hpf (0-5)
[2018-05-03] MEDS: ALPRAZolam 0.25 MG Tablet PO PRN (22:38)
--- NOTE | 2018-05-04 09:37 | P.PNIM ---
Subjective Interval history: Follow-up chest pain. Patient seen and examined, underwent cardiac treadmill stress test. Heart rate in the 120s in the first 15 seconds. Imaging reviewed by on-call radiologist, no ischemia noted normal cardiac treadmill stress test. Patient will be allowed to eat. Start on beta bandar. Will check a TSH to rule out thyroid. Patient is stable at this time. Physical Exam Vital signs: Vital Signs 05/03/18 13:00 05/03/18 13:30 05/03/18 13:39 Temperature 98.5 F Pulse Rate 114 H 111 H 109 H Respiratory Rate 20 20 Blood Pressure 169/94 H 152/88 H Pulse Oximetry 95 93 L 97 05/03/18 15:10 05/03/18 15:24 05/03/18 15:31 Temperature Pulse Rate 108 H 108 H Respiratory Rate 20 18 18 Blood Pressure 154/80 H 123/69 Pulse Oximetry 99 05/03/18 15:32 05/03/18 16:00 05/03/18 17:19 Temperature 98.6 F Pulse Rate 114 H 106 H 109 H Respiratory Rate 18 19 Blood Pressure 127/76 137/93 H Pulse Oximetry 95 93 L 05/03/18 20:00 05/03/18 20:27 05/04/18 00:00 Temperature 96.6 F L 97.0 F L Pulse Rate 96 H 83 Respiratory Rate 20 20 Blood Pressure 127/72 106/64 Pulse Oximetry 94 L 95 94 L 05/04/18 04:00 05/04/18 08:00 05/04/18 08:42 Temperature 96.1 F L 98.2 F Pulse Rate 87 96 H Respiratory Rate 20 16 Blood Pressure 110/70 118/77 Pulse Oximetry 97 94 L 94 L Intake & Output 05/03/18 05/04/18 05/04/18 18:59 06:59 18:59 Intake Total 400 / 400 240 / 240 Balance 400 / 400 240 / 240 Weight 121 kg 113.2 kg Intake: Oral 400 / 400 240 / 240 Other: # Voids 1 3 Narrative: GENERAL: Well-developed, well-nourished patient in [facility]. SKIN: Warm and dry. No rash. HEAD: Normocephalic. Atraumatic. EYES: Pupils equal and round. No scleral icterus. No injection or drainage. ENT: No nasal bleeding or discharge. Mucous membranes pink and moist. NECK: Supple. Trachea midline. CARDIOVASCULAR: Regular rate and rhythm. S1, S2 noted. No murmur appreciated. Chest pain to palpation. RESPIRATORY: No accessory muscle use. Clear to auscultation. Breath sounds equal bilaterally. GASTROINTESTINAL: Abdomen soft, non-tender, nondistended. Normoactive bowel sounds x4. MUSCULOSKELETAL: No obvious deformities. Extremities without clubbing, cyanosis , or edema. NEUROLOGICAL: Awake and alert. No obvious cranial nerve deficits. Motor grossly within normal limits. 5/5 muscle strength in bilateral upper and lower extremities. Normal speech. PSYCHIATRIC: Appropriate mood and affect; insight and judgment normal. Results - Labs CBC & Chem 7: 05/03/18 13:05 05/03/18 13:05 Laboratory Results - last 24 hr 05/03/18 05/03/18 05/03/18 13:05 13:05 16:00 CBC w Diff Auto diff final WBC 10.3 RBC 5.15 Hgb 14.8 Hct 43.6 MCV 84.7 MCH 28.8 MCHC 34.0 RDW 13.1 Plt Count 309 MPV 9.0 Neut % (Auto) 69.0 Lymph % (Auto) 22.5 [place] % (Auto) 4.2 Eos % (Auto) 3.2 Baso % (Auto) 1.1 Neut # (Auto) 7.2 Lymph # (Auto) 2.3 [place] # (Auto) 0.4 Eos # (Auto) 0.3 Baso # (Auto) 0.1 WBC Differential . Differential Comment . Sodium 139 Potassium 3.7 Chloride 103 Carbon Dioxide 23.7 Anion Gap 12 BUN 11 Creatinine 0.94 Estimated GFR 89 Random Glucose 123 H Calcium 9.1 Total Bilirubin 0.2 AST 17 ALT 33 Alkaline Phosphatase 89 Total Creatine Kinase 97 Troponin I Less than 0.02 L Less than 0.02 L Total Protein 7.9 Albumin 3.9 Ur Collection Type Urine Color Urine Clarity Urine pH Ur Specific [place] Urine Protein Urine Glucose (UA) Urine Ketones Urine Occult Blood Urine Nitrate Urine Bilirubin Urine Urobilinogen Ur Leukocyte Esterase Urine RBC Ur Squamous Epith Cells Micro UA Comment Ur Microscopic Review Urine Culture Comments 05/03/18 18:06 CBC w Diff WBC RBC Hgb Hct MCV MCH MCHC RDW Plt Count MPV Neut % (Auto) Lymph % (Auto) [place] % (Auto) Eos % (Auto) Baso % (Auto) Neut # (Auto) Lymph # (Auto) [place] # (Auto) Eos # (Auto) Baso # (Auto) WBC Differential Differential Comment Sodium Potassium Chloride Carbon Dioxide Anion Gap BUN Creatinine Estimated GFR Random Glucose Calcium Total Bilirubin AST ALT Alkaline Phosphatase Total Creatine Kinase Troponin I Total Protein Albumin Ur Collection Type Clean catch Urine Color Yellow Urine Clarity Clear Urine pH 6.0 Ur Specific [place] Greater/equal 1.030 Urine Protein Negative Urine Glucose (UA) Negative Urine Ketones Negative Urine Occult Blood Negative Urine Nitrate Negative Urine Bilirubin Negative Urine Urobilinogen 0.2 Ur Leukocyte Esterase Negative Urine RBC 0-3 Ur Squamous Epith Cells 0-5 Micro UA Comment Culture not ind Ur Microscopic Review Microscopic reviewed Urine Culture Comments Culture not ind - Imaging Impressions Chest X-Ray 05/03/18 13:39 CONCLUSION: Negative examination. Assessment and Plan - Assessment (1) Chest pain in adult Code(s): R07.9 - Chest pain, unspecified Status: Acute - Plan This is a 37-year-old patient with: Chest pain. Resolved -Patient presented with chest pain x 2 hours. -Has been admitted to the chest pain center for observation. -Serial EKGs and serial troponins have been ordered for ruling out ACS purposes. -Serial troponins flat. EKG reviewed and showing controlled heart rate with no ST changes to indicated ischemia. Will continue on cardiac telemetry, monitor for any arrhythmias. None overnight. -Aspirin was given in ED. Nitroglycerin available as needed for chest pain. -Chest x-ray reviewed by me and showing no presence of acute disease. -CBC and BMP reviewed and essentially unremarkable. Lipid panel pending. Denies any history of hyperlipidemia. -Patients risk factors for cardiac disease include previous tobacco abuse, obesity. -Underwent cardiac treadmill stress test today which was normal, laboratory mechanic helper reviewed images. Patient is tachycardic shortly after initiating activity. Poor exercise tolerance. -Advised to start physical activity slowly. To loose weight. Avoid high sodium diet. Will start on Coreg. -Will check a TSH. -Patient is stable at this time agreeable to the plan. Hypertension -Recently has been told he has hypertension although this has been controlled with lifestyle changes. Denies taking any medications at home. -BP trend reviewed as well as tachycardia, will start on beta bandar. -Patient is asymptomatic. Will have patient follow up with PCP. Advised to keep BP diary. Anxiety Tachycardia possibly suspect secondary to above -Xanax as needed. Reassurance. -Has improved. Advised to follow up with PCP with possible need for management outpatient. DVT prophylaxis: SCDs. Ambulation. Discharge Planning: Will DC home today. Follow up PCP. Cardiac diet as tolerated. Activity as tolerated. RX as written.
[2018-05-04 11:33] VITALS: BP 133/87; RESP 20; TEMP 96.8; O2SAT 93
[2018-05-04] MEDS: ALPRAZolam 0.25 MG Tablet PO PRN (11:34)
--- NOTE | 2018-05-04 11:50 | ECG ---
Date Performed: 05/03/2018 Time Performed: 13:03:06 PTAGE: 37 years EKG: SINUS TACHYCARDIA NONSPECIFIC T-WAVE ABNORMALITY ABNORMAL RHYTHM ECG NO PREVIOUS TRACING DOCTOR: Mustapha Whitt Interpretating Date/Time 05/04/2018 11:48:26
--- NOTE | 2018-05-04 12:05 | ECG ---
Date Performed: 05/03/2018 Time Performed: 15:51:18 PTAGE: 37 years EKG: SINUS TACHYCARDIA NONSPECIFIC T-WAVE ABNORMALITY ABNORMAL RHYTHM ECG PREVIOUS TRACING : 05/03/2018 13.03 Since the previous tracing, no significant change noted DOCTOR: Mustapha Whitt Interpretating Date/Time 05/04/2018 12:03:06
[2018-05-04 13:57] VITALS: PULSE 104
[2018-05-04 14:16] LABS: Chol/HDL Ratio 5.49 Ratio; HDL Cholesterol 40.8 mg/dL (40.0-60.0)
--- NOTE | 2018-05-05 11:28 | TR ---
Date Performed: 05/04/2018 Time Performed: 10:30:55 DOCTOR: Seymour Etienne DRUG LIST: CLINICAL HISTORY: ANGINA REASON FOR TEST: Angina REASON FOR ENDING: OBSERVATION: CONCLUSION: Kg protocol completed and test stopped secondary to leg fatigue. Patient has fair exercise tolerance. Heart rate increased quickly after starting treadmill. No reproducible chest dis comfort. Good BP response. Quick and unremarkable recovery.Maximum ZH=608 Target HR Ddrwhytb=842.0% M aximum QM=228/91 Total Exercise Time=4:38 COMMENTS: T wave inversion pre and post exercise, no ST depression.[email or web address] Conclusion: Normal tread mill exercise. No evidence of ischemia.
== END 2018-05-04 14:53 | disposition home or self-care (01) ==
LOC: PHEDA 12:59 → PHEFT 12:59 → PH3 16:13
PROVIDERS: ADMIT Internal Medicine; ATTEND Internal Medicine